=== PATIENT | male | born 1945 | race African-American/Black ===

== ENCOUNTER → 2016-07-30 | Outpatient (CLI) | payer MEDICARE, MEDICAID | END | disposition home or self-care (01) | LOC: RAD 10:28 | PROVIDERS: ATTEND Internal Medicine Nephrology | DX: R10.11 Right upper quadrant pain (principal); M47.897 Other spondylosis, lumbosacral region | CPT/HCPCS: 72110; 74010 ==

== ENCOUNTER → 2016-08-02 | Outpatient (CLI) | payer MEDICARE, MEDICAID | END | disposition home or self-care (01) | LOC: MRI 08:48 | PROVIDERS: ATTEND Internal Medicine Nephrology | DX: R10.11 Right upper quadrant pain (principal); N28.1 Cyst of kidney, acquired | CPT/HCPCS: 76700 ==

== ENCOUNTER 2018-04-14 13:54 | Inpatient (IN) | payer MEDICARE, MEDICAID ==
[~2018-04-14] VITALS: Ht 180.3 cm; Wt 80.3 kg
[2018-04-14] VITALS (21 sets, daily range): BP systolic 111–156; BP diastolic 61–82
[2018-04-14] MEDS ORDERED: LORAZEPAM 2MG/ML CPJ IM STA (13:57)
[2018-04-14] MEDS ORDERED: LORAZEPAM 2MG/ML CPJ ONE (14:06)
[2018-04-14] MEDS ORDERED: FURO-151 PO (14:11)
[2018-04-14] MEDS ORDERED: AMLO10TA80 PO (14:11)
[2018-04-14] MEDS ORDERED: SODIUM CHLORIDE 0.9% 1,000 ML IV ONE (14:19)
[2018-04-14] MEDS ORDERED: LEVETIRACETAM 1000MG/100ML 100 ML IV ONE (14:30)
[2018-04-14] MEDS ORDERED: LORAZEPAM 2MG/ML CPJ IV ONE (14:30)
[2018-04-14] MEDS ORDERED: PROPOFOL 10MG/ML 100ML 100 ML IV SCH (14:45)
[2018-04-14 15:22] LABS: HEMATOCRIT. 33.8 % (42.0-52.0); HEMOGLOBIN. 10.9 g/dL (14.0-18.0); MEAN CORPUSCULAR HEMOGLOBIN 30.3 pg (28.0-32.0); MEAN CORPUSCULAR VOLUME 93.5 fL (80.0-94.0); PLATELET 196 x1000/uL (130-400); RED BLOOD CELL COUNT 3.61 mill/uL (4.7-6.1); RED CELL DISTRIBUTION WIDTH 25.1 % (11.6-14.6)
[2018-04-14 15:24] LABS: CHLORIDE 98 mEq/L (98-107)
[2018-04-14 15:29] LABS: ETHANOL BLOOD < 10 mg/dL
[2018-04-14] MEDS ORDERED: ETOMIDATE 2MG/ML 10ML VIAL IV ONE (15:48)
[2018-04-14] MEDS ORDERED: SUCCINYLCHOLINE CHLORIDE 200MG/10ML IV ONE (15:48)
[2018-04-14 16:05] LABS: PLATELET ESTIMATE NORMAL
[2018-04-14 17:02] LABS: BG BASE EXCESS 2.6 mmol/L (-2.0-2.0); BG CARBOXYHEMOGLOBIN 0.5 % (0.5-1.5); BG DEOXYHEMOGLOBIN 0.3 % (0.0-5.0); BG FRACTION INSPIRED OXYGEN 100; BG HCO3 ACT 27.4 mmol/L (22.0-26.0); BG METHEMOGLOBIN 0.3 % (0.0-1.5); BG OXYGEN SATURATION 99.7 % (92.0-98.5); BG OXYHEMOGLOBIN 98.9 % (94.0-97.0); BG PH 7.422 (7.350-7.450); BG PO2 361.6 mmHg (75.0-100.0); BG SAMPLE SITE RIGHT RADIAL; BG TIDAL VOLUME(mL) 500 mL; BG TOTAL HEMOGLOBIN 10.5 g/dL (12.0-18.0); BG VENT MODE VENT - A/C; BG VENT RATE 12 set
[2018-04-14] MEDS ORDERED: IPRATROPIUM/ALBUTEROL 0.5-3(2.5)MG/3ML NEB HHN PRN (17:15)
[2018-04-14] MEDS ORDERED: CLONIDINE 0.1MG TABLET PO PRN (17:15)
[2018-04-14] MEDS ORDERED: CEFTRIAXONE 1 G PREMIX 50 ML IV SCH (17:45)
[2018-04-14] MEDS ORDERED: MORPHINE SULFATE 2 MG/ML CPJ (NOT FOR IM USE) IV PRN (17:45)
[2018-04-14] MEDS ORDERED: DOCUSATE SODIUM 100MG CAPSULE PO PRN (17:45)
[2018-04-14] MEDS ORDERED: HYDROCODONE/ACETAMINOPHEN 5/325MG TABLET PO PRN (17:45)
[2018-04-14] MEDS ORDERED: GUAIFENESIN 200MG/10ML SUGAR FREE UDC PO PRN (17:45)
[2018-04-14] MEDS ORDERED: IPRATROPIUM/ALBUTEROL 0.5-3(2.5)MG/3ML NEB INH PRN (17:45)
[2018-04-14] MEDS ORDERED: FENTANYL CITRATE/PF 50MCG/ML 2ML VIAL IV PRN (19:00)
[2018-04-14] MEDS ORDERED: DEXT 5%/0.45% NACL 1000ML 1,000 ML IV SCH (19:15)
[2018-04-14] MEDS: LABETALOL 5MG/ML SYR 20 MG/4 ML SYRINGE IV SCH (20:31)
[2018-04-14] MEDS: PROPOFOL 10MG/ML 100ML 100 ML IV PRN (20:31)
[2018-04-14] MEDS: IPRATROPIUM/ALBUTEROL 0.5-3(2.5)MG/3ML NEB HHN SCH (20:56)
[2018-04-14] MEDS ORDERED: CEFEPIME 1,000 MG in DEXTROSE 5% WATER 50 ML IV SCH (21:00)
[2018-04-14] MEDS: PHENYTOIN 100 MG/4 ML UDC NG SCH (21:31)
[2018-04-14] MEDS: METRONIDAZOLE 500 MG PREMIX 100 ML IV SCH (21:31)
[2018-04-14] MEDS: LEVETIRACETAM 500 MG in SODIUM CHLORIDE 0.9% 100 ML IV SCH (22:07)
[2018-04-15] VITALS (70 sets, daily range): BP systolic 82–149; BP diastolic 34–89
[2018-04-15] MEDS: PROPOFOL 10MG/ML 100ML 100 ML IV PRN ×5 (00:21→22:02)
[2018-04-15] MEDS: IPRATROPIUM/ALBUTEROL 0.5-3(2.5)MG/3ML NEB HHN SCH ×4 (01:46→20:25)
[2018-04-15] MEDS: LABETALOL 5MG/ML SYR 20 MG/4 ML SYRINGE IV SCH ×4 (01:51→20:05)
[2018-04-15] MEDS: PHENYTOIN 100 MG/4 ML UDC NG SCH ×3 (05:03→22:01)
[2018-04-15] MEDS: METRONIDAZOLE 500 MG PREMIX 100 ML IV SCH ×2 (05:03→20:05)
[2018-04-15 05:42] LABS: BASOPHILS % 0.6 % (0.0-2.0); HEMATOCRIT. 28.7 % (42.0-52.0); HEMOGLOBIN. 9.4 g/dL (14.0-18.0); MEAN CORPUSCULAR HEMOGLOBIN 30.9 pg (28.0-32.0); MEAN CORPUSCULAR VOLUME 94.4 fL (80.0-94.0); MEAN PLATELET VOLUME 8.5 fl (7.4-10.4); MONOCYTES % 11.3 % (2.0-8.0); NEUTROPHILS % 78.1 % (40.0-76.0); PLATELET 141 x1000/uL (130-400); RED BLOOD CELL COUNT 3.04 mill/uL (4.7-6.1); RED CELL DISTRIBUTION WIDTH 24.8 % (11.6-14.6)
[2018-04-15 08:19] LABS: BG BASE EXCESS -0.4 mmol/L (-2.0-2.0); BG CARBOXYHEMOGLOBIN 0.2 % (0.5-1.5); BG DEOXYHEMOGLOBIN 1.8 % (0.0-5.0); BG FRACTION INSPIRED OXYGEN 50; BG HCO3 ACT 24.6 mmol/L (22.0-26.0); BG METHEMOGLOBIN 0.3 % (0.0-1.5); BG OXYGEN SATURATION 98.2 % (92.0-98.5); BG OXYHEMOGLOBIN 97.7 % (94.0-97.0); BG PH 7.386 (7.350-7.450); BG PO2 134.2 mmHg (75.0-100.0); BG SAMPLE SITE RIGHT RADIAL; BG TIDAL VOLUME(mL) 500 mL; BG TOTAL HEMOGLOBIN 9.4 g/dL (12.0-18.0); BG VENT MODE VENT - A/C; BG VENT RATE 12 set
[2018-04-15] MEDS: LEVETIRACETAM 500 MG in SODIUM CHLORIDE 0.9% 100 ML IV SCH ×2 (08:29→22:01)
[2018-04-15] MEDS: PANTOPRAZOLE SODIUM 40 MG/VIAL IV SCH (08:31)
[2018-04-15 10:25] LABS: CHLORIDE 101 mEq/L (98-107)
[2018-04-15 10:34] LABS: HDL CHOLESTEROL 56 mg/dL (40-59); LDL CHOLESTEROL 78 mg/dL (5-100)
[2018-04-15] MEDS: BLOOD SUGAR DIAGNOSTIC STRIP TEST SCH ×3 (11:09→23:22)
[2018-04-15] MEDS: INSULIN LISPRO 100 UNITS/ML SUBCUT SCH ×2 (11:36→23:22)
[2018-04-15] MEDS: NOREPINEPHRINE 4 MG in DEXT 5% WATER 246 ML IV PRN (12:05)
[2018-04-15] MEDS ORDERED: LIDOCAINE HCL 1% 20ML VIAL (Pyxis) INJ ONE (14:13)
[2018-04-15] MEDS ORDERED: HEPARIN 100 UNITS/1 ML VIAL IVF PRN (15:15)
[2018-04-15] MEDS: CEFEPIME 1,000 MG in DEXTROSE 5% WATER 50 ML IV SCH (17:48)
[2018-04-16] VITALS (94 sets, daily range): BP systolic 102–179; BP diastolic 36–117
[2018-04-16] MEDS: LABETALOL 5MG/ML SYR 20 MG/4 ML SYRINGE IV SCH (02:00)
[2018-04-16] MEDS: PROPOFOL 10MG/ML 100ML 100 ML IV PRN ×5 (03:57→23:25)
[2018-04-16] MEDS: PHENYTOIN 100 MG/4 ML UDC NG SCH ×3 (05:27→21:07)
[2018-04-16] MEDS: BLOOD SUGAR DIAGNOSTIC STRIP TEST SCH ×4 (05:27→23:25)
[2018-04-16] MEDS: INSULIN LISPRO 100 UNITS/ML SUBCUT SCH ×4 (05:28→23:25)
[2018-04-16] MEDS: IPRATROPIUM/ALBUTEROL 0.5-3(2.5)MG/3ML NEB HHN SCH ×2 (07:42→13:26)
[2018-04-16] MEDS: LOSARTAN POTASSIUM 50 MG TABLET GT SCH ×2 (08:54→21:07)
[2018-04-16] MEDS: ACETAMINOPHEN 325MG TABLET PO PRN (08:54)
[2018-04-16] MEDS: PANTOPRAZOLE SODIUM 40 MG/VIAL IV SCH (08:55)
[2018-04-16] MEDS: METRONIDAZOLE 500 MG PREMIX 100 ML IV SCH ×2 (08:55→21:06)
[2018-04-16 11:06] LABS: BG BASE EXCESS 3.2 mmol/L (-2.0-2.0); BG CARBOXYHEMOGLOBIN 0.1 % (0.5-1.5); BG DEOXYHEMOGLOBIN 1.4 % (0.0-5.0); BG FRACTION INSPIRED OXYGEN 40; BG HCO3 ACT 27.7 mmol/L (22.0-26.0); BG METHEMOGLOBIN 0.5 % (0.0-1.5); BG OXYGEN SATURATION 98.6 % (92.0-98.5); BG PCO2 41.9 mmHg (35.0-45.0); BG PH 7.438 (7.350-7.450); BG PO2 143.8 mmHg (75.0-100.0); BG SAMPLE SITE RIGHT RADIAL; BG TIDAL VOLUME(mL) 500 mL; BG TOTAL HEMOGLOBIN 9.8 g/dL (12.0-18.0); BG VENT MODE VENT - A/C; BG VENT RATE 12 set
[2018-04-16] MEDS: LEVETIRACETAM 500 MG in SODIUM CHLORIDE 0.9% 100 ML IV SCH ×2 (11:51→22:08)
[2018-04-16] MEDS ORDERED: ACETYLCYSTEINE 100MG/ML 10% VIAL 4ML INH SCH (14:00)
[2018-04-16] MEDS ORDERED: DIPH1TAB24 MT (14:55)
[2018-04-16] MEDS ORDERED: METO-539 PO (14:55)
[2018-04-16] MEDS ORDERED: FURO40TA5 PO (14:55)
[2018-04-16] MEDS ORDERED: LORA1TAB PO (14:55)
[2018-04-16] MEDS ORDERED: AMLO5TAB88 MT (14:55)
[2018-04-16] MEDS ORDERED: OMEP10SU2 PO (14:55)
[2018-04-16] MEDS ORDERED: TRAM-529 PO (14:55)
[2018-04-16] MEDS ORDERED: PIOG30TA70 PO (14:55)
[2018-04-16] MEDS ORDERED: ESOM40CA53 PO (14:55)
[2018-04-16] MEDS ORDERED: CLON1PAT10 TD (14:55)
[2018-04-16] MEDS ORDERED: LEVE500T19 PO (14:55)
[2018-04-16] MEDS ORDERED: HYDROCODONE/APAP 7.5/325MG 1 TAB TABLET PO PRN (16:30)
[2018-04-16] MEDS: CEFEPIME 1,000 MG in DEXTROSE 5% WATER 50 ML IV SCH (17:27)
[2018-04-16] MEDS: MAGNESIUM/ALUMINUM HYDROXIDE/SIMETHICONE 30ML UDC PO PRN (21:07)
[2018-04-17] VITALS (96 sets, daily range): BP systolic 95–197; BP diastolic 42–111
[2018-04-17] MEDS: IPRATROPIUM/ALBUTEROL 0.5-3(2.5)MG/3ML NEB HHN SCH ×4 (00:58→20:03)
[2018-04-17] MEDS: PROPOFOL 10MG/ML 100ML 100 ML IV PRN ×5 (03:11→19:47)
[2018-04-17] MEDS: PHENYTOIN 100 MG/4 ML UDC NG SCH ×3 (05:53→21:12)
[2018-04-17] MEDS: BLOOD SUGAR DIAGNOSTIC STRIP TEST SCH ×3 (05:53→18:32)
[2018-04-17] MEDS: INSULIN LISPRO 100 UNITS/ML SUBCUT SCH ×2 (05:54→18:00)
[2018-04-17 07:25] LABS: HEMOGLOBIN. 9.3 g/dL (14.0-18.0); MEAN CORPUSCULAR HEMOGLOBIN 30.6 pg (28.0-32.0); MEAN CORPUSCULAR VOLUME 92.2 fL (80.0-94.0); MEAN PLATELET VOLUME 8.7 fl (7.4-10.4); PLATELET 136 x1000/uL (130-400); RED BLOOD CELL COUNT 3.04 mill/uL (4.7-6.1); RED CELL DISTRIBUTION WIDTH 23.4 % (11.6-14.6)
[2018-04-17] MEDS ORDERED: SODIUM CHLORIDE 0.9% 250 ML IV ONE (07:45)
[2018-04-17] MEDS: METRONIDAZOLE 500 MG PREMIX 100 ML IV SCH ×2 (08:06→20:37)
[2018-04-17] MEDS: ACETAMINOPHEN 325MG TABLET PO PRN ×2 (08:06→15:29)
[2018-04-17] MEDS: LOSARTAN POTASSIUM 50 MG TABLET GT SCH ×3 (08:07→20:43)
[2018-04-17 08:43] LABS: BG BASE EXCESS 0.7 mmol/L (-2.0-2.0); BG CARBOXYHEMOGLOBIN 0.3 % (0.5-1.5); BG DEOXYHEMOGLOBIN 1.7 % (0.0-5.0); BG FRACTION INSPIRED OXYGEN 40; BG HCO3 ACT 25.7 mmol/L (22.0-26.0); BG METHEMOGLOBIN 0.1 % (0.0-1.5); BG OXYGEN SATURATION 98.3 % (92.0-98.5); BG OXYHEMOGLOBIN 97.9 % (94.0-97.0); BG PCO2 43.1 mmHg (35.0-45.0); BG PH 7.394 (7.350-7.450); BG PO2 137.4 mmHg (75.0-100.0); BG SAMPLE SITE RIGHT RADIAL; BG TIDAL VOLUME(mL) 500 mL; BG TOTAL HEMOGLOBIN 9.6 g/dL (12.0-18.0); BG VENT MODE VENT - A/C; BG VENT RATE 12 set
[2018-04-17] MEDS: LEVETIRACETAM 500 MG in SODIUM CHLORIDE 0.9% 100 ML IV SCH ×2 (09:35→20:38)
[2018-04-17] MEDS: PANTOPRAZOLE SODIUM 40 MG/VIAL IV SCH (09:35)
[2018-04-17 10:00] LABS: ATYPICAL LYMPHOCYTES 1; PLATELET ESTIMATE NORMAL
[2018-04-17] MEDS: CEFEPIME 1,000 MG in DEXTROSE 5% WATER 50 ML IV SCH (17:37)
[2018-04-17] MEDS: BISACODYL 10MG SUPP PR PRN (20:38)
[2018-04-17] MEDS: MAGNESIUM/ALUMINUM HYDROXIDE/SIMETHICONE 30ML UDC PO PRN (20:38)
[2018-04-17] MEDS ORDERED: EPOETIN ALFA 10000UNITS/ML VIAL SUBCUT SCH (21:00)
[2018-04-17] MEDS ORDERED: EPOETIN ALFA 4000UNITS/ML VIAL SUBCUT SCH (21:00)
[2018-04-17] MEDS ORDERED: PARICALCITOL 5 MCG/ML 1ML IV SCH (21:00)
[2018-04-18] VITALS (92 sets, daily range): BP systolic 86–205; BP diastolic 35–191
[2018-04-18] MEDS: PROPOFOL 10MG/ML 100ML 100 ML IV PRN ×3 (01:12→09:58)
[2018-04-18] MEDS: IPRATROPIUM/ALBUTEROL 0.5-3(2.5)MG/3ML NEB HHN SCH ×4 (01:26→21:17)
[2018-04-18] MEDS: INSULIN LISPRO 100 UNITS/ML SUBCUT SCH ×4 (06:00→18:00)
[2018-04-18] MEDS: PHENYTOIN 100 MG/4 ML UDC NG SCH ×3 (06:08→22:36)
[2018-04-18] MEDS: BLOOD SUGAR DIAGNOSTIC STRIP TEST SCH ×4 (06:15→18:00)
[2018-04-18] MEDS: METRONIDAZOLE 500 MG PREMIX 100 ML IV SCH ×2 (09:56→20:59)
[2018-04-18] MEDS: LEVETIRACETAM 500 MG in SODIUM CHLORIDE 0.9% 100 ML IV SCH ×2 (09:56→20:58)
[2018-04-18] MEDS: LOSARTAN POTASSIUM 50 MG TABLET GT SCH ×2 (09:58→20:59)
[2018-04-18] MEDS: PANTOPRAZOLE SODIUM 40 MG/VIAL IV SCH (09:59)
[2018-04-18 12:30] LABS: BASOPHILS % 0.8 % (0.0-2.0); EOSINOPHILS % 2.4 % (0.0-5.0); HEMATOCRIT. 30.7 % (42.0-52.0); HEMOGLOBIN. 10.1 g/dL (14.0-18.0); LYMPHOCYTES % 10.3 % (20.0-50.0); MEAN CORPUSCULAR HEMOGLOBIN 30.4 pg (28.0-32.0); MEAN CORPUSCULAR VOLUME 92.3 fL (80.0-94.0); MEAN PLATELET VOLUME 8.4 fl (7.4-10.4); MONOCYTES % 12.8 % (2.0-8.0); NEUTROPHILS % 73.7 % (40.0-76.0); PLATELET 157 x1000/uL (130-400); RED BLOOD CELL COUNT 3.32 mill/uL (4.7-6.1); RED CELL DISTRIBUTION WIDTH 23.4 % (11.6-14.6)
[2018-04-18 12:35] LABS: PHOSPHORUS 6.8 mg/dL (2.5-4.9)
[2018-04-18] MEDS: MORPHINE SULFATE 4 MG/ML CPJ (NOT FOR IM USE) IV PRN ×2 (12:57→22:40)
[2018-04-18 13:08] LABS: PLATELET ESTIMATE NORMAL
[2018-04-18] MEDS: CINACALCET HCL 30MG TABLET PO SCH (16:18)
[2018-04-18 16:47] LABS: BG BASE EXCESS 2.7 mmol/L (-2.0-2.0); BG CARBOXYHEMOGLOBIN 0.6 % (0.5-1.5); BG CPAP (cmH2O) 0 cm(H2O); BG DEOXYHEMOGLOBIN 2.6 % (0.0-5.0); BG HCO3 ACT 27.3 mmol/L (22.0-26.0); BG METHEMOGLOBIN 0.4 % (0.0-1.5); BG OXYGEN SATURATION 97.4 % (92.0-98.5); BG OXYHEMOGLOBIN 96.4 % (94.0-97.0); BG PCO2 42.3 mmHg (35.0-45.0); BG PH 7.428 (7.350-7.450); BG PO2 98.7 mmHg (75.0-100.0); BG SAMPLE SITE RIGHT RADIAL; BG TOTAL HEMOGLOBIN 11.2 g/dL (12.0-18.0); BG VENT MODE VENT - CPAP
[2018-04-18] MEDS: CEFEPIME 1,000 MG in DEXTROSE 5% WATER 50 ML IV SCH (18:00)
[2018-04-18] MEDS: LORAZEPAM 2MG/ML CPJ IV PRN ×2 (18:01→22:39)
[2018-04-18 22:02] LABS: BG BASE EXCESS 2.1 mmol/L (-2.0-2.0); BG CARBOXYHEMOGLOBIN 0.7 % (0.5-1.5); BG DEOXYHEMOGLOBIN 19.2 % (0.0-5.0); BG FRACTION INSPIRED OXYGEN 40; BG HCO3 ACT 27.8 mmol/L (22.0-26.0); BG METHEMOGLOBIN 0.3 % (0.0-1.5); BG OXYGEN SATURATION 80.6 % (92.0-98.5); BG OXYHEMOGLOBIN 79.8 % (94.0-97.0); BG PCO2 47.7 mmHg (35.0-45.0); BG PH 7.383 (7.350-7.450); BG PO2 48.8 mmHg (75.0-100.0); BG SAMPLE SITE RIGHT RADIAL; BG TOTAL HEMOGLOBIN 12.7 g/dL (12.0-18.0); BG VENT MODE MASK - AEROSOL
[2018-04-19] VITALS (103 sets, daily range): BP systolic 90–186; BP diastolic 26–143
[2018-04-19] MEDS: IPRATROPIUM/ALBUTEROL 0.5-3(2.5)MG/3ML NEB HHN SCH ×4 (00:37→21:41)
[2018-04-19 00:49] LABS: BG BASE EXCESS 2.7 mmol/L (-2.0-2.0); BG CARBOXYHEMOGLOBIN 0.2 % (0.5-1.5); BG DEOXYHEMOGLOBIN 4.6 % (0.0-5.0); BG FRACTION INSPIRED OXYGEN 50; BG HCO3 ACT 28.3 mmol/L (22.0-26.0); BG METHEMOGLOBIN 0.5 % (0.0-1.5); BG OXYGEN SATURATION 95.4 % (92.0-98.5); BG OXYHEMOGLOBIN 94.7 % (94.0-97.0); BG PCO2 47.8 mmHg (35.0-45.0); BG PO2 84.6 mmHg (75.0-100.0); BG SAMPLE SITE RIGHT RADIAL; BG TOTAL HEMOGLOBIN 11.8 g/dL (12.0-18.0); BG VENT MODE MASK - AEROSOL
[2018-04-19] MEDS: ONDANSETRON HCL 4MG/2ML INJ IV PRN (02:00)
[2018-04-19] MEDS: INSULIN LISPRO 100 UNITS/ML SUBCUT SCH ×5 (06:00→23:56)
[2018-04-19] MEDS: BLOOD SUGAR DIAGNOSTIC STRIP TEST SCH ×5 (06:00→23:56)
[2018-04-19] MEDS: PHENYTOIN 100 MG/4 ML UDC NG SCH ×3 (07:56→22:28)
[2018-04-19] MEDS: METRONIDAZOLE 500 MG PREMIX 100 ML IV SCH ×2 (08:37→21:19)
[2018-04-19] MEDS: LOSARTAN POTASSIUM 50 MG TABLET GT SCH ×2 (08:37→21:19)
[2018-04-19] MEDS: LEVETIRACETAM 500 MG in SODIUM CHLORIDE 0.9% 100 ML IV SCH (08:37)
[2018-04-19 09:54] LABS: BG BASE EXCESS 0.3 mmol/L (-2.0-2.0); BG CARBOXYHEMOGLOBIN 1.1 % (0.5-1.5); BG DEOXYHEMOGLOBIN 3.1 % (0.0-5.0); BG FRACTION INSPIRED OXYGEN 50; BG HCO3 ACT 25.8 mmol/L (22.0-26.0); BG METHEMOGLOBIN 0.3 % (0.0-1.5); BG OXYGEN SATURATION 96.9 % (92.0-98.5); BG OXYHEMOGLOBIN 95.5 % (94.0-97.0); BG PCO2 45.5 mmHg (35.0-45.0); BG PH 7.372 (7.350-7.450); BG PO2 93.6 mmHg (75.0-100.0); BG SAMPLE SITE RIGHT RADIAL; BG TOTAL HEMOGLOBIN 11.5 g/dL (12.0-18.0); BG VENT MODE MASK - AEROSOL
[2018-04-19] MEDS: LORAZEPAM 2MG/ML CPJ IV PRN (10:13)
[2018-04-19] MEDS: PANTOPRAZOLE SODIUM 40 MG/VIAL IV SCH (10:13)
[2018-04-19] MEDS: ENOXAPARIN 30MG/0.3ML SYR SUBCUT SCH (13:46)
[2018-04-19] MEDS: METOCLOPRAMIDE HCL 10MG/2ML VIAL IV SCH ×2 (13:47→21:19)
[2018-04-19] MEDS: HYDRALAZINE 20MG/ML VIAL IV PRN (13:47)
[2018-04-19] MEDS: CINACALCET HCL 30MG TABLET PO SCH (17:00)
[2018-04-19] MEDS: CEFEPIME 1,000 MG in DEXTROSE 5% WATER 50 ML IV SCH (17:58)
[2018-04-19] MEDS ORDERED: EPOETIN ALFA 10000UNITS/ML VIAL SUBCUT SCH (21:00)
[2018-04-19] MEDS: PARICALCITOL 2 MCG/ML VIAL IV SCH (21:19)
[2018-04-19] MEDS: LEVETIRACETAM 500MG/5ML CUP PO SCH (21:19)
[2018-04-20] VITALS (60 sets, daily range): BP systolic 118–188; BP diastolic 54–138
[2018-04-20] MEDS: IPRATROPIUM/ALBUTEROL 0.5-3(2.5)MG/3ML NEB HHN SCH ×4 (02:32→20:19)
[2018-04-20] MEDS: BLOOD SUGAR DIAGNOSTIC STRIP TEST SCH ×4 (06:00→23:24)
[2018-04-20] MEDS: INSULIN LISPRO 100 UNITS/ML SUBCUT SCH ×4 (06:00→23:24)
[2018-04-20] MEDS: PHENYTOIN 100 MG/4 ML UDC NG SCH ×3 (06:00→21:12)
[2018-04-20] MEDS: METOCLOPRAMIDE HCL 10MG/2ML VIAL IV SCH ×3 (07:16→21:13)
[2018-04-20] MEDS: HYDRALAZINE 20MG/ML VIAL IV PRN ×2 (07:53→23:23)
[2018-04-20 08:34] LABS: BG BASE EXCESS 2.9 mmol/L (-2.0-2.0); BG DEOXYHEMOGLOBIN 4.2 % (0.0-5.0); BG FRACTION INSPIRED OXYGEN 21; BG HCO3 ACT 26.4 mmol/L (22.0-26.0); BG METHEMOGLOBIN 0.4 % (0.0-1.5); BG OXYGEN SATURATION 95.7 % (92.0-98.5); BG OXYHEMOGLOBIN 94.4 % (94.0-97.0); BG PCO2 36.5 mmHg (35.0-45.0); BG PH 7.477 (7.350-7.450); BG SAMPLE SITE RIGHT BRACHIAL; BG TOTAL HEMOGLOBIN 12.2 g/dL (12.0-18.0); BG VENT MODE ROOM AIR
[2018-04-20] MEDS: PANTOPRAZOLE SODIUM 40 MG/VIAL IV SCH (08:35)
[2018-04-20] MEDS: LEVETIRACETAM 500MG/5ML CUP PO SCH (09:58)
[2018-04-20] MEDS: DOCUSATE SODIUM SUGAR FREE 100MG/10ML UDC NG PRN (09:58)
[2018-04-20] MEDS: METRONIDAZOLE 500 MG PREMIX 100 ML IV SCH ×2 (09:59→21:27)
[2018-04-20] MEDS: ONDANSETRON HCL 4MG/2ML INJ IV PRN (09:59)
[2018-04-20] MEDS: LOSARTAN POTASSIUM 50 MG TABLET GT SCH ×2 (09:59→21:13)
[2018-04-20] MEDS: AMLODIPINE 5MG TABLET PO SCH ×2 (10:00→21:13)
[2018-04-20] MEDS: ENOXAPARIN 30MG/0.3ML SYR SUBCUT SCH (10:00)
[2018-04-20] MEDS: MORPHINE SULFATE 4 MG/ML CPJ (NOT FOR IM USE) IV PRN ×2 (10:08→16:25)
[2018-04-20] MEDS: CLONIDINE 0.1MG TABLET PO PRN (15:21)
[2018-04-20] MEDS: BISACODYL 10MG SUPP PR PRN (15:21)
[2018-04-20] MEDS: ACETAMINOPHEN 325MG TABLET PO PRN (16:24)
[2018-04-20] MEDS: CINACALCET HCL 30MG TABLET PO SCH (17:00)
[2018-04-20] MEDS: LORAZEPAM 2MG/ML CPJ IV PRN (17:16)
[2018-04-20] MEDS: CEFEPIME 1,000 MG in DEXTROSE 5% WATER 50 ML IV SCH (18:11)
[2018-04-20] MEDS: DIPHENHYDRAMINE 50MG/ML VIAL IV PRN (21:13)
[2018-04-20] MEDS: LEVETIRACETAM 500 MG in SODIUM CHLORIDE 0.9% 100 ML IV SCH (22:23)
[2018-04-21] VITALS (90 sets, daily range): BP systolic 68–194; BP diastolic 26–91
[2018-04-21] MEDS: LORAZEPAM 2MG/ML CPJ IV PRN (01:06)
[2018-04-21] MEDS: IPRATROPIUM/ALBUTEROL 0.5-3(2.5)MG/3ML NEB HHN SCH ×4 (02:11→20:23)
[2018-04-21] MEDS: METOCLOPRAMIDE HCL 10MG/2ML VIAL IV SCH ×3 (05:53→21:22)
[2018-04-21] MEDS: PHENYTOIN 100 MG/4 ML UDC NG SCH ×3 (05:53→21:22)
[2018-04-21] MEDS: BLOOD SUGAR DIAGNOSTIC STRIP TEST SCH ×4 (05:53→23:23)
[2018-04-21] MEDS: INSULIN LISPRO 100 UNITS/ML SUBCUT SCH ×4 (05:53→23:23)
[2018-04-21 06:10] LABS: HEMATOCRIT. 31.8 % (42.0-52.0); HEMOGLOBIN. 10.4 g/dL (14.0-18.0); MEAN CORPUSCULAR HEMOGLOBIN 30.5 pg (28.0-32.0); MEAN CORPUSCULAR VOLUME 93.1 fL (80.0-94.0); MEAN PLATELET VOLUME 8.5 fl (7.4-10.4); PLATELET 263 x1000/uL (130-400); RED BLOOD CELL COUNT 3.42 mill/uL (4.7-6.1); RED CELL DISTRIBUTION WIDTH 22.4 % (11.6-14.6)
[2018-04-21 07:59] LABS: PLATELET ESTIMATE NORMAL
[2018-04-21] MEDS: PANTOPRAZOLE SODIUM 40 MG/VIAL IV SCH (07:59)
[2018-04-21] MEDS: METRONIDAZOLE 500 MG PREMIX 100 ML IV SCH ×2 (08:00→20:54)
[2018-04-21] MEDS: LOSARTAN POTASSIUM 50 MG TABLET GT SCH ×2 (09:00→20:54)
[2018-04-21] MEDS: AMLODIPINE 5MG TABLET PO SCH ×2 (09:00→20:54)
[2018-04-21] MEDS: ENOXAPARIN 30MG/0.3ML SYR SUBCUT SCH (09:00)
[2018-04-21] MEDS: DIPHENHYDRAMINE 50MG/ML VIAL IV PRN (10:14)
[2018-04-21] MEDS ORDERED: FLUMAZENIL 0.1 MG/ML 5ML VIAL IV NR (11:00)
[2018-04-21] MEDS: SUCRALFATE 1 G/10 ML UDC PO SCH ×3 (12:48→23:09)
[2018-04-21] MEDS: PROPOFOL 10MG/ML 100ML 100 ML IV PRN ×2 (12:51→17:24)
[2018-04-21] MEDS: DEXT 5%/0.9% NACL 1,000 ML IV SCH (12:53)
[2018-04-21] MEDS: NOREPINEPHRINE 4 MG in DEXT 5% WATER 246 ML IV PRN (13:46)
[2018-04-21] MEDS ORDERED: SODIUM CHLORIDE 0.9% 10ML VIAL ONE (15:56)
[2018-04-21] MEDS ORDERED: ETOMIDATE 2MG/ML 10ML VIAL IV ONE (15:56)
[2018-04-21] MEDS ORDERED: VECURONIUM BROMIDE 10 MG/VIAL IV ONE (15:56)
[2018-04-21 16:58] LABS: HEMATOCRIT 32.7 % (42.0-52.0); HEMOGLOBIN 10.6 g/dL (14.0-18.0)
[2018-04-21] MEDS: CINACALCET HCL 30MG TABLET PO SCH (17:00)
[2018-04-21] MEDS: LEVETIRACETAM 500 MG in SODIUM CHLORIDE 0.9% 100 ML IV SCH ×2 (17:08→22:24)
[2018-04-21 17:26] LABS: FOLIC ACID (FOLATE) SERUM 7.8 ng/mL (>5.38)
[2018-04-21 17:37] LABS: BG BASE EXCESS 2.3 mmol/L (-2.0-2.0); BG CARBOXYHEMOGLOBIN 0.3 % (0.5-1.5); BG FRACTION INSPIRED OXYGEN 80; BG HCO3 ACT 25.4 mmol/L (22.0-26.0); BG METHEMOGLOBIN 0.5 % (0.0-1.5); BG OXYHEMOGLOBIN 98.2 % (94.0-97.0); BG PCO2 33.7 mmHg (35.0-45.0); BG PH 7.495 (7.350-7.450); BG PO2 158.6 mmHg (75.0-100.0); BG SAMPLE SITE RIGHT RADIAL; BG TIDAL VOLUME(mL) 500 mL; BG TOTAL HEMOGLOBIN 9.9 g/dL (12.0-18.0); BG VENT MODE VENT - A/C; BG VENT RATE 14 set
[2018-04-21 17:39] LABS: TOTAL IRON BINDING CAPACITY 120 ug/dL (250-450)
[2018-04-21] MEDS: DEXTROSE 50% WATER 50ML SYRINGE IV PRN ×2 (18:06→23:25)
[2018-04-21] MEDS: CEFEPIME 1,000 MG in DEXTROSE 5% WATER 50 ML IV SCH (18:34)
[2018-04-21 23:13] LABS: HEMATOCRIT 28.2 % (42.0-52.0); HEMOGLOBIN 9.4 g/dL (14.0-18.0)
[2018-04-22] VITALS (84 sets, daily range): BP systolic 93–174; BP diastolic 43–87
[2018-04-22] MEDS: PROPOFOL 10MG/ML 100ML 100 ML IV PRN ×2 (00:29→05:14)
[2018-04-22] MEDS: IPRATROPIUM/ALBUTEROL 0.5-3(2.5)MG/3ML NEB HHN SCH ×3 (02:08→20:39)
[2018-04-22] MEDS: SUCRALFATE 1 G/10 ML UDC PO SCH ×3 (05:14→17:41)
[2018-04-22] MEDS: METOCLOPRAMIDE HCL 10MG/2ML VIAL IV SCH ×3 (05:14→21:36)
[2018-04-22] MEDS: PHENYTOIN 100 MG/4 ML UDC NG SCH ×3 (05:14→21:36)
[2018-04-22 05:35] LABS: EOSINOPHILS % 3.6 % (0.0-5.0); HEMATOCRIT. 30.1 % (42.0-52.0); HEMOGLOBIN. 9.7 g/dL (14.0-18.0); LYMPHOCYTES % 9.6 % (20.0-50.0); MEAN CORPUSCULAR HEMOGLOBIN 30.1 pg (28.0-32.0); MEAN CORPUSCULAR VOLUME 92.8 fL (80.0-94.0); MEAN PLATELET VOLUME 8.2 fl (7.4-10.4); MONOCYTES % 14.5 % (2.0-8.0); NEUTROPHILS % 71.3 % (40.0-76.0); PLATELET 266 x1000/uL (130-400); RED BLOOD CELL COUNT 3.24 mill/uL (4.7-6.1)
[2018-04-22 05:54] LABS: PHOSPHORUS 3.9 mg/dL (2.5-4.9)
[2018-04-22] MEDS: INSULIN LISPRO 100 UNITS/ML SUBCUT SCH ×3 (06:00→18:00)
[2018-04-22] MEDS: BLOOD SUGAR DIAGNOSTIC STRIP TEST SCH ×3 (06:14→18:37)
[2018-04-22 07:27] LABS: BG BASE EXCESS 4.5 mmol/L (-2.0-2.0); BG CARBOXYHEMOGLOBIN 0.3 % (0.5-1.5); BG DEOXYHEMOGLOBIN 0.6 % (0.0-5.0); BG HCO3 ACT 28.1 mmol/L (22.0-26.0); BG METHEMOGLOBIN 0.3 % (0.0-1.5); BG OXYGEN SATURATION 99.4 % (92.0-98.5); BG OXYHEMOGLOBIN 98.8 % (94.0-97.0); BG PCO2 37.5 mmHg (35.0-45.0); BG PH 7.492 (7.350-7.450); BG PO2 207.2 mmHg (75.0-100.0); BG SAMPLE SITE RIGHT RADIAL; BG TIDAL VOLUME(mL) 500 mL; BG TOTAL HEMOGLOBIN 9.1 g/dL (12.0-18.0); BG VENT MODE VENT - A/C; BG VENT RATE 14 set
[2018-04-22] MEDS: PANTOPRAZOLE SODIUM 40 MG/VIAL IV SCH ×2 (09:17→17:29)
[2018-04-22] MEDS: LOSARTAN POTASSIUM 50 MG TABLET GT SCH ×2 (09:18→20:30)
[2018-04-22] MEDS: AMLODIPINE 5MG TABLET PO SCH ×2 (09:18→20:30)
[2018-04-22] MEDS: DEXT 5%/0.9% NACL 1,000 ML IV SCH (10:12)
[2018-04-22] MEDS: LEVETIRACETAM 500 MG in SODIUM CHLORIDE 0.9% 100 ML IV SCH ×2 (10:12→21:36)
[2018-04-22] MEDS: METRONIDAZOLE 500 MG PREMIX 100 ML IV SCH ×2 (11:03→20:28)
[2018-04-22] MEDS: FENTANYL CITRATE/PF 500 MCG in SODIUM CHLORIDE 0.9% 40 ML IV PRN ×2 (11:58→20:29)
[2018-04-22] MEDS: BISACODYL 10MG SUPP PR PRN (12:00)
[2018-04-22] MEDS ORDERED: DEXTROSE 50% WATER 50ML SYRINGE IV PRN (16:15)
[2018-04-22] MEDS: CINACALCET HCL 30MG TABLET PO SCH (17:29)
[2018-04-22] MEDS: CEFEPIME 1,000 MG in DEXTROSE 5% WATER 50 ML IV SCH (17:29)
[2018-04-22] MEDS: MORPHINE SULFATE 4 MG/ML CPJ (NOT FOR IM USE) IV PRN (17:51)
[2018-04-22] MEDS: HYDRALAZINE 20MG/ML VIAL IV PRN (19:24)
[2018-04-22 19:43] LABS: HEMOGLOBIN 10.2 g/dL (14.0-18.0)
[2018-04-22 20:27] LABS: INR 1.1; PARTIAL THROMBOPLASTIN TIME 33.1 sec (23.4-31.0)
[2018-04-22] MEDS: PARICALCITOL 2 MCG/ML VIAL IV SCH (20:29)
[2018-04-22] MEDS: DIPHENHYDRAMINE 50MG/ML VIAL IV PRN (20:57)
[2018-04-23] VITALS (96 sets, daily range): BP systolic 92–195; BP diastolic 41–162
[2018-04-23] MEDS: BLOOD SUGAR DIAGNOSTIC STRIP TEST SCH ×5 (00:13→23:59)
[2018-04-23] MEDS: DEXTROSE 50% WATER 50ML SYRINGE IV PRN (00:23)
[2018-04-23 01:15] LABS: HEMOGLOBIN 9.2 g/dL (14.0-18.0)
[2018-04-23] MEDS: IPRATROPIUM/ALBUTEROL 0.5-3(2.5)MG/3ML NEB HHN SCH ×4 (01:39→20:27)
[2018-04-23] MEDS: SUCRALFATE 1 G/10 ML UDC PO SCH ×4 (05:47→18:40)
[2018-04-23] MEDS: PHENYTOIN 100 MG/4 ML UDC NG SCH ×3 (05:47→22:03)
[2018-04-23] MEDS: INSULIN LISPRO 100 UNITS/ML SUBCUT SCH ×5 (05:49→23:59)
[2018-04-23] MEDS: METOCLOPRAMIDE HCL 10MG/2ML VIAL IV SCH ×3 (05:51→22:03)
[2018-04-23] MEDS: FENTANYL CITRATE/PF 500 MCG in SODIUM CHLORIDE 0.9% 40 ML IV PRN ×3 (05:55→21:57)
[2018-04-23 06:39] LABS: HEMATOCRIT. 28.9 % (42.0-52.0); HEMOGLOBIN. 9.3 g/dL (14.0-18.0); MEAN CORPUSCULAR HEMOGLOBIN 30.2 pg (28.0-32.0); MEAN CORPUSCULAR VOLUME 93.7 fL (80.0-94.0); PLATELET 277 x1000/uL (130-400); RED BLOOD CELL COUNT 3.09 mill/uL (4.7-6.1); RED CELL DISTRIBUTION WIDTH 21.6 % (11.6-14.6)
[2018-04-23 07:13] LABS: PHOSPHORUS 4.4 mg/dL (2.5-4.9)
[2018-04-23 07:21] LABS: PLATELET ESTIMATE NORMAL
[2018-04-23] MEDS: AMLODIPINE 5MG TABLET PO SCH ×2 (09:00→20:44)
[2018-04-23] MEDS: LOSARTAN POTASSIUM 50 MG TABLET GT SCH ×2 (09:00→20:44)
[2018-04-23] MEDS: PANTOPRAZOLE SODIUM 40 MG/VIAL IV SCH ×2 (09:07→17:55)
[2018-04-23] MEDS: METRONIDAZOLE 500 MG PREMIX 100 ML IV SCH ×2 (09:08→20:43)
[2018-04-23] MEDS: LEVETIRACETAM 500 MG in SODIUM CHLORIDE 0.9% 100 ML IV SCH ×2 (10:54→22:03)
[2018-04-23] MEDS: MORPHINE SULFATE 4 MG/ML CPJ (NOT FOR IM USE) IV PRN (10:59)
[2018-04-23] MEDS: DEXT 5%/0.9% NACL 1,000 ML IV SCH (12:31)
[2018-04-23] MEDS: HYDRALAZINE 20MG/ML VIAL IV PRN (12:31)
[2018-04-23] MEDS: DIPHENHYDRAMINE 50MG/ML VIAL IV PRN (14:12)
[2018-04-23 17:26] LABS: HEMOGLOBIN 10.6 g/dL (14.0-18.0)
[2018-04-23] MEDS: CINACALCET HCL 30MG TABLET PO SCH (17:55)
[2018-04-23] MEDS: CEFEPIME 1,000 MG in DEXTROSE 5% WATER 50 ML IV SCH (18:40)
[2018-04-23] MEDS: ACETAMINOPHEN 325MG TABLET PO PRN (19:33)
[2018-04-23] MEDS ORDERED: PARICALCITOL 2 MCG/ML VIAL IV SCH (21:00)
[2018-04-23] MEDS ORDERED: TOTAL PARENTERAL NUTRITION 1,300 ML IV SCH (21:00)
[2018-04-23] MEDS ORDERED: EPOETIN ALFA 10000UNITS/ML VIAL SUBCUT SCH (21:00)
[2018-04-24] VITALS (76 sets, daily range): BP systolic 120–187; BP diastolic 51–111
[2018-04-24] MEDS: MORPHINE SULFATE 4 MG/ML CPJ (NOT FOR IM USE) IV PRN ×2 (00:21→04:17)
[2018-04-24] MEDS: DIPHENHYDRAMINE 50MG/ML VIAL IV PRN (01:16)
[2018-04-24] MEDS: HYDRALAZINE 20MG/ML VIAL IV PRN ×2 (01:57→08:49)
[2018-04-24] MEDS: IPRATROPIUM/ALBUTEROL 0.5-3(2.5)MG/3ML NEB HHN SCH ×4 (02:25→22:09)
[2018-04-24] MEDS: FENTANYL CITRATE/PF 500 MCG in SODIUM CHLORIDE 0.9% 40 ML IV PRN ×2 (02:52→08:49)
[2018-04-24 05:48] LABS: CHLORIDE 98 mEq/L (98-107); HEMATOCRIT. 31.9 % (42.0-52.0); HEMOGLOBIN. 10.3 g/dL (14.0-18.0); MEAN CORPUSCULAR HEMOGLOBIN 30.1 pg (28.0-32.0); MEAN CORPUSCULAR VOLUME 93.3 fL (80.0-94.0); MEAN PLATELET VOLUME 8.1 fl (7.4-10.4); PLATELET 340 x1000/uL (130-400); RED BLOOD CELL COUNT 3.42 mill/uL (4.7-6.1); RED CELL DISTRIBUTION WIDTH 21.6 % (11.6-14.6)
[2018-04-24] MEDS: PHENYTOIN 100 MG/4 ML UDC NG SCH ×3 (06:00→21:47)
[2018-04-24] MEDS: SUCRALFATE 1 G/10 ML UDC PO SCH ×5 (06:00→23:34)
[2018-04-24] MEDS: INSULIN LISPRO 100 UNITS/ML SUBCUT SCH ×4 (06:00→23:33)
[2018-04-24] MEDS: BLOOD SUGAR DIAGNOSTIC STRIP TEST SCH ×4 (06:28→23:34)
[2018-04-24] MEDS: METOCLOPRAMIDE HCL 10MG/2ML VIAL IV SCH ×3 (06:29→21:47)
[2018-04-24 07:45] LABS: PLATELET ESTIMATE NORMAL
[2018-04-24 08:28] LABS: BG BASE EXCESS 1.1 mmol/L (-2.0-2.0); BG CARBOXYHEMOGLOBIN 0.3 % (0.5-1.5); BG DEOXYHEMOGLOBIN 0.8 % (0.0-5.0); BG FRACTION INSPIRED OXYGEN 50; BG METHEMOGLOBIN 0.1 % (0.0-1.5); BG OXYGEN SATURATION 99.2 % (92.0-98.5); BG OXYHEMOGLOBIN 98.8 % (94.0-97.0); BG PCO2 42.7 mmHg (35.0-45.0); BG PH 7.403 (7.350-7.450); BG PO2 178.9 mmHg (75.0-100.0); BG PRESSURE SUPPORT 12; BG SAMPLE SITE RIGHT RADIAL; BG TIDAL VOLUME(mL) 500 mL; BG TOTAL HEMOGLOBIN 11.1 g/dL (12.0-18.0); BG VENT MODE VENT - SIMV; BG VENT RATE 10 set
[2018-04-24] MEDS ORDERED: LORAZEPAM 2MG/ML CPJ IV PRN (08:45)
[2018-04-24] MEDS: PANTOPRAZOLE SODIUM 40 MG/VIAL IV SCH ×2 (08:46→16:08)
[2018-04-24] MEDS: LOSARTAN POTASSIUM 50 MG TABLET GT SCH ×2 (09:00→20:18)
[2018-04-24] MEDS: AMLODIPINE 5MG TABLET PO SCH ×2 (09:00→20:18)
[2018-04-24] MEDS: METRONIDAZOLE 500 MG PREMIX 100 ML IV SCH ×2 (10:00→20:17)
[2018-04-24] MEDS: LEVETIRACETAM 500 MG in SODIUM CHLORIDE 0.9% 100 ML IV SCH ×2 (10:37→21:46)
[2018-04-24] MEDS ORDERED: LORAZEPAM 2MG/ML CPJ IV NR (10:45)
[2018-04-24] MEDS ORDERED: ENALAPRIL 2.5MG/2ML VIAL 2ML IV PRN (13:00)
[2018-04-24] MEDS ORDERED: ENALAPRIL 2.5MG/2ML VIAL 2ML IV SCH (13:00)
[2018-04-24] MEDS ORDERED: ENALAPRIL 1.25MG/ML VIAL 1ML IV SCH (13:08)
[2018-04-24] MEDS ORDERED: KCL 20MEQ/100ML PREMIX 100 ML IV SCH (14:00)
[2018-04-24] MEDS ORDERED: MIDAZOLAM HCL 5 MG/5 ML VIAL ONE (14:57)
[2018-04-24] MEDS ORDERED: FENTANYL CITRATE/PF 50MCG/ML 2ML VIAL ONE (14:57)
[2018-04-24] MEDS: CINACALCET HCL 30MG TABLET PO SCH (16:09)
[2018-04-24 16:51] LABS: BG BASE EXCESS 1.2 mmol/L (-2.0-2.0); BG CARBOXYHEMOGLOBIN 0.4 % (0.5-1.5); BG DEOXYHEMOGLOBIN 1.3 % (0.0-5.0); BG FRACTION INSPIRED OXYGEN 50; BG HCO3 ACT 25.8 mmol/L (22.0-26.0); BG METHEMOGLOBIN 0.4 % (0.0-1.5); BG OXYGEN SATURATION 98.7 % (92.0-98.5); BG OXYHEMOGLOBIN 97.9 % (94.0-97.0); BG PCO2 40.9 mmHg (35.0-45.0); BG PH 7.418 (7.350-7.450); BG PO2 135.5 mmHg (75.0-100.0); BG PRESSURE SUPPORT 8; BG SAMPLE SITE RIGHT RADIAL; BG TOTAL HEMOGLOBIN 11.8 g/dL (12.0-18.0); BG VENT MODE VENT - CPAP
[2018-04-24] MEDS: CEFEPIME 1,000 MG in DEXTROSE 5% WATER 50 ML IV SCH (18:36)
[2018-04-24] MEDS: QUETIAPINE FUMARATE 25MG TABLET PO SCH (20:18)
[2018-04-24] MEDS ORDERED: TOTAL PARENTERAL NUTRITION 1,300 ML IV SCH (21:00)
[2018-04-24] MEDS: LORAZEPAM 2MG/ML CPJ IV PRN (22:55)
[2018-04-25] VITALS (63 sets, daily range): BP systolic 109–180; BP diastolic 49–137
[2018-04-25] MEDS: IPRATROPIUM/ALBUTEROL 0.5-3(2.5)MG/3ML NEB HHN SCH ×4 (01:56→21:15)
[2018-04-25] MEDS: LORAZEPAM 2MG/ML CPJ IV PRN (03:07)
[2018-04-25] MEDS: DIPHENHYDRAMINE 50MG/ML VIAL IV PRN (03:15)
[2018-04-25 04:56] LABS: HEMATOCRIT. 30.7 % (42.0-52.0); MEAN CORPUSCULAR HEMOGLOBIN 30.5 pg (28.0-32.0); MEAN CORPUSCULAR VOLUME 94.1 fL (80.0-94.0); MEAN PLATELET VOLUME 7.7 fl (7.4-10.4); PLATELET 321 x1000/uL (130-400); RED BLOOD CELL COUNT 3.26 mill/uL (4.7-6.1); RED CELL DISTRIBUTION WIDTH 20.6 % (11.6-14.6)
[2018-04-25] MEDS: METOCLOPRAMIDE HCL 10MG/2ML VIAL IV SCH ×3 (05:20→22:53)
[2018-04-25] MEDS: SUCRALFATE 1 G/10 ML UDC PO SCH ×4 (05:33→23:50)
[2018-04-25] MEDS: BLOOD SUGAR DIAGNOSTIC STRIP TEST SCH ×4 (05:37→23:50)
[2018-04-25] MEDS: INSULIN LISPRO 100 UNITS/ML SUBCUT SCH ×3 (05:37→17:53)
[2018-04-25] MEDS: PHENYTOIN 100 MG/4 ML UDC NG SCH ×2 (05:37→14:00)
[2018-04-25 06:46] LABS: PLATELET ESTIMATE NORMAL
[2018-04-25] MEDS: QUETIAPINE FUMARATE 25MG TABLET PO SCH ×2 (09:00→20:22)
[2018-04-25] MEDS: LOSARTAN POTASSIUM 50 MG TABLET GT SCH ×2 (09:00→20:22)
[2018-04-25] MEDS: AMLODIPINE 5MG TABLET PO SCH ×2 (09:00→20:22)
[2018-04-25] MEDS: METRONIDAZOLE 500 MG PREMIX 100 ML IV SCH ×2 (10:53→21:36)
[2018-04-25] MEDS: PANTOPRAZOLE SODIUM 40 MG/VIAL IV SCH ×2 (11:07→18:04)
[2018-04-25] MEDS ORDERED: LIDOCAINE HCL 2% JELLY 5ML MM NR (11:15)
[2018-04-25] MEDS: MORPHINE SULFATE 4 MG/ML CPJ (NOT FOR IM USE) IV PRN (11:24)
[2018-04-25] MEDS: LEVETIRACETAM 500 MG in SODIUM CHLORIDE 0.9% 100 ML IV SCH ×2 (11:30→22:54)
[2018-04-25] MEDS ORDERED: SIMETHICONE 40 MG/0.6 ML 30ML ONE (12:48)
[2018-04-25] MEDS ORDERED: SODIUM CHLORIDE 0.9% 10ML VIAL ONE (14:06)
[2018-04-25] MEDS ORDERED: FENTANYL CITRATE/PF 50MCG/ML 2ML VIAL ONE (14:20)
[2018-04-25] MEDS ORDERED: MIDAZOLAM HCL 5 MG/5 ML VIAL ONE (14:20)
[2018-04-25] MEDS ORDERED: MIDAZOLAM HCL 2 MG/2 ML VIAL IV PRN (14:45)
[2018-04-25] MEDS: BISACODYL 10MG SUPP PR PRN (15:54)
[2018-04-25] MEDS ORDERED: LORAZEPAM 2MG/ML CPJ IV PRN (16:45)
[2018-04-25] MEDS: CINACALCET HCL 30MG TABLET PO SCH (17:00)
[2018-04-25] MEDS: NA PHOS,M-B/NA PHOS,DI-BA ENEMA 118ML PR PRN (18:00)
[2018-04-25] MEDS: ENALAPRIL 1.25MG/ML VIAL 1ML IV PRN (18:04)
[2018-04-25] MEDS: CEFEPIME 1,000 MG in DEXTROSE 5% WATER 50 ML IV SCH (18:10)
[2018-04-25] MEDS ORDERED: NON FORMULARY PATIENT HOME MED XX SCH (20:45)
[2018-04-25] MEDS ORDERED: TOTAL PARENTERAL NUTRITION 1,300 ML IV SCH ×2 (21:00)
[2018-04-25] MEDS ORDERED: EPOETIN ALFA 4000UNITS/ML VIAL SUBCUT SCH (21:00)
[2018-04-25] MEDS: HYDRALAZINE 20MG/ML VIAL IV PRN (23:06)
[2018-04-25] MEDS: FOSPHENYTOIN SODIUM IJ SCH (23:23)
[2018-04-26] VITALS (67 sets, daily range): BP systolic 102–191; BP diastolic 46–100
[2018-04-26] MEDS: INSULIN LISPRO 100 UNITS/ML SUBCUT SCH ×4 (00:02→18:00)
[2018-04-26] MEDS: IPRATROPIUM/ALBUTEROL 0.5-3(2.5)MG/3ML NEB HHN SCH ×4 (01:29→20:44)
[2018-04-26] MEDS: ENALAPRIL 1.25MG/ML VIAL 1ML IV PRN (02:01)
[2018-04-26] MEDS ORDERED: MORPHINE SULFATE 10 MG/ML CPJ IV PRN (02:30)
[2018-04-26] MEDS: SUCRALFATE 1 G/10 ML UDC PO SCH ×3 (06:45→17:50)
[2018-04-26] MEDS: BLOOD SUGAR DIAGNOSTIC STRIP TEST SCH ×3 (06:45→18:18)
[2018-04-26] MEDS: FOSPHENYTOIN SODIUM IJ SCH ×3 (06:45→22:29)
[2018-04-26] MEDS: METOCLOPRAMIDE HCL 10MG/2ML VIAL IV SCH ×3 (06:45→21:11)
[2018-04-26] MEDS: METRONIDAZOLE 500 MG PREMIX 100 ML IV SCH ×2 (09:02→22:28)
[2018-04-26] MEDS: PANTOPRAZOLE SODIUM 40 MG/VIAL IV SCH ×2 (09:02→17:50)
[2018-04-26] MEDS: LOSARTAN POTASSIUM 50 MG TABLET GT SCH ×2 (09:02→21:12)
[2018-04-26] MEDS: QUETIAPINE FUMARATE 25MG TABLET PO SCH ×2 (09:03→21:12)
[2018-04-26] MEDS: MAGNESIUM/ALUMINUM HYDROXIDE/SIMETHICONE 30ML UDC PO PRN (09:03)
[2018-04-26] MEDS: AMLODIPINE 5MG TABLET PO SCH ×2 (09:03→21:12)
[2018-04-26] MEDS ORDERED: TOTAL PARENTERAL NUTRITION 1,300 ML IV SCH (10:00)
[2018-04-26] MEDS ORDERED: SORBITOL 70% SOLN 30ML PO NR (10:30)
[2018-04-26] MEDS: LEVETIRACETAM 500 MG in SODIUM CHLORIDE 0.9% 100 ML IV SCH ×2 (11:30→21:12)
[2018-04-26] MEDS: ACETAMINOPHEN 325MG TABLET PO PRN (12:55)
[2018-04-26] MEDS: CINACALCET HCL 30MG TABLET PO SCH (17:00)
[2018-04-26] MEDS ORDERED: MINERAL OIL ENEMA 133ML PR NR (17:30)
[2018-04-26] MEDS: CEFEPIME 1,000 MG in DEXTROSE 5% WATER 50 ML IV SCH (17:52)
[2018-04-26] MEDS ORDERED: SORBITOL 70% SOLN 30ML NG NR ×2 (18:30→21:30)
[2018-04-26] MEDS: TOTAL PARENTERAL NUTRITION 1,300 ML IV SCH (21:14)
[2018-04-27] VITALS (19 sets, daily range): BP systolic 93–200; BP diastolic 47–88
[2018-04-27] MEDS: IPRATROPIUM/ALBUTEROL 0.5-3(2.5)MG/3ML NEB HHN SCH ×4 (00:53→21:18)
[2018-04-27] MEDS: SUCRALFATE 1 G/10 ML UDC PO SCH ×5 (01:13→23:15)
[2018-04-27] MEDS: CLONIDINE 0.1MG TABLET PO PRN (03:12)
[2018-04-27] MEDS: METOCLOPRAMIDE HCL 10MG/2ML VIAL IV SCH ×4 (05:29→23:15)
[2018-04-27] MEDS: FOSPHENYTOIN SODIUM IJ SCH ×3 (05:29→21:10)
[2018-04-27 05:45] LABS: MEAN CORPUSCULAR HEMOGLOBIN 30.1 pg (28.0-32.0); MEAN CORPUSCULAR VOLUME 93.5 fL (80.0-94.0); MEAN PLATELET VOLUME 7.9 fl (7.4-10.4); PLATELET 354 x1000/uL (130-400); RED BLOOD CELL COUNT 3.31 mill/uL (4.7-6.1); RED CELL DISTRIBUTION WIDTH 20.8 % (11.6-14.6)
[2018-04-27] MEDS: INSULIN LISPRO 100 UNITS/ML SUBCUT SCH ×5 (06:00→23:28)
[2018-04-27] MEDS: BLOOD SUGAR DIAGNOSTIC STRIP TEST SCH ×5 (06:00→23:15)
[2018-04-27] MEDS ORDERED: POTASSIUM CHLORIDE 20MEQ TABLET SR PO NR ×4 (07:38→14:00)
[2018-04-27] MEDS: AMLODIPINE 5MG TABLET PO SCH ×2 (08:20→21:24)
[2018-04-27] MEDS: QUETIAPINE FUMARATE 25MG TABLET PO SCH ×2 (08:21→21:23)
[2018-04-27] MEDS: LOSARTAN POTASSIUM 50 MG TABLET GT SCH ×2 (08:21→21:24)
[2018-04-27] MEDS: PANTOPRAZOLE SODIUM 40 MG/VIAL IV SCH ×2 (08:21→17:38)
[2018-04-27] MEDS: METRONIDAZOLE 500 MG PREMIX 100 ML IV SCH ×2 (08:22→20:50)
[2018-04-27 09:30] LABS: PLATELET ESTIMATE NORMAL
[2018-04-27] MEDS: LEVETIRACETAM 500 MG in SODIUM CHLORIDE 0.9% 100 ML IV SCH ×2 (10:40→21:23)
[2018-04-27] MEDS ORDERED: MORPHINE SULFATE 4 MG/ML CPJ (NOT FOR IM USE) IV PRN (10:41)
[2018-04-27] MEDS ORDERED: SIMETHICONE 80MG TABLET CHEW PO PRN (11:15)
[2018-04-27] MEDS ORDERED: LACTULOSE 300 ML in WATER FOR IRRIGATION,STERILE 700 ML IR NR (14:00)
[2018-04-27] MEDS: CINACALCET HCL 30MG TABLET PO SCH (17:00)
[2018-04-27] MEDS: CEFEPIME 1,000 MG in DEXTROSE 5% WATER 50 ML IV SCH (17:39)
[2018-04-27] MEDS: HYDRALAZINE 20MG/ML VIAL IV PRN (20:50)
[2018-04-27] MEDS: TOTAL PARENTERAL NUTRITION 1,300 ML IV SCH (21:00)
[2018-04-27] MEDS ORDERED: TOTAL PARENTERAL NUTRITION 1,300 ML IV SCH (21:00)
[2018-04-27] MEDS: DIPHENHYDRAMINE 50MG/ML VIAL IV PRN (23:15)
[2018-04-28] VITALS (11 sets, daily range): BP systolic 117–152; BP diastolic 44–75
[2018-04-28] MEDS: IPRATROPIUM/ALBUTEROL 0.5-3(2.5)MG/3ML NEB HHN SCH ×4 (00:47→21:52)
[2018-04-28] MEDS: FOSPHENYTOIN SODIUM IJ SCH ×3 (05:06→21:17)
[2018-04-28] MEDS: SUCRALFATE 1 G/10 ML UDC PO SCH ×3 (05:07→17:58)
[2018-04-28] MEDS: BLOOD SUGAR DIAGNOSTIC STRIP TEST SCH ×3 (05:07→17:59)
[2018-04-28] MEDS: METOCLOPRAMIDE HCL 10MG/2ML VIAL IV SCH (05:07)
[2018-04-28] MEDS: INSULIN LISPRO 100 UNITS/ML SUBCUT SCH ×3 (06:00→18:00)
[2018-04-28 06:34] LABS: HEMOGLOBIN. 9.3 g/dL (14.0-18.0); MEAN CORPUSCULAR HEMOGLOBIN 30.5 pg (28.0-32.0); MEAN CORPUSCULAR VOLUME 94.5 fL (80.0-94.0); MEAN PLATELET VOLUME 7.8 fl (7.4-10.4); PLATELET 335 x1000/uL (130-400); RED BLOOD CELL COUNT 3.07 mill/uL (4.7-6.1); RED CELL DISTRIBUTION WIDTH 20.8 % (11.6-14.6)
[2018-04-28] MEDS: LOSARTAN POTASSIUM 50 MG TABLET GT SCH ×2 (08:03→21:16)
[2018-04-28] MEDS: AMLODIPINE 5MG TABLET PO SCH ×2 (08:03→21:16)
[2018-04-28] MEDS: PANTOPRAZOLE SODIUM 40 MG/VIAL IV SCH ×2 (09:00→17:58)
[2018-04-28 10:05] LABS: PLATELET ESTIMATE NORMAL
[2018-04-28] MEDS: LEVETIRACETAM 500 MG in SODIUM CHLORIDE 0.9% 100 ML IV SCH ×2 (12:03→21:58)
[2018-04-28] MEDS: QUETIAPINE FUMARATE 25MG TABLET PO SCH ×2 (12:03→21:15)
[2018-04-28 12:28] LABS: PHOSPHORUS 2.8 mg/dL (2.5-4.9)
[2018-04-28] MEDS: METRONIDAZOLE 500 MG PREMIX 100 ML IV SCH ×2 (13:03→21:19)
[2018-04-28 13:31] LABS: BG BASE EXCESS -0.8 mmol/L (-2.0-2.0); BG CARBOXYHEMOGLOBIN 0.3 % (0.5-1.5); BG DEOXYHEMOGLOBIN 5.6 % (0.0-5.0); BG FRACTION INSPIRED OXYGEN 28; BG HCO3 ACT 24.7 mmol/L (22.0-26.0); BG OXYGEN SATURATION 94.4 % (92.0-98.5); BG OXYHEMOGLOBIN 94.1 % (94.0-97.0); BG PCO2 44.5 mmHg (35.0-45.0); BG PH 7.362 (7.350-7.450); BG PO2 77.1 mmHg (75.0-100.0); BG SAMPLE SITE RIGHT RADIAL; BG TOTAL HEMOGLOBIN 10.6 g/dL (12.0-18.0); BG VENT MODE NASAL CANNULA
[2018-04-28] MEDS: CEFEPIME 1,000 MG in DEXTROSE 5% WATER 50 ML IV SCH (17:58)
[2018-04-28] MEDS: CINACALCET HCL 30MG TABLET PO SCH (17:58)
[2018-04-28] MEDS: CALCITONIN,SALMON, 3.7 ML NASAL SPRAY ONENSTRL SCH (17:59)
[2018-04-28] MEDS ORDERED: TOTAL PARENTERAL NUTRITION 1,300 ML IV SCH (21:00)
[2018-04-28] MEDS ORDERED: EPOETIN ALFA 4000UNITS/ML VIAL SUBCUT SCH (21:00)
[2018-04-28] MEDS: ACETAMINOPHEN 325MG TABLET PO PRN (21:16)
[2018-04-29] VITALS (13 sets, daily range): BP systolic 115–163; BP diastolic 53–77
[2018-04-29] MEDS: BLOOD SUGAR DIAGNOSTIC STRIP TEST SCH ×4 (00:23→18:19)
[2018-04-29] MEDS: SUCRALFATE 1 G/10 ML UDC PO SCH ×4 (00:25→18:19)
[2018-04-29] MEDS: IPRATROPIUM/ALBUTEROL 0.5-3(2.5)MG/3ML NEB HHN SCH ×4 (02:27→20:06)
[2018-04-29] MEDS: INSULIN LISPRO 100 UNITS/ML SUBCUT SCH ×4 (06:00→18:47)
[2018-04-29] MEDS: FOSPHENYTOIN SODIUM IJ SCH ×3 (07:01→22:40)
[2018-04-29] MEDS: LEVETIRACETAM 500 MG in SODIUM CHLORIDE 0.9% 100 ML IV SCH ×2 (09:30→21:29)
[2018-04-29] MEDS: METRONIDAZOLE 500 MG PREMIX 100 ML IV SCH ×2 (09:30→21:29)
[2018-04-29] MEDS: QUETIAPINE FUMARATE 25MG TABLET PO SCH ×2 (09:32→21:29)
[2018-04-29] MEDS: AMLODIPINE 5MG TABLET PO SCH ×2 (09:32→21:29)
[2018-04-29] MEDS: LOSARTAN POTASSIUM 50 MG TABLET GT SCH ×2 (09:33→21:28)
[2018-04-29] MEDS: DOCUSATE SODIUM SUGAR FREE 100MG/10ML UDC NG PRN (09:33)
[2018-04-29] MEDS: PANTOPRAZOLE SODIUM 40 MG/VIAL IV SCH ×2 (09:33→18:18)
[2018-04-29] MEDS: CALCITONIN,SALMON, 3.7 ML NASAL SPRAY ONENSTRL SCH (11:58)
[2018-04-29] MEDS: ACETAMINOPHEN 325MG TABLET PO PRN (11:58)
[2018-04-29 13:52] LABS: BG BASE EXCESS -3.9 mmol/L (-2.0-2.0); BG CARBOXYHEMOGLOBIN 0.3 % (0.5-1.5); BG DEOXYHEMOGLOBIN 5.3 % (0.0-5.0); BG FRACTION INSPIRED OXYGEN 21; BG HCO3 ACT 20.7 mmol/L (22.0-26.0); BG METHEMOGLOBIN 0.2 % (0.0-1.5); BG OXYGEN SATURATION 94.7 % (92.0-98.5); BG OXYHEMOGLOBIN 94.2 % (94.0-97.0); BG PCO2 36.1 mmHg (35.0-45.0); BG PH 7.377 (7.350-7.450); BG PO2 79.3 mmHg (75.0-100.0); BG SAMPLE SITE RIGHT BRACHIAL; BG TOTAL HEMOGLOBIN 10.3 g/dL (12.0-18.0); BG VENT MODE ROOM AIR
[2018-04-29 15:30] LABS: BASOPHILS % 1.8 % (0.0-2.0); EOSINOPHILS % 4.6 % (0.0-5.0); HEMATOCRIT. 30.5 % (42.0-52.0); HEMOGLOBIN. 9.8 g/dL (14.0-18.0); LYMPHOCYTES % 7.2 % (20.0-50.0); MEAN CORPUSCULAR HEMOGLOBIN 30.8 pg (28.0-32.0); MEAN PLATELET VOLUME 7.8 fl (7.4-10.4); MONOCYTES % 14.9 % (2.0-8.0); NEUTROPHILS % 71.5 % (40.0-76.0); PLATELET 340 x1000/uL (130-400); RED BLOOD CELL COUNT 3.18 mill/uL (4.7-6.1); RED CELL DISTRIBUTION WIDTH 21.1 % (11.6-14.6)
[2018-04-29] MEDS: CEFEPIME 1,000 MG in DEXTROSE 5% WATER 50 ML IV SCH (18:18)
[2018-04-29] MEDS: CINACALCET HCL 30MG TABLET PO SCH (18:18)
[2018-04-29] MEDS ORDERED: TOTAL PARENTERAL NUTRITION 1,300 ML IV SCH (21:00)
[2018-04-30] VITALS (12 sets, daily range): BP systolic 123–171; BP diastolic 56–87
[2018-04-30] MEDS: SUCRALFATE 1 G/10 ML UDC PO SCH ×5 (00:12→23:56)
[2018-04-30] MEDS: BLOOD SUGAR DIAGNOSTIC STRIP TEST SCH ×5 (00:17→20:48)
[2018-04-30] MEDS: INSULIN LISPRO 100 UNITS/ML SUBCUT SCH ×5 (00:22→20:48)
[2018-04-30] MEDS: IPRATROPIUM/ALBUTEROL 0.5-3(2.5)MG/3ML NEB HHN SCH ×4 (02:03→20:27)
[2018-04-30] MEDS: ACETAMINOPHEN 325MG TABLET PO PRN (04:21)
[2018-04-30] MEDS: ONDANSETRON HCL 4MG/2ML INJ IV PRN (04:21)
[2018-04-30] MEDS: FOSPHENYTOIN SODIUM IJ SCH ×3 (05:17→21:55)
[2018-04-30 07:14] LABS: BASOPHILS % 1.4 % (0.0-2.0); EOSINOPHILS % 3.7 % (0.0-5.0); HEMATOCRIT. 29.7 % (42.0-52.0); HEMOGLOBIN. 9.7 g/dL (14.0-18.0); LYMPHOCYTES % 9.3 % (20.0-50.0); MEAN CORPUSCULAR HEMOGLOBIN 30.8 pg (28.0-32.0); MEAN CORPUSCULAR VOLUME 94.7 fL (80.0-94.0); MONOCYTES % 14.3 % (2.0-8.0); NEUTROPHILS % 71.3 % (40.0-76.0); PLATELET 358 x1000/uL (130-400); RED BLOOD CELL COUNT 3.13 mill/uL (4.7-6.1)
[2018-04-30] MEDS: SEVELAMER CARBONATE 800 MG TABLET PO SCH ×3 (08:30→17:13)
[2018-04-30 08:48] LABS: CHLORIDE 103 mEq/L (98-107)
[2018-04-30] MEDS: LEVOTHYROXINE SODIUM 50MCG TABLET PO SCH (09:00)
[2018-04-30] MEDS: QUETIAPINE FUMARATE 25MG TABLET PO SCH ×2 (09:00→20:47)
[2018-04-30] MEDS: AMLODIPINE 5MG TABLET PO SCH ×2 (09:00→20:47)
[2018-04-30] MEDS: LOSARTAN POTASSIUM 50 MG TABLET GT SCH ×2 (09:00→20:47)
[2018-04-30] MEDS: PANTOPRAZOLE SODIUM 40 MG/VIAL IV SCH ×2 (09:03→17:12)
[2018-04-30] MEDS: CALCITONIN,SALMON, 3.7 ML NASAL SPRAY ONENSTRL SCH (09:04)
[2018-04-30] MEDS: LEVETIRACETAM 500 MG in SODIUM CHLORIDE 0.9% 100 ML IV SCH ×2 (10:06→20:58)
[2018-04-30] MEDS ORDERED: HEPARIN SODIUM 1,000 UNIT/1ML VIAL IV SCH (12:30)
[2018-04-30] MEDS: LACTULOSE 20G/30ML UDC PO SCH (13:45)
[2018-04-30] MEDS: CINACALCET HCL 30MG TABLET PO SCH (17:13)
[2018-04-30] MEDS ORDERED: LACTULOSE 300 ML in WATER FOR IRRIGATION,STERILE 700 ML IR SCH (18:00)
[2018-04-30] MEDS ORDERED: DEXTROSE 50% WATER 50ML SYRINGE IV PRN (19:30)
[2018-04-30] MEDS: EPOETIN ALFA 10000UNITS/ML VIAL SUBCUT SCH (20:59)
[2018-04-30] MEDS ORDERED: EPOETIN ALFA 10000UNITS/ML VIAL SUBCUT SCH (21:00)
[2018-04-30] MEDS ORDERED: LACTULOSE 300 ML in WATER FOR IRRIGATION,STERILE 700 ML PR SCH (22:00)
[2018-05-01] VITALS (15 sets, daily range): BP systolic 110–170; BP diastolic 55–74
[2018-05-01] MEDS: IPRATROPIUM/ALBUTEROL 0.5-3(2.5)MG/3ML NEB HHN SCH ×3 (01:33→11:00)
[2018-05-01] MEDS: SUCRALFATE 1 G/10 ML UDC PO SCH ×3 (06:31→17:56)
[2018-05-01] MEDS: FOSPHENYTOIN SODIUM IJ SCH ×3 (06:31→21:21)
[2018-05-01] MEDS: BLOOD SUGAR DIAGNOSTIC STRIP TEST SCH ×4 (08:00→21:00)
[2018-05-01] MEDS: INSULIN LISPRO 100 UNITS/ML SUBCUT SCH ×4 (08:00→21:00)
[2018-05-01] MEDS: LEVETIRACETAM 500 MG in SODIUM CHLORIDE 0.9% 100 ML IV SCH ×2 (09:36→21:12)
[2018-05-01] MEDS: LACTULOSE 20G/30ML UDC PO SCH (09:37)
[2018-05-01] MEDS: PANTOPRAZOLE SODIUM 40 MG/VIAL IV SCH ×2 (09:37→17:56)
[2018-05-01] MEDS: QUETIAPINE FUMARATE 25MG TABLET PO SCH ×2 (09:37→21:13)
[2018-05-01] MEDS: AMLODIPINE 5MG TABLET PO SCH ×2 (09:38→21:13)
[2018-05-01] MEDS: SEVELAMER CARBONATE 800 MG TABLET PO SCH (09:39)
[2018-05-01] MEDS: LOSARTAN POTASSIUM 50 MG TABLET GT SCH ×2 (09:39→21:31)
[2018-05-01] MEDS: LEVOTHYROXINE SODIUM 50MCG TABLET PO SCH (09:40)
[2018-05-01] MEDS: CALCITONIN,SALMON, 3.7 ML NASAL SPRAY ONENSTRL SCH (09:40)
[2018-05-01 11:41] LABS: PHOSPHORUS 1.3 mg/dL (2.5-4.9)
[2018-05-01] MEDS: POTASSIUM-SODIUM PHOSPHATE POWDER PACKET PO SCH ×2 (12:59→17:56)
[2018-05-01] MEDS: CINACALCET HCL 30MG TABLET PO SCH (17:56)
[2018-05-01] MEDS: TEMAZEPAM 15MG CAPSULE PO PRN (21:31)
[2018-05-01] MEDS: DOCUSATE SODIUM SUGAR FREE 100MG/10ML UDC NG PRN (21:34)
[2018-05-02] VITALS (12 sets, daily range): BP systolic 107–175; BP diastolic 51–80
[2018-05-02] MEDS: SUCRALFATE 1 G/10 ML UDC PO SCH ×4 (00:10→17:26)
[2018-05-02] MEDS: IPRATROPIUM/ALBUTEROL 0.5-3(2.5)MG/3ML NEB HHN SCH ×3 (01:33→20:48)
[2018-05-02] MEDS: FOSPHENYTOIN SODIUM IJ SCH ×3 (06:16→21:39)
[2018-05-02] MEDS: BLOOD SUGAR DIAGNOSTIC STRIP TEST SCH ×4 (07:33→21:39)
[2018-05-02] MEDS: INSULIN LISPRO 100 UNITS/ML SUBCUT SCH ×4 (08:00→21:00)
[2018-05-02] MEDS: LEVOTHYROXINE SODIUM 50MCG TABLET PO SCH (08:03)
[2018-05-02] MEDS: LOSARTAN POTASSIUM 50 MG TABLET GT SCH ×2 (08:18→21:38)
[2018-05-02] MEDS: AMLODIPINE 5MG TABLET PO SCH ×2 (08:18→21:38)
[2018-05-02] MEDS: POTASSIUM-SODIUM PHOSPHATE POWDER PACKET PO SCH ×2 (09:00→17:26)
[2018-05-02] MEDS: LACTULOSE 20G/30ML UDC PO SCH (14:05)
[2018-05-02] MEDS: QUETIAPINE FUMARATE 25MG TABLET PO SCH ×2 (14:05→21:38)
[2018-05-02] MEDS: LEVETIRACETAM 500 MG in SODIUM CHLORIDE 0.9% 100 ML IV SCH ×2 (14:05→21:37)
[2018-05-02] MEDS: PANTOPRAZOLE SODIUM 40 MG/VIAL IV SCH ×2 (14:05→17:26)
[2018-05-02] MEDS: CINACALCET HCL 30MG TABLET PO SCH (17:26)
[2018-05-02] MEDS: NA PHOS,M-B/NA PHOS,DI-BA ENEMA 118ML PR PRN (17:26)
[2018-05-02] MEDS: EPOETIN ALFA 10000UNITS/ML VIAL SUBCUT SCH (21:39)
[2018-05-02] MEDS: DOCUSATE SODIUM SUGAR FREE 100MG/10ML UDC NG PRN (21:54)
[2018-05-02] MEDS: TEMAZEPAM 15MG CAPSULE PO PRN (22:38)
[2018-05-03] VITALS (13 sets, daily range): BP systolic 108–164; BP diastolic 56–96
[2018-05-03] MEDS ORDERED: MORPHINE SULFATE 10 MG/ML CPJ IV PRN (00:45)
[2018-05-03] MEDS: ACETAMINOPHEN 325MG TABLET PO PRN (00:50)
[2018-05-03] MEDS: SUCRALFATE 1 G/10 ML UDC PO SCH ×4 (00:51→19:28)
[2018-05-03] MEDS: IPRATROPIUM/ALBUTEROL 0.5-3(2.5)MG/3ML NEB HHN SCH ×3 (01:01→20:22)
[2018-05-03] MEDS: FOSPHENYTOIN SODIUM IJ SCH ×2 (06:25→14:30)
[2018-05-03] MEDS: BLOOD SUGAR DIAGNOSTIC STRIP TEST SCH ×4 (07:30→21:15)
[2018-05-03] MEDS: INSULIN LISPRO 100 UNITS/ML SUBCUT SCH ×4 (08:00→21:00)
[2018-05-03] MEDS: LEVOTHYROXINE SODIUM 50MCG TABLET PO SCH (09:53)
[2018-05-03] MEDS: LEVETIRACETAM 500 MG in SODIUM CHLORIDE 0.9% 100 ML IV SCH ×2 (09:53→20:47)
[2018-05-03] MEDS: LOSARTAN POTASSIUM 50 MG TABLET GT SCH ×2 (09:53→20:14)
[2018-05-03] MEDS: PANTOPRAZOLE SODIUM 40 MG/VIAL IV SCH ×2 (09:54→17:30)
[2018-05-03] MEDS: LACTULOSE 20G/30ML UDC PO SCH (09:54)
[2018-05-03] MEDS: POTASSIUM-SODIUM PHOSPHATE POWDER PACKET PO SCH ×2 (09:54→17:30)
[2018-05-03] MEDS: AMLODIPINE 5MG TABLET PO SCH ×2 (09:55→20:15)
[2018-05-03] MEDS: QUETIAPINE FUMARATE 25MG TABLET PO SCH ×2 (09:55→20:14)
[2018-05-03] MEDS: NA PHOS,M-B/NA PHOS,DI-BA ENEMA 118ML PR PRN (14:31)
[2018-05-03] MEDS: CINACALCET HCL 30MG TABLET PO SCH (17:30)
[2018-05-03] MEDS: TEMAZEPAM 15MG CAPSULE PO PRN (20:14)
[2018-05-07] MEDS ORDERED: LEVOTHYROXINE SODIUM 75MCG TABLET PO SCH (07:30)
== END 2018-05-03 22:18 | DRG 870 ==
LOC: ER 13:54 → MICUNO 16:44 → ENRESERV 17:01 → MICUNO 19:20 → 5EST 04-27 07:00
PROVIDERS: ADMIT Internal Medicine Nephrology; ATTEND Internal Medicine
PROC: 5A1955Z Respiratory Ventilation, Greater than 96 Consecutive Hours (ICD-10-PCS; principal; 2018-04-14)
PROC: 0BH17EZ Insertion of Endotracheal Airway into Trachea, Via Natural or Artificial Opening (ICD-10-PCS; 2018-04-14)
PROC: 4A00X4Z Measurement of Central Nervous Electrical Activity, External Approach (ICD-10-PCS; 2018-04-15)
PROC: 06H033Z Insertion of Infusion Device into Inferior Vena Cava, Percutaneous Approach (ICD-10-PCS; 2018-04-15)
PROC: B549ZZA Ultrasonography of Inferior Vena Cava, Guidance (ICD-10-PCS; 2018-04-15)
PROC: 0BH17EZ Insertion of Endotracheal Airway into Trachea, Via Natural or Artificial Opening (ICD-10-PCS; 2018-04-21)
PROC: 5A1945Z Respiratory Ventilation, 24-96 Consecutive Hours (ICD-10-PCS; 2018-04-21)
PROC: 5A1D70Z Performance of Urinary Filtration, Intermittent, Less than 6 Hours Per Day (ICD-10-PCS; 2018-04-21)
PROC: 0DB68ZX Excision of Stomach, Via Natural or Artificial Opening Endoscopic, Diagnostic (ICD-10-PCS; 2018-04-25)
PROC: 5A09357 Assistance with Respiratory Ventilation, Less than 24 Consecutive Hours, Continuous Positive Airway Pressure (ICD-10-PCS; 2018-04-27)
PROC: 5A09357 Assistance with Respiratory Ventilation, Less than 24 Consecutive Hours, Continuous Positive Airway Pressure (ICD-10-PCS; 2018-04-30)
DX: A41.9 Sepsis, unspecified organism (principal); J96.00 Acute respiratory failure, unspecified whether with hypoxia or hypercapnia; J69.0 Pneumonitis due to inhalation of food and vomit; N18.6 End stage renal disease; K29.61 Other gastritis with bleeding; I63.81 Other cerebral infarction due to occlusion or stenosis of small artery; I13.2 Hypertensive heart and chronic kidney disease with heart failure and with stage 5 chronic kidney disease, or end stage renal disease; E72.20 Disorder of urea cycle metabolism, unspecified; E87.2 Acidosis; G40.411 Other generalized epilepsy and epileptic syndromes, intractable, with status epilepticus; I82.C11 Acute embolism and thrombosis of right internal jugular vein; J98.11 Atelectasis; K56.609 Unspecified intestinal obstruction, unspecified as to partial versus complete obstruction; K56.7 Ileus, unspecified; N25.81 Secondary hyperparathyroidism of renal origin; E46 Unspecified protein-calorie malnutrition; E11.22 Type 2 diabetes mellitus with diabetic chronic kidney disease; D63.1 Anemia in chronic kidney disease; D32.9 Benign neoplasm of meninges, unspecified; E11.51 Type 2 diabetes mellitus with diabetic peripheral angiopathy without gangrene; E78.1 Pure hyperglyceridemia; E83.39 Other disorders of phosphorus metabolism; E83.52 Hypercalcemia; E87.5 Hyperkalemia; I25.10 Atherosclerotic heart disease of native coronary artery without angina pectoris; I50.9 Heart failure, unspecified; J32.0 Chronic maxillary sinusitis; D47.3 Essential (hemorrhagic) thrombocythemia; K27.9 Peptic ulcer, site unspecified, unspecified as acute or chronic, without hemorrhage or perforation; G47.30 Sleep apnea, unspecified; K44.9 Diaphragmatic hernia without obstruction or gangrene; K57.30 Diverticulosis of large intestine without perforation or abscess without bleeding; Z86.011 Personal history of benign neoplasm of the brain; Z99.2 Dependence on renal dialysis; Z78.1 Physical restraint status; Z86.73 Personal history of transient ischemic attack (TIA), and cerebral infarction without residual deficits; Z88.0 Allergy status to penicillin; Z79.899 Other long term (current) drug therapy
CPT/HCPCS: 31500; 36415; 36569; 36600; 70551; 71045; 74018; 74176; 76700; 76937; 77075; 80048; 80061; 80185; 82040; 82140; 82310; 82375; 82607; 82728; 82746; 82805; 82962; 83540; 83550; 83605; 83735; 83970; 84100; 84134; 84145; 84439; 84443; 84478; 84484; 85014; 85018; 87070; 88305; 88312; 88313; 92610; 93005; 93306; 93970; 93971; 94003; 94640; 94660; 96365; 96375; 97112; 97162; 97164; 97166; 97530; 97535; 99291; A4216; A6261; C1725; C1769; C9113; G0482; J0330; J0360; J0692; J0885; J1200; J1642; J1644; J1650; J1815; J1953; J2060; J2250; J2270; J2405; J2501; J2704; J2765; J3010; J3480; J3490; J7030; J7040; J7042; J7050; J7060; J7608; J7620; Q2009

== ENCOUNTER 2018-05-03 21:40 | Inpatient (IN) | payer MEDICARE, MEDICAID ==
[~2018-05-03] VITALS: Ht 162.6 cm; Wt 78.0 kg
[~2018-05-03 21:40] MED LIST: AMLO10TA80 PO; AMLO5TAB88 MT; CLON1PAT10 TD; DIPH1TAB24 MT; ESOM40CA53 PO; FURO-151 PO; FURO40TA5 PO; LEVE500T19 PO; LORA1TAB PO; METO-539 PO; OMEP10SU2 PO; PIOG30TA70 PO; TRAM-529 PO
[2018-05-03 21:45] VITALS: BP 178/77
[2018-05-03] MEDS ORDERED: DIPHENHYDRAMINE 50MG CAPSULE PO PRN (23:15)
[2018-05-03] MEDS ORDERED: CLONIDINE 0.1MG TABLET PO PRN (23:15)
[2018-05-03] MEDS ORDERED: SIMETHICONE 80MG TABLET CHEW PO PRN (23:15)
[2018-05-03] MEDS ORDERED: IPRATROPIUM/ALBUTEROL 0.5-3(2.5)MG/3ML NEB HHN PRN (23:15)
[2018-05-03] MEDS ORDERED: BISACODYL 10MG SUPP PR PRN (23:15)
[2018-05-03] MEDS ORDERED: MAGNESIUM/ALUMINUM HYDROXIDE/SIMETHICONE 30ML UDC PO PRN (23:15)
[2018-05-03] MEDS ORDERED: DOCUSATE SODIUM SUGAR FREE 100MG/10ML UDC PO PRN (23:15)
[2018-05-03] MEDS ORDERED: ONDANSETRON HCL 4MG/2ML INJ IV PRN (23:15)
[2018-05-03] MEDS ORDERED: DEXTROSE 50% WATER 50ML SYRINGE IV PRN (23:15)
[2018-05-03] MEDS ORDERED: GUAIFENESIN 200MG/10ML SUGAR FREE UDC PO PRN (23:15)
[2018-05-03] MEDS ORDERED: NA PHOS,M-B/NA PHOS,DI-BA ENEMA 118ML PR PRN (23:15)
[2018-05-03 23:45] VITALS: BP 156/74
[2018-05-04] MEDS: SUCRALFATE 1 G/10 ML UDC PO SCH ×5 (00:11→23:57)
[2018-05-04] MEDS: PHENYTOIN 100 MG/4 ML UDC PO SCH ×4 (00:11→21:21)
[2018-05-04] MEDS: TEMAZEPAM 15MG CAPSULE PO PRN ×2 (01:18→21:21)
[2018-05-04] MEDS: IPRATROPIUM/ALBUTEROL 0.5-3(2.5)MG/3ML NEB HHN SCH ×4 (02:31→20:48)
[2018-05-04] MEDS: BLOOD SUGAR DIAGNOSTIC STRIP TEST SCH ×4 (06:27→21:22)
[2018-05-04] MEDS: LEVOTHYROXINE SODIUM 50MCG TABLET PO SCH (06:27)
[2018-05-04] MEDS: INSULIN LISPRO 100 UNITS/ML SUBCUT SCH ×4 (06:27→21:00)
[2018-05-04 08:00] VITALS: BP 172/75
[2018-05-04] MEDS: SEVELAMER CARBONATE 800 MG TABLET PO SCH ×3 (10:38→17:15)
[2018-05-04] MEDS: LACTULOSE 20G/30ML UDC PO SCH (10:38)
[2018-05-04] MEDS: POTASSIUM-SODIUM PHOSPHATE POWDER PACKET PO SCH ×2 (10:38→17:14)
[2018-05-04] MEDS: LEVETIRACETAM 500MG TABLET PO SCH ×2 (10:38→21:21)
[2018-05-04] MEDS: LOSARTAN POTASSIUM 50 MG TABLET PO SCH ×2 (10:39→21:21)
[2018-05-04] MEDS: PANTOPRAZOLE 40MG DR TABLET PO SCH ×2 (10:39→17:15)
[2018-05-04] MEDS: AMLODIPINE 5MG TABLET PO SCH ×2 (10:39→21:21)
[2018-05-04] MEDS: QUETIAPINE FUMARATE 25MG TABLET PO SCH ×2 (10:39→21:21)
[2018-05-04] MEDS: ENOXAPARIN 30MG/0.3ML SYR SUBCUT SCH (10:40)
[2018-05-04] MEDS: CINACALCET HCL 30MG TABLET PO SCH (17:16)
[2018-05-04 19:30] LABS: BASOPHILS % 1.2 % (0.0-2.0); EOSINOPHILS % 1.5 % (0.0-5.0); HEMATOCRIT. 32.3 % (42.0-52.0); HEMOGLOBIN. 10.6 g/dL (14.0-18.0); LYMPHOCYTES % 7.3 % (20.0-50.0); MEAN CORPUSCULAR HEMOGLOBIN 31.5 pg (28.0-32.0); MEAN CORPUSCULAR VOLUME 96.1 fL (80.0-94.0); MEAN PLATELET VOLUME 7.8 fl (7.4-10.4); MONOCYTES % 10.5 % (2.0-8.0); NEUTROPHILS % 79.5 % (40.0-76.0); PLATELET 352 x1000/uL (130-400); RED BLOOD CELL COUNT 3.36 mill/uL (4.7-6.1); RED CELL DISTRIBUTION WIDTH 20.4 % (11.6-14.6)
[2018-05-04 20:00] VITALS: BP 154/53
[2018-05-05] MEDS: IPRATROPIUM/ALBUTEROL 0.5-3(2.5)MG/3ML NEB HHN SCH ×4 (01:52→21:18)
[2018-05-05] MEDS: SUCRALFATE 1 G/10 ML UDC PO SCH ×4 (06:01→23:08)
[2018-05-05] MEDS: PHENYTOIN 100 MG/4 ML UDC PO SCH ×3 (06:01→21:30)
[2018-05-05] MEDS: LEVOTHYROXINE SODIUM 50MCG TABLET PO SCH (06:02)
[2018-05-05] MEDS: BLOOD SUGAR DIAGNOSTIC STRIP TEST SCH ×4 (06:10→21:10)
[2018-05-05 07:06] LABS: BASOPHILS % 1.3 % (0.0-2.0); EOSINOPHILS % 3.2 % (0.0-5.0); HEMATOCRIT. 31.8 % (42.0-52.0); HEMOGLOBIN. 10.3 g/dL (14.0-18.0); LYMPHOCYTES % 10.1 % (20.0-50.0); MEAN CORPUSCULAR VOLUME 96.1 fL (80.0-94.0); MEAN PLATELET VOLUME 8.2 fl (7.4-10.4); MONOCYTES % 10.4 % (2.0-8.0); PLATELET 352 x1000/uL (130-400); RED BLOOD CELL COUNT 3.31 mill/uL (4.7-6.1); RED CELL DISTRIBUTION WIDTH 20.7 % (11.6-14.6)
[2018-05-05 08:00] VITALS: BP 155/70
[2018-05-05] MEDS: PANTOPRAZOLE 40MG DR TABLET PO SCH ×2 (08:36→18:00)
[2018-05-05] MEDS: POTASSIUM-SODIUM PHOSPHATE POWDER PACKET PO SCH ×2 (08:36→17:53)
[2018-05-05] MEDS: ENOXAPARIN 30MG/0.3ML SYR SUBCUT SCH (08:36)
[2018-05-05] MEDS: LACTULOSE 20G/30ML UDC PO SCH (08:36)
[2018-05-05] MEDS: SEVELAMER CARBONATE 800 MG TABLET PO SCH ×3 (08:36→17:53)
[2018-05-05] MEDS: AMLODIPINE 10MG TABLET PO SCH (08:37)
[2018-05-05] MEDS: LEVETIRACETAM 500MG TABLET PO SCH ×2 (08:37→20:12)
[2018-05-05] MEDS: QUETIAPINE FUMARATE 25MG TABLET PO SCH ×2 (08:37→20:12)
[2018-05-05] MEDS: LOSARTAN POTASSIUM 50 MG TABLET PO SCH ×2 (08:37→20:12)
[2018-05-05] MEDS: HYDRALAZINE HCL 50MG TABLET PO SCH ×4 (08:38→20:12)
[2018-05-05] MEDS: CINACALCET HCL 30MG TABLET PO SCH (17:53)
[2018-05-05 20:00] VITALS: BP 172/66
[2018-05-05] MEDS ORDERED: EPOETIN ALFA 10000UNITS/ML VIAL SUBCUT SCH (21:00)
[2018-05-05] MEDS: INSULIN LISPRO 100 UNITS/ML SUBCUT SCH (21:00)
[2018-05-05] MEDS ORDERED: EPOETIN ALFA 4000UNITS/ML VIAL SUBCUT SCH (21:00)
[2018-05-05] MEDS: TEMAZEPAM 15MG CAPSULE PO PRN (21:30)
[2018-05-05 22:05] VITALS: BP 145/68
[2018-05-06] MEDS: IPRATROPIUM/ALBUTEROL 0.5-3(2.5)MG/3ML NEB HHN SCH
[2018-05-06] MEDS: BLOOD SUGAR DIAGNOSTIC STRIP TEST SCH ×4 (06:40→21:32)
[2018-05-06] MEDS: SUCRALFATE 1 G/10 ML UDC PO SCH ×3 (06:41→17:01)
[2018-05-06] MEDS: INSULIN LISPRO 100 UNITS/ML SUBCUT SCH ×4 (06:41→21:00)
[2018-05-06] MEDS: LEVOTHYROXINE SODIUM 50MCG TABLET PO SCH (06:41)
[2018-05-06] MEDS: PHENYTOIN 100 MG/4 ML UDC PO SCH ×3 (06:41→21:31)
[2018-05-06 08:00] VITALS: BP 162/71
[2018-05-06] MEDS: LACTULOSE 20G/30ML UDC PO SCH (09:00)
[2018-05-06] MEDS: SEVELAMER CARBONATE 800 MG TABLET PO SCH ×3 (09:31→16:56)
[2018-05-06] MEDS: HYDRALAZINE HCL 50MG TABLET PO SCH ×4 (09:32→21:31)
[2018-05-06] MEDS: AMLODIPINE 10MG TABLET PO SCH (09:32)
[2018-05-06] MEDS: PANTOPRAZOLE 40MG DR TABLET PO SCH ×2 (09:32→16:56)
[2018-05-06] MEDS: POTASSIUM-SODIUM PHOSPHATE POWDER PACKET PO SCH ×2 (09:33→16:56)
[2018-05-06] MEDS: LEVETIRACETAM 500MG TABLET PO SCH ×2 (09:33→21:31)
[2018-05-06] MEDS: QUETIAPINE FUMARATE 25MG TABLET PO SCH ×2 (09:33→21:32)
[2018-05-06] MEDS: ENOXAPARIN 30MG/0.3ML SYR SUBCUT SCH (09:34)
[2018-05-06] MEDS: LOSARTAN POTASSIUM 50 MG TABLET PO SCH ×2 (09:34→21:31)
[2018-05-06] MEDS: CINACALCET HCL 30MG TABLET PO SCH (16:56)
[2018-05-06] MEDS ORDERED: LACTULOSE 20G/30ML UDC PO PRN (19:15)
[2018-05-06 20:00] VITALS: BP 139/63
[2018-05-06] MEDS: TEMAZEPAM 15MG CAPSULE PO PRN (23:53)
[2018-05-07] MEDS: SUCRALFATE 1 G/10 ML UDC PO SCH ×4 (00:09→17:21)
[2018-05-07] MEDS: LEVOTHYROXINE SODIUM 50MCG TABLET PO SCH (06:42)
[2018-05-07] MEDS: PHENYTOIN 100 MG/4 ML UDC PO SCH ×3 (06:42→22:07)
[2018-05-07] MEDS: BLOOD SUGAR DIAGNOSTIC STRIP TEST SCH ×4 (06:51→21:00)
[2018-05-07 08:41] VITALS: BP 169/77
[2018-05-07] MEDS: INSULIN LISPRO 100 UNITS/ML SUBCUT SCH ×4 (09:00→21:00)
[2018-05-07] MEDS: PANTOPRAZOLE 40MG DR TABLET PO SCH ×2 (09:02→17:21)
[2018-05-07] MEDS: AMLODIPINE 10MG TABLET PO SCH (09:02)
[2018-05-07] MEDS: LOSARTAN POTASSIUM 50 MG TABLET PO SCH ×2 (09:02→22:08)
[2018-05-07] MEDS: SEVELAMER CARBONATE 800 MG TABLET PO SCH ×3 (09:02→17:21)
[2018-05-07] MEDS: LEVETIRACETAM 500MG TABLET PO SCH ×2 (09:02→22:07)
[2018-05-07] MEDS: ENOXAPARIN 30MG/0.3ML SYR SUBCUT SCH (09:03)
[2018-05-07] MEDS: QUETIAPINE FUMARATE 25MG TABLET PO SCH ×2 (09:03→22:08)
[2018-05-07] MEDS: HYDRALAZINE HCL 50MG TABLET PO SCH ×4 (09:03→22:07)
[2018-05-07] MEDS: POTASSIUM-SODIUM PHOSPHATE POWDER PACKET PO SCH ×2 (09:04→17:21)
[2018-05-07] MEDS: CINACALCET HCL 30MG TABLET PO SCH (17:22)
[2018-05-07 20:00] VITALS: BP 127/72
[2018-05-07] MEDS: TEMAZEPAM 15MG CAPSULE PO PRN (22:07)
[2018-05-08] MEDS: SUCRALFATE 1 G/10 ML UDC PO SCH ×5 (06:12→23:15)
[2018-05-08] MEDS: BLOOD SUGAR DIAGNOSTIC STRIP TEST SCH ×4 (06:12→21:10)
[2018-05-08] MEDS: PHENYTOIN 100 MG/4 ML UDC PO SCH ×3 (06:12→21:24)
[2018-05-08] MEDS: LEVOTHYROXINE SODIUM 50MCG TABLET PO SCH (06:12)
[2018-05-08 08:00] VITALS: BP_SYST 119; BP_SYST 125; BP_DIAS 54; BP_DIAS 64
[2018-05-08] MEDS: HYDRALAZINE HCL 50MG TABLET PO SCH ×4 (08:48→21:23)
[2018-05-08] MEDS: LEVETIRACETAM 500MG TABLET PO SCH ×2 (08:48→21:23)
[2018-05-08] MEDS: SEVELAMER CARBONATE 800 MG TABLET PO SCH ×3 (08:48→17:44)
[2018-05-08] MEDS: PANTOPRAZOLE 40MG DR TABLET PO SCH ×2 (08:49→17:45)
[2018-05-08] MEDS: AMLODIPINE 10MG TABLET PO SCH (08:49)
[2018-05-08] MEDS: QUETIAPINE FUMARATE 25MG TABLET PO SCH ×2 (08:49→21:23)
[2018-05-08] MEDS: LOSARTAN POTASSIUM 50 MG TABLET PO SCH ×2 (08:50→21:23)
[2018-05-08] MEDS: INSULIN LISPRO 100 UNITS/ML SUBCUT SCH ×4 (08:54→21:00)
[2018-05-08] MEDS: POTASSIUM-SODIUM PHOSPHATE POWDER PACKET PO SCH ×2 (11:33→17:45)
[2018-05-08] MEDS: ENOXAPARIN 30MG/0.3ML SYR SUBCUT SCH (11:34)
[2018-05-08 13:14] VITALS: BP 127/61
[2018-05-08] MEDS: ACETAMINOPHEN 325MG TABLET PO PRN (14:23)
[2018-05-08 17:27] VITALS: BP 136/61
[2018-05-08] MEDS: CINACALCET HCL 30MG TABLET PO SCH (17:44)
[2018-05-08 20:00] VITALS: BP 135/66
[2018-05-08] MEDS: TEMAZEPAM 15MG CAPSULE PO PRN (21:23)
[2018-05-09] MEDS: BLOOD SUGAR DIAGNOSTIC STRIP TEST SCH ×4 (06:26→20:10)
[2018-05-09] MEDS: LEVOTHYROXINE SODIUM 50MCG TABLET PO SCH (06:26)
[2018-05-09] MEDS: SUCRALFATE 1 G/10 ML UDC PO SCH ×4 (06:26→20:06)
[2018-05-09] MEDS: PHENYTOIN 100 MG/4 ML UDC PO SCH ×3 (06:26→20:10)
[2018-05-09] MEDS: INSULIN LISPRO 100 UNITS/ML SUBCUT SCH ×4 (06:27→20:15)
[2018-05-09 08:00] VITALS: BP 108/59
[2018-05-09] MEDS: AMLODIPINE 10MG TABLET PO SCH (08:46)
[2018-05-09] MEDS: HYDRALAZINE HCL 50MG TABLET PO SCH ×4 (08:46→20:07)
[2018-05-09] MEDS: LOSARTAN POTASSIUM 50 MG TABLET PO SCH ×2 (08:46→20:07)
[2018-05-09] MEDS: ENOXAPARIN 30MG/0.3ML SYR SUBCUT SCH (08:47)
[2018-05-09] MEDS: QUETIAPINE FUMARATE 25MG TABLET PO SCH ×2 (09:05→20:07)
[2018-05-09] MEDS: PANTOPRAZOLE 40MG DR TABLET PO SCH ×2 (09:05→17:33)
[2018-05-09] MEDS: LEVETIRACETAM 500MG TABLET PO SCH ×2 (09:05→20:09)
[2018-05-09] MEDS: SEVELAMER CARBONATE 800 MG TABLET PO SCH ×3 (09:05→17:33)
[2018-05-09] MEDS: POTASSIUM-SODIUM PHOSPHATE POWDER PACKET PO SCH ×2 (09:06→17:33)
[2018-05-09] MEDS: CINACALCET HCL 30MG TABLET PO SCH (17:33)
[2018-05-09 20:00] VITALS: BP 142/65
[2018-05-10] MEDS: ACETAMINOPHEN 325MG TABLET PO PRN (03:50)
[2018-05-10] MEDS: SUCRALFATE 1 G/10 ML UDC PO SCH ×4 (05:55→23:00)
[2018-05-10] MEDS: PHENYTOIN 100 MG/4 ML UDC PO SCH ×3 (05:56→21:18)
[2018-05-10] MEDS: BLOOD SUGAR DIAGNOSTIC STRIP TEST SCH ×4 (05:56→21:00)
[2018-05-10 08:10] VITALS: BP 148/68
[2018-05-10] MEDS: QUETIAPINE FUMARATE 25MG TABLET PO SCH ×2 (08:12→23:00)
[2018-05-10] MEDS: LOSARTAN POTASSIUM 50 MG TABLET PO SCH ×2 (08:12→21:05)
[2018-05-10] MEDS: SEVELAMER CARBONATE 800 MG TABLET PO SCH ×2 (08:13→13:50)
[2018-05-10] MEDS: HYDRALAZINE HCL 50MG TABLET PO SCH ×4 (08:13→21:05)
[2018-05-10] MEDS: AMLODIPINE 10MG TABLET PO SCH (08:13)
[2018-05-10] MEDS: LEVETIRACETAM 500MG TABLET PO SCH ×2 (08:13→21:04)
[2018-05-10] MEDS: PANTOPRAZOLE 40MG DR TABLET PO SCH ×2 (08:14→17:44)
[2018-05-10] MEDS: ENOXAPARIN 30MG/0.3ML SYR SUBCUT SCH (08:14)
[2018-05-10] MEDS: POTASSIUM-SODIUM PHOSPHATE POWDER PACKET PO SCH ×2 (08:14→17:44)
[2018-05-10] MEDS: INSULIN LISPRO 100 UNITS/ML SUBCUT SCH ×2 (17:00→21:00)
[2018-05-10] MEDS: CINACALCET HCL 30MG TABLET PO SCH (17:54)
[2018-05-10 20:00] VITALS: BP 150/70
[2018-05-11] MEDS: SUCRALFATE 1 G/10 ML UDC PO SCH ×3 (05:44→17:11)
[2018-05-11] MEDS: PHENYTOIN 100 MG/4 ML UDC PO SCH ×3 (05:44→21:44)
[2018-05-11] MEDS: BLOOD SUGAR DIAGNOSTIC STRIP TEST SCH ×4 (05:57→21:13)
[2018-05-11] MEDS: POTASSIUM-SODIUM PHOSPHATE POWDER PACKET PO SCH ×2 (08:14→17:11)
[2018-05-11] MEDS: LEVETIRACETAM 500MG TABLET PO SCH ×2 (08:14→21:06)
[2018-05-11] MEDS: AMLODIPINE 10MG TABLET PO SCH (08:14)
[2018-05-11] MEDS: QUETIAPINE FUMARATE 25MG TABLET PO SCH ×2 (08:15→21:07)
[2018-05-11] MEDS: HYDRALAZINE HCL 50MG TABLET PO SCH ×4 (08:15→21:06)
[2018-05-11] MEDS: PANTOPRAZOLE 40MG DR TABLET PO SCH ×2 (08:15→17:11)
[2018-05-11] MEDS: LOSARTAN POTASSIUM 50 MG TABLET PO SCH ×2 (08:15→21:06)
[2018-05-11] MEDS: ENOXAPARIN 30MG/0.3ML SYR SUBCUT SCH (08:16)
[2018-05-11] MEDS ORDERED: LACTULOSE 20G/30ML UDC PO PRN (11:15)
[2018-05-11] MEDS ORDERED: LACTULOSE 20G/30ML UDC PO SCH (11:15)
[2018-05-11] MEDS: INSULIN LISPRO 100 UNITS/ML SUBCUT SCH ×3 (13:00→21:13)
[2018-05-11 13:08] VITALS: BP 156/69
[2018-05-11] MEDS: CINACALCET HCL 30MG TABLET PO SCH (17:11)
[2018-05-11 20:00] VITALS: BP 139/62
[2018-05-12] MEDS: SUCRALFATE 1 G/10 ML UDC PO SCH ×5 (00:06→23:42)
[2018-05-12] MEDS: BLOOD SUGAR DIAGNOSTIC STRIP TEST SCH ×4 (05:50→21:20)
[2018-05-12] MEDS: PHENYTOIN 100 MG/4 ML UDC PO SCH ×3 (05:52→21:19)
[2018-05-12 08:11] VITALS: BP 137/71
[2018-05-12] MEDS: ENOXAPARIN 30MG/0.3ML SYR SUBCUT SCH (08:19)
[2018-05-12] MEDS: POTASSIUM-SODIUM PHOSPHATE POWDER PACKET PO SCH ×2 (08:19→18:16)
[2018-05-12] MEDS: LEVETIRACETAM 500MG TABLET PO SCH ×2 (08:20→21:19)
[2018-05-12] MEDS: QUETIAPINE FUMARATE 25MG TABLET PO SCH ×2 (08:20→21:19)
[2018-05-12] MEDS: HYDRALAZINE HCL 50MG TABLET PO SCH ×5 (08:20→21:19)
[2018-05-12] MEDS: PANTOPRAZOLE 40MG DR TABLET PO SCH ×2 (08:20→18:17)
[2018-05-12] MEDS: LOSARTAN POTASSIUM 50 MG TABLET PO SCH ×2 (08:20→23:42)
[2018-05-12] MEDS: AMLODIPINE 10MG TABLET PO SCH (08:20)
[2018-05-12] MEDS: CALCIUM ACETATE 667MG CAPSULE PO SCH ×3 (08:23→18:19)
[2018-05-12] MEDS: ACETAMINOPHEN 325MG TABLET PO PRN (09:45)
[2018-05-12] MEDS: INSULIN LISPRO 100 UNITS/ML SUBCUT SCH ×2 (17:00→21:00)
[2018-05-12] MEDS: CINACALCET HCL 30MG TABLET PO SCH (18:16)
[2018-05-12 20:00] VITALS: BP 112/62
[2018-05-12] MEDS ORDERED: EPOETIN ALFA 4000UNITS/ML VIAL SUBCUT SCH (21:00)
[2018-05-13] MEDS: SUCRALFATE 1 G/10 ML UDC PO SCH ×4 (06:15→23:26)
[2018-05-13] MEDS: INSULIN LISPRO 100 UNITS/ML SUBCUT SCH ×4 (06:15→21:00)
[2018-05-13] MEDS: BLOOD SUGAR DIAGNOSTIC STRIP TEST SCH ×4 (06:15→21:04)
[2018-05-13] MEDS: PHENYTOIN 100 MG/4 ML UDC PO SCH ×3 (06:15→22:00)
[2018-05-13 08:04] VITALS: BP 145/63
[2018-05-13] MEDS: CALCIUM ACETATE 667MG CAPSULE PO SCH ×3 (10:07→17:52)
[2018-05-13] MEDS: AMLODIPINE 10MG TABLET PO SCH (10:07)
[2018-05-13] MEDS: ENOXAPARIN 30MG/0.3ML SYR SUBCUT SCH (10:07)
[2018-05-13] MEDS: PANTOPRAZOLE 40MG DR TABLET PO SCH ×2 (10:07→17:52)
[2018-05-13] MEDS: POTASSIUM-SODIUM PHOSPHATE POWDER PACKET PO SCH ×2 (10:07→17:52)
[2018-05-13] MEDS: LEVETIRACETAM 500MG TABLET PO SCH ×2 (10:07→21:03)
[2018-05-13] MEDS: HYDRALAZINE HCL 50MG TABLET PO SCH ×4 (10:08→21:04)
[2018-05-13] MEDS: LOSARTAN POTASSIUM 50 MG TABLET PO SCH ×3 (10:08→22:00)
[2018-05-13] MEDS: QUETIAPINE FUMARATE 25MG TABLET PO SCH ×2 (10:08→21:04)
[2018-05-13] MEDS: CINACALCET HCL 30MG TABLET PO SCH (17:52)
[2018-05-13 20:00] VITALS: BP 147/70
[2018-05-13 22:00] VITALS: BP 106/64
[2018-05-14] MEDS: PHENYTOIN 100 MG/4 ML UDC PO SCH ×3 (05:46→23:16)
[2018-05-14] MEDS: SUCRALFATE 1 G/10 ML UDC PO SCH ×4 (05:46→23:16)
[2018-05-14] MEDS: BLOOD SUGAR DIAGNOSTIC STRIP TEST SCH ×4 (05:46→21:34)
[2018-05-14] MEDS: INSULIN LISPRO 100 UNITS/ML SUBCUT SCH ×4 (05:50→21:00)
[2018-05-14 07:55] VITALS: BP 151/82
[2018-05-14 07:59] VITALS: BP 127/70
[2018-05-14] MEDS: ENOXAPARIN 30MG/0.3ML SYR SUBCUT SCH (08:28)
[2018-05-14] MEDS: POTASSIUM-SODIUM PHOSPHATE POWDER PACKET PO SCH ×2 (08:28→17:30)
[2018-05-14] MEDS: HYDRALAZINE HCL 50MG TABLET PO SCH ×4 (08:29→23:15)
[2018-05-14] MEDS: CALCIUM ACETATE 667MG CAPSULE PO SCH ×3 (08:29→17:30)
[2018-05-14] MEDS: LEVETIRACETAM 500MG TABLET PO SCH ×2 (08:29→23:15)
[2018-05-14] MEDS: PANTOPRAZOLE 40MG DR TABLET PO SCH ×2 (08:29→17:31)
[2018-05-14] MEDS: QUETIAPINE FUMARATE 25MG TABLET PO SCH ×2 (08:29→23:16)
[2018-05-14] MEDS: LOSARTAN POTASSIUM 50 MG TABLET PO SCH ×2 (08:30→23:15)
[2018-05-14] MEDS: AMLODIPINE 10MG TABLET PO SCH (08:30)
[2018-05-14 10:23] LABS: HEMATOCRIT. 36.8 % (42.0-52.0); HEMOGLOBIN. 11.7 g/dL (14.0-18.0); MEAN CORPUSCULAR HEMOGLOBIN 30.6 pg (28.0-32.0); MEAN CORPUSCULAR VOLUME 95.8 fL (80.0-94.0); MEAN PLATELET VOLUME 9.4 fl (7.4-10.4); PLATELET 313 x1000/uL (130-400); RED BLOOD CELL COUNT 3.84 mill/uL (4.7-6.1); RED CELL DISTRIBUTION WIDTH 17.4 % (11.6-14.6)
[2018-05-14 14:01] LABS: PLATELET ESTIMATE NORMAL
[2018-05-14] MEDS: CINACALCET HCL 30MG TABLET PO SCH (17:30)
[2018-05-14 20:09] VITALS: BP 144/72
[2018-05-15] MEDS: SUCRALFATE 1 G/10 ML UDC PO SCH ×2 (06:08→13:33)
[2018-05-15] MEDS: PHENYTOIN 100 MG/4 ML UDC PO SCH ×2 (06:08→13:35)
[2018-05-15] MEDS: BLOOD SUGAR DIAGNOSTIC STRIP TEST SCH ×3 (06:12→16:46)
[2018-05-15] MEDS: INSULIN LISPRO 100 UNITS/ML SUBCUT SCH ×3 (06:12→16:46)
[2018-05-15 08:00] VITALS: BP 161/76
[2018-05-15] MEDS: QUETIAPINE FUMARATE 25MG TABLET PO SCH (09:36)
[2018-05-15] MEDS: LEVETIRACETAM 500MG TABLET PO SCH (09:36)
[2018-05-15] MEDS: CALCIUM ACETATE 667MG CAPSULE PO SCH ×3 (09:36→16:45)
[2018-05-15] MEDS: AMLODIPINE 10MG TABLET PO SCH (09:37)
[2018-05-15] MEDS: HYDRALAZINE HCL 50MG TABLET PO SCH ×3 (09:37→16:46)
[2018-05-15] MEDS: POTASSIUM-SODIUM PHOSPHATE POWDER PACKET PO SCH ×2 (09:38→16:45)
[2018-05-15] MEDS: PANTOPRAZOLE 40MG DR TABLET PO SCH ×2 (09:38→16:45)
[2018-05-15] MEDS: LOSARTAN POTASSIUM 50 MG TABLET PO SCH (09:38)
[2018-05-15] MEDS: ENOXAPARIN 30MG/0.3ML SYR SUBCUT SCH (09:38)
[2018-05-15 11:03] VITALS: BP 146/78
[2018-05-15 13:53] VITALS: BP 146/64
[2018-05-15] MEDS: CINACALCET HCL 30MG TABLET PO SCH (16:45)
== END 2018-05-15 17:35 | disposition home health service (06) | DRG 947 ==
PROVIDERS: ADMIT Psychiatry & Neurology Neurology; ATTEND Internal Medicine
PROC: 5A1D70Z Performance of Urinary Filtration, Intermittent, Less than 6 Hours Per Day (ICD-10-PCS; principal; 2018-05-05)
PROC: 5A1D70Z Performance of Urinary Filtration, Intermittent, Less than 6 Hours Per Day (ICD-10-PCS; 2018-05-07)
PROC: 5A1D70Z Performance of Urinary Filtration, Intermittent, Less than 6 Hours Per Day (ICD-10-PCS; 2018-05-09)
PROC: 5A1D70Z Performance of Urinary Filtration, Intermittent, Less than 6 Hours Per Day (ICD-10-PCS; 2018-05-12)
PROC: 5A1D70Z Performance of Urinary Filtration, Intermittent, Less than 6 Hours Per Day (ICD-10-PCS; 2018-05-14)
DX: R53.81 Other malaise (principal); J96.00 Acute respiratory failure, unspecified whether with hypoxia or hypercapnia; J69.0 Pneumonitis due to inhalation of food and vomit; N18.6 End stage renal disease; A41.9 Sepsis, unspecified organism; I63.9 Cerebral infarction, unspecified; G93.49 Other encephalopathy; I12.0 Hypertensive chronic kidney disease with stage 5 chronic kidney disease or end stage renal disease; K92.2 Gastrointestinal hemorrhage, unspecified; G40.409 Other generalized epilepsy and epileptic syndromes, not intractable, without status epilepticus; E11.22 Type 2 diabetes mellitus with diabetic chronic kidney disease; E78.1 Pure hyperglyceridemia; K21.9 Gastro-esophageal reflux disease without esophagitis; Z88.0 Allergy status to penicillin; Z88.2 Allergy status to sulfonamides; Z88.8 Allergy status to other drugs, medicaments and biological substances; K76.0 Fatty (change of) liver, not elsewhere classified; Z87.01 Personal history of pneumonia (recurrent); D32.0 Benign neoplasm of cerebral meninges; F06.31 Mood disorder due to known physiological condition with depressive features; Z79.899 Other long term (current) drug therapy; Z82.49 Family history of ischemic heart disease and other diseases of the circulatory system; Z83.3 Family history of diabetes mellitus; Z86.73 Personal history of transient ischemic attack (TIA), and cerebral infarction without residual deficits; Z99.2 Dependence on renal dialysis
CPT/HCPCS: 36415; 74018; 80048; 80051; 82040; 82140; 82310; 82962; 83970; 84443; 92523; 92610; 93970; 94640; 97110; 97112; 97116; 97163; 97166; 97530; 97535; A6261; G0515; J1650; J1815; J2405; J7620; Q0163

== ENCOUNTER 2019-01-26 18:01 | Inpatient (IN) | payer MEDICARE, MEDICAID ==
[~2019-01-26] VITALS: Ht 182.9 cm; Wt 79.4 kg
[2019-01-26] MEDS ORDERED: LABETALOL 5MG/ML SYR 20 MG/4 ML SYRINGE IV ONE (18:15)
[2019-01-26] MEDS ORDERED: ONDANSETRON HCL 4MG/2ML INJ IV ONE (18:15)
[2019-01-26 18:30] LABS: EOSINOPHILS % 1.4 % (0.0-5.0); HEMATOCRIT. 28.3 % (42.0-52.0); HEMOGLOBIN. 9.2 g/dL (14.0-18.0); LYMPHOCYTES % 11.4 % (20.0-50.0); MEAN CORPUSCULAR VOLUME 91.8 fL (80.0-94.0); MEAN PLATELET VOLUME 7.2 fl (7.4-10.4); MONOCYTES % 9.5 % (2.0-8.0); NEUTROPHILS % 76.7 % (40.0-76.0); PLATELET 436 x1000/uL (130-400); RED BLOOD CELL COUNT 3.08 mill/uL (4.7-6.1); RED CELL DISTRIBUTION WIDTH 19.6 % (11.6-14.6)
[2019-01-26] MEDS ORDERED: LEVETIRACETAM 1000MG/100ML 100 ML IV ONE (18:30)
[2019-01-26] MEDS ORDERED: LORAZEPAM 2MG/ML CPJ IV ONE (18:30)
[2019-01-26] MEDS ORDERED: LORAZEPAM 2MG/ML CPJ ONE (18:32)
[2019-01-26 18:34] LABS: CHLORIDE 92 mEq/L (98-107); PROTHROMBIN TIME 10.4 sec (9.6-11.0)
[2019-01-26 18:38] LABS: ETHANOL BLOOD < 10 mg/dL
[2019-01-26 18:41] LABS: LDL CHOLESTEROL 55 mg/dL (5-100)
[2019-01-26] MEDS ORDERED: SODIUM CHLORIDE 0.9% 10ML VIAL ONE (18:43)
[2019-01-26] MEDS ORDERED: VECURONIUM BROMIDE 10 MG/VIAL IV ONE (18:43)
[2019-01-26] MEDS ORDERED: ETOMIDATE 2MG/ML 10ML VIAL IV ONE ×2 (18:43→19:00)
[2019-01-26] MEDS ORDERED: NICARDIPINE 40MG/200ML PREMIX 200 ML IV STA (18:49)
[2019-01-26] MEDS ORDERED: PROPOFOL 200MG/20ML VIAL IV ONE (19:00)
[2019-01-26] MEDS ORDERED: PROPOFOL 10MG/ML 100ML 100 ML IV SCH (19:00)
[2019-01-26] MEDS ORDERED: IPRATROPIUM/ALBUTEROL 0.5-3(2.5)MG/3ML NEB HHN PRN (19:45)
[2019-01-26 19:52] LABS: BG BASE EXCESS 3.8 mmol/L (-2.0-2.0); BG CARBOXYHEMOGLOBIN 0.3 % (0.5-1.5); BG DEOXYHEMOGLOBIN 0.7 % (0.0-5.0); BG FRACTION INSPIRED OXYGEN 100; BG HCO3 ACT 27.2 mmol/L (22.0-26.0); BG METHEMOGLOBIN 0.2 % (0.0-1.5); BG OXYGEN SATURATION 99.3 % (92.0-98.5); BG OXYHEMOGLOBIN 98.8 % (94.0-97.0); BG PCO2 36.3 mmHg (35.0-45.0); BG PH 7.492 (7.350-7.450); BG PO2 367.6 mmHg (75.0-100.0); BG SAMPLE SITE RIGHT RADIAL; BG TIDAL VOLUME(mL) 550 mL; BG TOTAL HEMOGLOBIN 10.1 g/dL (12.0-18.0); BG VENT MODE VENT - A/C; BG VENT RATE 16 set
[2019-01-26] MEDS ORDERED: MAGNESIUM/ALUMINUM HYDROXIDE/SIMETHICONE 30ML UDC PO PRN (20:00)
[2019-01-26] MEDS ORDERED: IPRATROPIUM/ALBUTEROL 0.5-3(2.5)MG/3ML NEB NEB PRN (20:00)
[2019-01-26] MEDS ORDERED: IPRATROPIUM/ALBUTEROL 0.5-3(2.5)MG/3ML NEB HHN SCH (20:00)
[2019-01-26] MEDS ORDERED: NITROGLYCERIN 0.4MG TABLET SL SL PRN (20:00)
[2019-01-26] MEDS ORDERED: GUAIFENESIN 200MG/10ML SUGAR FREE UDC PO PRN (20:00)
[2019-01-26] MEDS ORDERED: LORAZEPAM 2MG/ML CPJ IV PRN (20:00)
[2019-01-26] MEDS ORDERED: DOCUSATE SODIUM 100MG CAPSULE PO PRN (20:00)
[2019-01-26] MEDS ORDERED: DEXTROSE 50% WATER 50ML SYRINGE IV PRN (20:15)
[2019-01-26 20:48] LABS: CLARITY URINE CLEAR (CLEAR); COLOR URINE YELLOW (YELLOW); KETONES URINE NEGATIVE (NEGATIVE); LEUKOCYTE ESTERASE URINE NEGATIVE (NEGATIVE); NITRITE URINE NEGATIVE (NEGATIVE); OCCULT BLOOD URINE TRACE (NEGATIVE); PH URINE >=9.0 (4.5-8.0); PROTEIN URINE 3+ (NEGATIVE); UROBILINOGEN URINE 0.2 E.U./dL (0.2-1.0)
[2019-01-26] MEDS ORDERED: LEVETIRACETAM 500MG PREMIX 100 ML IV SCH (21:00)
[2019-01-26 21:07] LABS: *BARBITURATES SCREEN URINE NEGATIVE (NEGATIVE); *BENZODIAZEPINES SCREEN URINE NEGATIVE (NEGATIVE); *COCAINE SCREEN URINE NEGATIVE (NEGATIVE)
[2019-01-26 21:08] LABS: *AMPHETAMINES SCREEN URINE NEGATIVE (NEGATIVE); METHADONE URINE SCREEN NEGATIVE (NEGATIVE); OPIATES URINE SCREEN NEGATIVE (NEGATIVE); PHENCYCLIDINE URINE SCREEN NEGATIVE (NEGATIVE)
[2019-01-26 21:09] LABS: CANNABINOID URINE SCREEN NEGATIVE (NEGATIVE)
[2019-01-26] MEDS: DEXT 5%/LACTATED RINGERS 1,000 ML IV SCH (21:37)
[2019-01-26] MEDS ORDERED: PHENYTOIN SODIUM 500 MG in SODIUM CHLORIDE 0.9% 50 ML IV ONE (22:30)
[2019-01-27] VITALS (56 sets, daily range): BP systolic 110–180; BP diastolic 60–88
[2019-01-27] MEDS: PHENYTOIN SODIUM 100MG/2ML VIAL IV SCH ×3 (03:30→17:04)
[2019-01-27 05:05] LABS: CREATINE KINASE 53 IU/L (39-308)
[2019-01-27 05:06] LABS: CREATINE KINASE MB FRACTION < 1.0 ng/mL (0.5-3.6)
[2019-01-27] MEDS ORDERED: IOHEXOL-350 100 ML BOTTLE ONE (06:26)
[2019-01-27 08:19] LABS: CREATINE KINASE 61 IU/L (39-308)
[2019-01-27 08:20] LABS: CREATINE KINASE MB FRACTION < 1.0 ng/mL (0.5-3.6)
[2019-01-27] MEDS: METOPROLOL TARTRATE 25MG TABLET PO SCH ×2 (09:15→20:25)
[2019-01-27] MEDS: AMLODIPINE 10MG TABLET PO SCH (09:15)
[2019-01-27] MEDS: LISINOPRIL 20MG TABLET PO SCH ×2 (09:15→20:24)
[2019-01-27] MEDS: ASPIRIN 325MG EC TABLET PO SCH (09:15)
[2019-01-27 09:18] LABS: BG BASE EXCESS 3.7 mmol/L (-2.0-2.0); BG CARBOXYHEMOGLOBIN 0.3 % (0.5-1.5); BG DEOXYHEMOGLOBIN 1.6 % (0.0-5.0); BG FRACTION INSPIRED OXYGEN 40; BG HCO3 ACT 26.2 mmol/L (22.0-26.0); BG METHEMOGLOBIN 0.1 % (0.0-1.5); BG OXYGEN SATURATION 98.4 % (92.0-98.5); BG PCO2 30.8 mmHg (35.0-45.0); BG PH 7.547 (7.350-7.450); BG PO2 131.6 mmHg (75.0-100.0); BG SAMPLE SITE RIGHT BRACHIAL; BG TIDAL VOLUME(mL) 550 mL; BG TOTAL HEMOGLOBIN 8.2 g/dL (12.0-18.0); BG VENT MODE VENT - A/C; BG VENT RATE 16 set
[2019-01-27] MEDS: ACETAMINOPHEN 325MG TABLET PO PRN ×2 (09:35→17:04)
[2019-01-27] MEDS: PANTOPRAZOLE SODIUM 40 MG/VIAL IV SCH (09:35)
[2019-01-27] MEDS: ENOXAPARIN 30MG/0.3ML SYR SUBCUT SCH (10:12)
[2019-01-27] MEDS ORDERED: LEVETIRACETAM 500MG in SODIUM CHLORIDE 0.9% 100ML IV SCH (10:30)
[2019-01-27] MEDS: PROPOFOL 10MG/ML 100ML 100 ML IV PRN ×3 (11:06→20:26)
[2019-01-27] MEDS: IPRATROPIUM/ALBUTEROL 0.5-3(2.5)MG/3ML NEB HHN SCH ×3 (11:27→20:15)
[2019-01-27] MEDS: BLOOD SUGAR DIAGNOSTIC STRIP TEST SCH ×3 (12:30→20:26)
[2019-01-27] MEDS: INSULIN LISPRO 100 UNITS/ML SUBCUT SCH ×3 (13:00→20:26)
[2019-01-27] MEDS ORDERED: [UNRECOGNIZED DRUG - OTHER] XX SCH (13:15)
[2019-01-27] MEDS: HYDRALAZINE HCL 50MG TABLET PO SCH ×2 (14:04→22:18)
[2019-01-27] MEDS: DEXT 5%/LACTATED RINGERS 1,000 ML IV SCH (14:04)
[2019-01-27] MEDS ORDERED: VANCOMYCIN 1250MG in DEXTROSE 5% WATER 250ML IV NR (15:00)
[2019-01-27] MEDS ORDERED: CEFEPIME 1,000 MG in DEXTROSE 5% WATER 50 ML IV SCH (16:00)
[2019-01-27] MEDS ORDERED: VANCOMYCIN 1500MG in DEXTROSE 5% WATER 250ML IV SCH (16:00)
[2019-01-27] MEDS ORDERED: NON FORMULARY PATIENT HOME MED XX SCH (16:45)
[2019-01-27] MEDS: LACOSAMIDE 200 MG TABLET (VIMPAT) PO SCH (20:24)
[2019-01-27] MEDS: LEVETIRACETAM 1,000 MG in SODIUM CHLORIDE 0.9% 100 ML IV SCH (22:00)
[2019-01-28] VITALS (92 sets, daily range): BP systolic 107–183; BP diastolic 55–87
[2019-01-28] MEDS: IPRATROPIUM/ALBUTEROL 0.5-3(2.5)MG/3ML NEB HHN SCH ×6 (00:33→20:56)
[2019-01-28] MEDS: PROPOFOL 10MG/ML 100ML 100 ML IV PRN ×2 (01:45→07:18)
[2019-01-28] MEDS: PHENYTOIN SODIUM 100MG/2ML VIAL IV SCH ×3 (02:51→17:28)
[2019-01-28] MEDS: HYDRALAZINE HCL 50MG TABLET PO SCH ×3 (06:20→22:09)
[2019-01-28] MEDS: BLOOD SUGAR DIAGNOSTIC STRIP TEST SCH ×4 (07:30→21:47)
[2019-01-28] MEDS: INSULIN LISPRO 100 UNITS/ML SUBCUT SCH ×4 (07:46→21:00)
[2019-01-28] MEDS: ASPIRIN 325MG EC TABLET PO SCH (09:00)
[2019-01-28 09:04] LABS: BG BASE EXCESS 2.1 mmol/L (-2.0-2.0); BG CARBOXYHEMOGLOBIN 0.9 % (0.5-1.5); BG DEOXYHEMOGLOBIN 0.6 % (0.0-5.0); BG FRACTION INSPIRED OXYGEN 40; BG HCO3 ACT 26.3 mmol/L (22.0-26.0); BG OXYGEN SATURATION 99.4 % (92.0-98.5); BG OXYHEMOGLOBIN 98.5 % (94.0-97.0); BG PCO2 39.1 mmHg (35.0-45.0); BG PH 7.446 (7.350-7.450); BG PO2 187.5 mmHg (75.0-100.0); BG SAMPLE SITE RIGHT RADIAL; BG TIDAL VOLUME(mL) 500 mL; BG TOTAL HEMOGLOBIN 7.4 g/dL (12.0-18.0); BG VENT MODE VENT - A/C; BG VENT RATE 12 set
[2019-01-28] MEDS: LISINOPRIL 20MG TABLET PO SCH ×2 (09:32→21:15)
[2019-01-28] MEDS: AMLODIPINE 10MG TABLET PO SCH (09:32)
[2019-01-28] MEDS: LEVETIRACETAM 1,000 MG in SODIUM CHLORIDE 0.9% 100 ML IV SCH ×2 (09:32→21:15)
[2019-01-28] MEDS: METOPROLOL TARTRATE 25MG TABLET PO SCH ×2 (09:33→21:14)
[2019-01-28] MEDS: LACOSAMIDE 200 MG TABLET (VIMPAT) PO SCH ×2 (09:33→17:28)
[2019-01-28] MEDS: ENOXAPARIN 30MG/0.3ML SYR SUBCUT SCH (09:34)
[2019-01-28] MEDS: PANTOPRAZOLE SODIUM 40 MG/VIAL IV SCH (09:52)
[2019-01-28] MEDS ORDERED: LORAZEPAM 2MG/ML CPJ IV SCH (11:00)
[2019-01-28] MEDS ORDERED: LORAZEPAM 2MG/ML CPJ IV PRN (11:00)
[2019-01-28] MEDS: METRONIDAZOLE 500 MG PREMIX 100 ML IV SCH ×2 (12:18→21:15)
[2019-01-28 12:33] LABS: HEMATOCRIT. 25.5 % (42.0-52.0); HEMOGLOBIN. 8.3 g/dL (14.0-18.0); MEAN CORPUSCULAR HEMOGLOBIN 30.2 pg (28.0-32.0); MEAN CORPUSCULAR VOLUME 93.3 fL (80.0-94.0); MEAN PLATELET VOLUME 7.3 fl (7.4-10.4); PLATELET 309 x1000/uL (130-400); RED BLOOD CELL COUNT 2.73 mill/uL (4.7-6.1); RED CELL DISTRIBUTION WIDTH 20.1 % (11.6-14.6)
[2019-01-28 12:34] LABS: CHLORIDE 97 mEq/L (98-107)
[2019-01-28] MEDS: CLONIDINE 0.1MG TABLET PO PRN (12:43)
[2019-01-28 13:16] LABS: BG DEOXYHEMOGLOBIN 1.4 % (0.0-5.0); BG FRACTION INSPIRED OXYGEN 40; BG HCO3 ACT 24.8 mmol/L (22.0-26.0); BG METHEMOGLOBIN 0.3 % (0.0-1.5); BG OXYGEN SATURATION 98.6 % (92.0-98.5); BG OXYHEMOGLOBIN 98.3 % (94.0-97.0); BG PCO2 35.8 mmHg (35.0-45.0); BG PH 7.458 (7.350-7.450); BG PO2 139.4 mmHg (75.0-100.0); BG PRESSURE SUPPORT 8; BG SAMPLE SITE RIGHT BRACHIAL; BG TOTAL HEMOGLOBIN 8.3 g/dL (12.0-18.0); BG VENT MODE VENT - CPAP
[2019-01-28 13:25] LABS: PLATELET ESTIMATE NORMAL
[2019-01-28] MEDS: ACETAMINOPHEN 325MG TABLET PO PRN (14:12)
[2019-01-28] MEDS: ACETYLCYSTEINE 100MG/ML 10% VIAL 4ML INH SCH ×2 (16:03→16:11)
[2019-01-28] MEDS: DEXT 5%/LACTATED RINGERS 1,000 ML IV SCH (17:43)
[2019-01-28] MEDS: CEFEPIME 1,000 MG in DEXTROSE 5% WATER 50 ML IV SCH (18:31)
[2019-01-29] VITALS (97 sets, daily range): BP systolic 109–180; BP diastolic 45–92
[2019-01-29] MEDS: IPRATROPIUM/ALBUTEROL 0.5-3(2.5)MG/3ML NEB HHN SCH ×6 (00:56→20:25)
[2019-01-29] MEDS: ACETYLCYSTEINE 100MG/ML 10% VIAL 4ML INH SCH ×3 (00:57→15:44)
[2019-01-29] MEDS: PHENYTOIN SODIUM 100MG/2ML VIAL IV SCH ×3 (02:17→17:54)
[2019-01-29] MEDS: CLONIDINE 0.1MG TABLET PO PRN (02:18)
[2019-01-29] MEDS: METRONIDAZOLE 500 MG PREMIX 100 ML IV SCH ×3 (03:54→22:43)
[2019-01-29] MEDS: BLOOD SUGAR DIAGNOSTIC STRIP TEST SCH ×4 (07:30→20:49)
[2019-01-29] MEDS: INSULIN LISPRO 100 UNITS/ML SUBCUT SCH ×4 (08:00→21:00)
[2019-01-29] MEDS: ASPIRIN 325MG EC TABLET PO SCH (09:33)
[2019-01-29] MEDS: ACETAMINOPHEN 325MG TABLET PO PRN (09:33)
[2019-01-29] MEDS: AMLODIPINE 10MG TABLET PO SCH (09:34)
[2019-01-29] MEDS: LISINOPRIL 20MG TABLET PO SCH ×2 (09:50→20:48)
[2019-01-29] MEDS: METOPROLOL TARTRATE 25MG TABLET PO SCH ×2 (09:51→20:48)
[2019-01-29] MEDS: PANTOPRAZOLE SODIUM 40 MG/VIAL IV SCH (09:51)
[2019-01-29] MEDS: THIAMINE HCL 100MG TABLET NG SCH (09:51)
[2019-01-29] MEDS: HYDRALAZINE HCL 50MG TABLET PO SCH ×3 (09:52→21:04)
[2019-01-29] MEDS: LEVETIRACETAM 1,000 MG in SODIUM CHLORIDE 0.9% 100 ML IV SCH ×2 (09:52→20:47)
[2019-01-29] MEDS: DEXT 5%/LACTATED RINGERS 1,000 ML IV SCH (09:53)
[2019-01-29] MEDS: LACOSAMIDE 200 MG TABLET (VIMPAT) PO SCH ×2 (09:53→17:12)
[2019-01-29] MEDS: ENOXAPARIN 30MG/0.3ML SYR SUBCUT SCH (10:11)
[2019-01-29] MEDS ORDERED: VANCOMYCIN 1250MG in DEXTROSE 5% WATER 250ML IV NR (12:00)
[2019-01-29 13:23] LABS: HEMATOCRIT. 21.9 % (42.0-52.0); HEMOGLOBIN. 7.3 g/dL (14.0-18.0); MEAN CORPUSCULAR HEMOGLOBIN 30.9 pg (28.0-32.0); MEAN CORPUSCULAR VOLUME 93.4 fL (80.0-94.0); MEAN PLATELET VOLUME 7.5 fl (7.4-10.4); PLATELET 301 x1000/uL (130-400); RED BLOOD CELL COUNT 2.35 mill/uL (4.7-6.1); RED CELL DISTRIBUTION WIDTH 20.3 % (11.6-14.6)
[2019-01-29] MEDS: CEFEPIME 1,000 MG in DEXTROSE 5% WATER 50 ML IV SCH (17:54)
[2019-01-29 19:53] LABS: PLATELET ESTIMATE NORMAL
[2019-01-29] MEDS: EPOETIN ALFA 10000UNITS/ML VIAL SUBCUT SCH (20:47)
[2019-01-30] VITALS (71 sets, daily range): BP systolic 117–216; BP diastolic 45–106
[2019-01-30] MEDS: IPRATROPIUM/ALBUTEROL 0.5-3(2.5)MG/3ML NEB HHN SCH ×6 (00:31→17:49)
[2019-01-30] MEDS: ACETYLCYSTEINE 100MG/ML 10% VIAL 4ML INH SCH ×3 (00:31→17:50)
[2019-01-30] MEDS: PHENYTOIN SODIUM 100MG/2ML VIAL IV SCH ×3 (02:08→18:49)
[2019-01-30] MEDS: METRONIDAZOLE 500 MG PREMIX 100 ML IV SCH ×3 (06:06→22:37)
[2019-01-30] MEDS: HYDRALAZINE HCL 50MG TABLET PO SCH ×3 (06:06→20:55)
[2019-01-30] MEDS: INSULIN LISPRO 100 UNITS/ML SUBCUT SCH ×4 (08:00→20:56)
[2019-01-30] MEDS: DEXT 5%/LACTATED RINGERS 1,000 ML IV SCH ×2 (08:28→23:39)
[2019-01-30] MEDS: BLOOD SUGAR DIAGNOSTIC STRIP TEST SCH ×4 (08:29→20:54)
[2019-01-30] MEDS: LACOSAMIDE 200 MG TABLET (VIMPAT) PO SCH ×2 (09:00→18:49)
[2019-01-30] MEDS: PANTOPRAZOLE SODIUM 40 MG/VIAL IV SCH (09:00)
[2019-01-30] MEDS: THIAMINE HCL 100MG TABLET NG SCH (09:00)
[2019-01-30] MEDS: LEVETIRACETAM 1,000 MG in SODIUM CHLORIDE 0.9% 100 ML IV SCH ×2 (09:00→21:36)
[2019-01-30] MEDS: LISINOPRIL 20MG TABLET PO SCH ×2 (09:00→20:55)
[2019-01-30] MEDS: ASPIRIN 325MG EC TABLET PO SCH (09:00)
[2019-01-30] MEDS: METOPROLOL TARTRATE 25MG TABLET PO SCH ×2 (09:01→20:56)
[2019-01-30] MEDS: AMLODIPINE 10MG TABLET PO SCH (09:01)
[2019-01-30] MEDS: ENOXAPARIN 30MG/0.3ML SYR SUBCUT SCH (09:04)
[2019-01-30] MEDS: DOCUSATE SODIUM SUGAR FREE 100MG/10ML UDC PEG PRN (09:28)
[2019-01-30 09:35] LABS: BG BASE EXCESS 1.6 mmol/L (-2.0-2.0); BG CARBOXYHEMOGLOBIN 0.3 % (0.5-1.5); BG DEOXYHEMOGLOBIN 1.3 % (0.0-5.0); BG FRACTION INSPIRED OXYGEN 40; BG METHEMOGLOBIN 0.6 % (0.0-1.5); BG OXYGEN SATURATION 98.7 % (92.0-98.5); BG OXYHEMOGLOBIN 97.8 % (94.0-97.0); BG PCO2 33.9 mmHg (35.0-45.0); BG PH 7.486 (7.350-7.450); BG PO2 175.1 mmHg (75.0-100.0); BG PRESSURE SUPPORT 12; BG SAMPLE SITE RIGHT RADIAL; BG TIDAL VOLUME(mL) 500 mL; BG TOTAL HEMOGLOBIN 7.5 g/dL (12.0-18.0); BG VENT MODE VENT - SIMV; BG VENT RATE 8 set
[2019-01-30 12:22] LABS: HEMATOCRIT. 23.3 % (42.0-52.0); HEMOGLOBIN. 7.8 g/dL (14.0-18.0); MEAN CORPUSCULAR HEMOGLOBIN 31.2 pg (28.0-32.0); MEAN CORPUSCULAR VOLUME 92.9 fL (80.0-94.0); MEAN PLATELET VOLUME 8.5 fl (7.4-10.4); PLATELET 309 x1000/uL (130-400); RED BLOOD CELL COUNT 2.51 mill/uL (4.7-6.1); RED CELL DISTRIBUTION WIDTH 19.9 % (11.6-14.6)
[2019-01-30 12:37] LABS: PHOSPHORUS 3.6 mg/dL (2.5-4.9)
[2019-01-30 13:03] LABS: PLATELET ESTIMATE NORMAL
[2019-01-30 15:01] LABS: BG BASE EXCESS 0.3 mmol/L (-2.0-2.0); BG CARBOXYHEMOGLOBIN 0.3 % (0.5-1.5); BG DEOXYHEMOGLOBIN 0.8 % (0.0-5.0); BG FRACTION INSPIRED OXYGEN 40; BG HCO3 ACT 23.8 mmol/L (22.0-26.0); BG METHEMOGLOBIN 0.4 % (0.0-1.5); BG OXYGEN SATURATION 99.2 % (92.0-98.5); BG OXYHEMOGLOBIN 98.5 % (94.0-97.0); BG PCO2 33.5 mmHg (35.0-45.0); BG PO2 240.6 mmHg (75.0-100.0); BG SAMPLE SITE RIGHT RADIAL; BG TOTAL HEMOGLOBIN 7.6 g/dL (12.0-18.0); BG VENT MODE VENT - CPAP
[2019-01-30] MEDS: CEFEPIME 1,000 MG in DEXTROSE 5% WATER 50 ML IV SCH (18:50)
[2019-01-30 21:06] LABS: BG BASE EXCESS 0.1 mmol/L (-2.0-2.0); BG CARBOXYHEMOGLOBIN 0.3 % (0.5-1.5); BG DEOXYHEMOGLOBIN 1.6 % (0.0-5.0); BG FRACTION INSPIRED OXYGEN 40; BG HCO3 ACT 23.9 mmol/L (22.0-26.0); BG METHEMOGLOBIN 0.1 % (0.0-1.5); BG OXYGEN SATURATION 98.4 % (92.0-98.5); BG PCO2 35.8 mmHg (35.0-45.0); BG PH 7.443 (7.350-7.450); BG PO2 131.7 mmHg (75.0-100.0); BG PRESSURE SUPPORT 12; BG SAMPLE SITE RIGHT RADIAL; BG TIDAL VOLUME(mL) 500 mL; BG TOTAL HEMOGLOBIN 11.5 g/dL (12.0-18.0); BG VENT MODE VENT - SIMV; BG VENT RATE 8 set
[2019-01-30] MEDS: PROPOFOL 10MG/ML 100ML 100 ML IV PRN (21:36)
[2019-01-30] MEDS: ACETAMINOPHEN 325MG TABLET PO PRN (23:39)
[2019-01-31] VITALS (80 sets, daily range): BP systolic 90–167; BP diastolic 37–77
[2019-01-31] MEDS: IPRATROPIUM/ALBUTEROL 0.5-3(2.5)MG/3ML NEB HHN SCH ×6 (00:28→21:28)
[2019-01-31] MEDS: PHENYTOIN SODIUM 100MG/2ML VIAL IV SCH ×3 (01:26→18:04)
[2019-01-31] MEDS: PROPOFOL 10MG/ML 100ML 100 ML IV PRN ×2 (04:46→15:52)
[2019-01-31] MEDS: HYDRALAZINE HCL 50MG TABLET PO SCH ×3 (05:11→21:30)
[2019-01-31] MEDS: METRONIDAZOLE 500 MG PREMIX 100 ML IV SCH ×2 (06:00→15:53)
[2019-01-31 06:04] LABS: MEAN CORPUSCULAR HEMOGLOBIN 30.3 pg (28.0-32.0); MEAN CORPUSCULAR VOLUME 93.3 fL (80.0-94.0); MEAN PLATELET VOLUME 8.4 fl (7.4-10.4); PLATELET 234 x1000/uL (130-400); RED BLOOD CELL COUNT 2.19 mill/uL (4.7-6.1); RED CELL DISTRIBUTION WIDTH 20.3 % (11.6-14.6)
[2019-01-31 06:24] LABS: HEMATOCRIT. 20.5 % (42.0-52.0); HEMOGLOBIN. 6.6 g/dL (14.0-18.0)
[2019-01-31] MEDS: BLOOD SUGAR DIAGNOSTIC STRIP TEST SCH ×4 (07:30→21:29)
[2019-01-31] MEDS: INSULIN LISPRO 100 UNITS/ML SUBCUT SCH ×4 (08:00→21:00)
[2019-01-31] MEDS: ACETYLCYSTEINE 100MG/ML 10% VIAL 4ML INH SCH ×2 (08:29→15:59)
[2019-01-31] MEDS: LISINOPRIL 20MG TABLET PO SCH ×2 (09:00→21:31)
[2019-01-31] MEDS: AMLODIPINE 10MG TABLET PO SCH (09:00)
[2019-01-31] MEDS: THIAMINE HCL 100MG TABLET NG SCH (09:24)
[2019-01-31] MEDS: LEVETIRACETAM 1,000 MG in SODIUM CHLORIDE 0.9% 100 ML IV SCH ×2 (09:24→22:12)
[2019-01-31] MEDS: METOPROLOL TARTRATE 25MG TABLET PO SCH ×2 (09:24→21:30)
[2019-01-31] MEDS: LACOSAMIDE 200 MG TABLET (VIMPAT) PO SCH ×2 (09:24→18:04)
[2019-01-31] MEDS: ASPIRIN 325MG EC TABLET PO SCH (09:24)
[2019-01-31] MEDS: FAMOTIDINE 20MG/2ML VIAL IV SCH (09:25)
[2019-01-31] MEDS: ENOXAPARIN 30MG/0.3ML SYR SUBCUT SCH (09:28)
[2019-01-31] MEDS: CEFEPIME 1,000 MG in DEXTROSE 5% WATER 50 ML IV SCH (18:04)
[2019-01-31 19:21] LABS: PLATELET ESTIMATE NORMAL
[2019-01-31] MEDS ORDERED: PROPOFOL 10MG/ML 100ML 100 ML IV PRN (20:15)
[2019-01-31] MEDS: EPOETIN ALFA 10000UNITS/ML VIAL SUBCUT SCH (21:53)
[2019-01-31 22:16] LABS: BG BASE EXCESS 3.1 mmol/L (-2.0-2.0); BG CARBOXYHEMOGLOBIN 0.8 % (0.5-1.5); BG FRACTION INSPIRED OXYGEN 40; BG METHEMOGLOBIN 0.2 % (0.0-1.5); BG PCO2 38.4 mmHg (35.0-45.0); BG PH 7.465 (7.350-7.450); BG PO2 131.5 mmHg (75.0-100.0); BG SAMPLE SITE RIGHT RADIAL; BG TIDAL VOLUME(mL) 500 mL; BG TOTAL HEMOGLOBIN 7.9 g/dL (12.0-18.0); BG VENT MODE VENT - A/C; BG VENT RATE 10 set
[2019-02-01] VITALS (80 sets, daily range): BP systolic 59–162; BP diastolic 38–80
[2019-02-01] MEDS: METRONIDAZOLE 500 MG PREMIX 100 ML IV SCH ×3 (00:44→21:07)
[2019-02-01] MEDS: ACETYLCYSTEINE 100MG/ML 10% VIAL 4ML INH SCH ×3 (00:59→16:00)
[2019-02-01] MEDS: IPRATROPIUM/ALBUTEROL 0.5-3(2.5)MG/3ML NEB HHN SCH ×6 (01:00→20:24)
[2019-02-01] MEDS: PHENYTOIN SODIUM 100MG/2ML VIAL IV SCH ×3 (02:11→17:12)
[2019-02-01 06:35] LABS: HEMATOCRIT. 22.6 % (42.0-52.0); HEMOGLOBIN. 7.6 g/dL (14.0-18.0); MEAN CORPUSCULAR HEMOGLOBIN 30.6 pg (28.0-32.0); MEAN CORPUSCULAR VOLUME 91.6 fL (80.0-94.0); MEAN PLATELET VOLUME 8.1 fl (7.4-10.4); PLATELET 271 x1000/uL (130-400); RED BLOOD CELL COUNT 2.47 mill/uL (4.7-6.1); RED CELL DISTRIBUTION WIDTH 19.2 % (11.6-14.6)
[2019-02-01] MEDS: HYDRALAZINE HCL 50MG TABLET PO SCH ×3 (07:11→21:07)
[2019-02-01] MEDS: BLOOD SUGAR DIAGNOSTIC STRIP TEST SCH ×2 (07:30→12:29)
[2019-02-01] MEDS: INSULIN LISPRO 100 UNITS/ML SUBCUT SCH ×3 (08:00→18:00)
[2019-02-01] MEDS: LISINOPRIL 20MG TABLET PO SCH ×2 (08:55→21:07)
[2019-02-01] MEDS: LEVETIRACETAM 1,000 MG in SODIUM CHLORIDE 0.9% 100 ML IV SCH ×2 (08:55→22:42)
[2019-02-01] MEDS: ASPIRIN 325MG EC TABLET PO SCH (08:56)
[2019-02-01] MEDS: METOPROLOL TARTRATE 25MG TABLET PO SCH ×2 (08:56→21:07)
[2019-02-01] MEDS: LACOSAMIDE 200 MG TABLET (VIMPAT) PO SCH ×2 (08:56→16:47)
[2019-02-01] MEDS: FAMOTIDINE 20MG/2ML VIAL IV SCH (08:57)
[2019-02-01] MEDS: AMLODIPINE 10MG TABLET PO SCH (09:00)
[2019-02-01 09:02] LABS: BG BASE EXCESS 2.7 mmol/L (-2.0-2.0); BG CARBOXYHEMOGLOBIN 0.1 % (0.5-1.5); BG DEOXYHEMOGLOBIN 1.2 % (0.0-5.0); BG FRACTION INSPIRED OXYGEN 40; BG HCO3 ACT 26.9 mmol/L (22.0-26.0); BG METHEMOGLOBIN 0.3 % (0.0-1.5); BG OXYGEN SATURATION 98.8 % (92.0-98.5); BG OXYHEMOGLOBIN 98.4 % (94.0-97.0); BG PCO2 39.6 mmHg (35.0-45.0); BG PO2 148.4 mmHg (75.0-100.0); BG SAMPLE SITE RIGHT RADIAL; BG TIDAL VOLUME(mL) 500 mL; BG TOTAL HEMOGLOBIN 8.1 g/dL (12.0-18.0); BG VENT MODE VENT - A/C; BG VENT RATE 10 set
[2019-02-01 13:41] LABS: PLATELET ESTIMATE NORMAL
[2019-02-01] MEDS: CEFEPIME 1,000 MG in DEXTROSE 5% WATER 50 ML IV SCH (17:12)
[2019-02-01] MEDS: PROPOFOL 10MG/ML 100ML 100 ML IV PRN (21:34)
[2019-02-01 23:37] LABS: HEMATOCRIT. 23.7 % (42.0-52.0); HEMOGLOBIN. 7.8 g/dL (14.0-18.0); MEAN CORPUSCULAR HEMOGLOBIN 30.6 pg (28.0-32.0); MEAN CORPUSCULAR VOLUME 92.9 fL (80.0-94.0); MEAN PLATELET VOLUME 7.7 fl (7.4-10.4); PLATELET 299 x1000/uL (130-400); RED BLOOD CELL COUNT 2.55 mill/uL (4.7-6.1)
[2019-02-02] VITALS (87 sets, daily range): BP systolic 95–175; BP diastolic 40–104
[2019-02-02] MEDS: IPRATROPIUM/ALBUTEROL 0.5-3(2.5)MG/3ML NEB HHN SCH ×6 (00:13→20:29)
[2019-02-02] MEDS: ACETYLCYSTEINE 100MG/ML 10% VIAL 4ML INH SCH ×2 (00:14→08:16)
[2019-02-02] MEDS: PHENYTOIN SODIUM 100MG/2ML VIAL IV SCH ×3 (01:29→18:01)
[2019-02-02 01:47] LABS: PLATELET ESTIMATE NORMAL
[2019-02-02] MEDS: BLOOD SUGAR DIAGNOSTIC STRIP TEST SCH ×5 (05:04→23:28)
[2019-02-02] MEDS: METRONIDAZOLE 500 MG PREMIX 100 ML IV SCH ×3 (05:13→20:46)
[2019-02-02] MEDS: HYDRALAZINE HCL 50MG TABLET PO SCH ×3 (05:14→21:39)
[2019-02-02 06:56] LABS: HEMATOCRIT. 24.6 % (42.0-52.0); HEMOGLOBIN. 7.9 g/dL (14.0-18.0); MEAN CORPUSCULAR HEMOGLOBIN 30.2 pg (28.0-32.0); MEAN CORPUSCULAR VOLUME 93.9 fL (80.0-94.0); MEAN PLATELET VOLUME 9.1 fl (7.4-10.4); PLATELET 311 x1000/uL (130-400); RED BLOOD CELL COUNT 2.62 mill/uL (4.7-6.1)
[2019-02-02] MEDS: AMLODIPINE 10MG TABLET PO SCH (09:00)
[2019-02-02] MEDS: LISINOPRIL 20MG TABLET PO SCH ×3 (09:00→20:47)
[2019-02-02] MEDS: METOPROLOL TARTRATE 25MG TABLET PO SCH ×2 (09:00→20:47)
[2019-02-02] MEDS: LACOSAMIDE 200 MG TABLET (VIMPAT) PO SCH ×2 (10:03→18:01)
[2019-02-02] MEDS: LEVETIRACETAM 1,000 MG in SODIUM CHLORIDE 0.9% 100 ML IV SCH ×2 (10:03→21:38)
[2019-02-02] MEDS: FAMOTIDINE 20MG/2ML VIAL IV SCH (10:04)
[2019-02-02] MEDS: ASPIRIN 325MG EC TABLET PO SCH (10:04)
[2019-02-02] MEDS: INSULIN LISPRO 100 UNITS/ML SUBCUT SCH ×4 (12:00→23:29)
[2019-02-02] MEDS: PROPOFOL 10MG/ML 100ML 100 ML IV PRN (12:11)
[2019-02-02 12:31] LABS: PLATELET ESTIMATE NORMAL
[2019-02-02 13:43] LABS: BG BASE EXCESS 3.8 mmol/L (-2.0-2.0); BG CARBOXYHEMOGLOBIN 0.3 % (0.5-1.5); BG DEOXYHEMOGLOBIN 2.7 % (0.0-5.0); BG FRACTION INSPIRED OXYGEN 40; BG METHEMOGLOBIN 0.3 % (0.0-1.5); BG OXYGEN SATURATION 97.3 % (92.0-98.5); BG OXYHEMOGLOBIN 96.7 % (94.0-97.0); BG PH 7.453 (7.350-7.450); BG PO2 95.7 mmHg (75.0-100.0); BG PRESSURE SUPPORT 12; BG SAMPLE SITE RIGHT RADIAL; BG TIDAL VOLUME(mL) 500 mL; BG TOTAL HEMOGLOBIN 8.6 g/dL (12.0-18.0); BG VENT MODE VENT - SIMV; BG VENT RATE 8 set
[2019-02-02] MEDS ORDERED: PROPOFOL 10MG/ML 100ML 100 ML IV PRN (13:45)
[2019-02-02] MEDS: CEFEPIME 1,000 MG in DEXTROSE 5% WATER 50 ML IV SCH (18:01)
[2019-02-03] VITALS (89 sets, daily range): BP systolic 110–165; BP diastolic 51–82
[2019-02-03] MEDS: IPRATROPIUM/ALBUTEROL 0.5-3(2.5)MG/3ML NEB HHN SCH ×6 (00:22→20:11)
[2019-02-03] MEDS: PHENYTOIN SODIUM 100MG/2ML VIAL IV SCH ×3 (02:15→17:44)
[2019-02-03] MEDS: METRONIDAZOLE 500 MG PREMIX 100 ML IV SCH ×3 (04:34→20:58)
[2019-02-03] MEDS: INSULIN LISPRO 100 UNITS/ML SUBCUT SCH ×4 (05:49→23:49)
[2019-02-03] MEDS: BLOOD SUGAR DIAGNOSTIC STRIP TEST SCH ×4 (05:49→23:49)
[2019-02-03] MEDS: HYDRALAZINE HCL 50MG TABLET PO SCH ×3 (06:21→21:17)
[2019-02-03] MEDS: FAMOTIDINE 20MG/2ML VIAL IV SCH (08:42)
[2019-02-03] MEDS: AMLODIPINE 10MG TABLET PO SCH (08:42)
[2019-02-03] MEDS: LISINOPRIL 20MG TABLET PO SCH ×2 (08:42→21:17)
[2019-02-03] MEDS: ASPIRIN 325MG EC TABLET PO SCH (08:42)
[2019-02-03] MEDS: LACOSAMIDE 200 MG TABLET (VIMPAT) PO SCH ×2 (08:42→17:45)
[2019-02-03] MEDS: METOPROLOL TARTRATE 25MG TABLET PO SCH ×2 (08:42→21:16)
[2019-02-03 09:39] LABS: BG CARBOXYHEMOGLOBIN 0.3 % (0.5-1.5); BG DEOXYHEMOGLOBIN 1.2 % (0.0-5.0); BG FRACTION INSPIRED OXYGEN 40; BG HCO3 ACT 26.7 mmol/L (22.0-26.0); BG METHEMOGLOBIN 0.4 % (0.0-1.5); BG OXYGEN SATURATION 98.8 % (92.0-98.5); BG OXYHEMOGLOBIN 98.1 % (94.0-97.0); BG PCO2 42.4 mmHg (35.0-45.0); BG PH 7.417 (7.350-7.450); BG PO2 141.2 mmHg (75.0-100.0); BG PRESSURE SUPPORT 12; BG SAMPLE SITE RIGHT RADIAL; BG TIDAL VOLUME(mL) 500 mL; BG TOTAL HEMOGLOBIN 10.2 g/dL (12.0-18.0); BG VENT MODE VENT - SIMV; BG VENT RATE 8 set
[2019-02-03] MEDS: LEVETIRACETAM 1,000 MG in SODIUM CHLORIDE 0.9% 100 ML IV SCH ×2 (11:02→20:58)
[2019-02-03] MEDS ORDERED: LORAZEPAM 2MG/ML CPJ IV PRN (17:30)
[2019-02-03] MEDS ORDERED: MORPHINE SULFATE 2 MG/ML CPJ (NOT FOR IM USE) IV PRN (17:30)
[2019-02-03] MEDS: CEFEPIME 1,000 MG in DEXTROSE 5% WATER 50 ML IV SCH (17:44)
[2019-02-03 18:27] LABS: BG BASE EXCESS 2.9 mmol/L (-2.0-2.0); BG CARBOXYHEMOGLOBIN 0.3 % (0.5-1.5); BG DEOXYHEMOGLOBIN 2.2 % (0.0-5.0); BG FRACTION INSPIRED OXYGEN 40; BG HCO3 ACT 27.2 mmol/L (22.0-26.0); BG METHEMOGLOBIN 0.3 % (0.0-1.5); BG OXYGEN SATURATION 97.8 % (92.0-98.5); BG OXYHEMOGLOBIN 97.2 % (94.0-97.0); BG PCO2 40.9 mmHg (35.0-45.0); BG PH 7.441 (7.350-7.450); BG PO2 112.1 mmHg (75.0-100.0); BG PRESSURE SUPPORT 8; BG SAMPLE SITE RIGHT BRACHIAL; BG TOTAL HEMOGLOBIN 9.2 g/dL (12.0-18.0); BG VENT MODE VENT - CPAP
[2019-02-03] MEDS: EPOETIN ALFA 10000UNITS/ML VIAL SUBCUT SCH (21:16)
[2019-02-04] VITALS (72 sets, daily range): BP systolic 103–167; BP diastolic 44–80
[2019-02-04] MEDS: IPRATROPIUM/ALBUTEROL 0.5-3(2.5)MG/3ML NEB HHN SCH ×6 (00:09→20:35)
[2019-02-04] MEDS: PHENYTOIN SODIUM 100MG/2ML VIAL IV SCH ×3 (02:24→17:40)
[2019-02-04] MEDS: METRONIDAZOLE 500 MG PREMIX 100 ML IV SCH ×3 (04:29→20:34)
[2019-02-04] MEDS: HYDRALAZINE HCL 50MG TABLET PO SCH ×3 (06:00→21:27)
[2019-02-04] MEDS: INSULIN LISPRO 100 UNITS/ML SUBCUT SCH ×4 (06:00→23:17)
[2019-02-04] MEDS: BLOOD SUGAR DIAGNOSTIC STRIP TEST SCH ×4 (06:19→23:17)
[2019-02-04] MEDS: LACOSAMIDE 200 MG TABLET (VIMPAT) PO SCH ×2 (10:00→17:40)
[2019-02-04] MEDS: LEVETIRACETAM 1,000 MG in SODIUM CHLORIDE 0.9% 100 ML IV SCH ×2 (10:00→21:38)
[2019-02-04] MEDS: FAMOTIDINE 20MG/2ML VIAL IV SCH (10:00)
[2019-02-04] MEDS: ASPIRIN 325MG EC TABLET PO SCH (10:01)
[2019-02-04] MEDS: AMLODIPINE 10MG TABLET PO SCH (10:02)
[2019-02-04] MEDS: LISINOPRIL 20MG TABLET PO SCH ×2 (10:02→20:35)
[2019-02-04] MEDS: METOPROLOL TARTRATE 25MG TABLET PO SCH ×2 (10:02→20:34)
[2019-02-04 11:17] LABS: BG BASE EXCESS 1.2 mmol/L (-2.0-2.0); BG CARBOXYHEMOGLOBIN 0.1 % (0.5-1.5); BG DEOXYHEMOGLOBIN 1.3 % (0.0-5.0); BG FRACTION INSPIRED OXYGEN 40; BG HCO3 ACT 25.4 mmol/L (22.0-26.0); BG METHEMOGLOBIN 0.3 % (0.0-1.5); BG OXYGEN SATURATION 98.7 % (92.0-98.5); BG OXYHEMOGLOBIN 98.3 % (94.0-97.0); BG PCO2 38.6 mmHg (35.0-45.0); BG PH 7.436 (7.350-7.450); BG PO2 137.9 mmHg (75.0-100.0); BG PRESSURE SUPPORT 8; BG SAMPLE SITE RIGHT RADIAL; BG TOTAL HEMOGLOBIN 8.5 g/dL (12.0-18.0); BG VENT MODE VENT - CPAP
[2019-02-04] MEDS: ACETYLCYSTEINE 100MG/ML 10% VIAL 4ML INH SCH ×2 (11:53→20:36)
[2019-02-04] MEDS: ONDANSETRON HCL 4MG/2ML INJ IV PRN (15:39)
[2019-02-05] VITALS (79 sets, daily range): BP systolic 103–177; BP diastolic 43–88
[2019-02-05] MEDS: IPRATROPIUM/ALBUTEROL 0.5-3(2.5)MG/3ML NEB HHN SCH ×6 (01:06→21:24)
[2019-02-05] MEDS: PHENYTOIN SODIUM 100MG/2ML VIAL IV SCH ×4 (01:57→17:28)
[2019-02-05] MEDS: BLOOD SUGAR DIAGNOSTIC STRIP TEST SCH ×3 (05:52→17:23)
[2019-02-05] MEDS: INSULIN LISPRO 100 UNITS/ML SUBCUT SCH ×3 (05:52→17:59)
[2019-02-05] MEDS: HYDRALAZINE HCL 50MG TABLET PO SCH ×3 (05:55→21:48)
[2019-02-05] MEDS: LEVETIRACETAM 1,000 MG in SODIUM CHLORIDE 0.9% 100 ML IV SCH ×2 (08:06→21:47)
[2019-02-05] MEDS: FAMOTIDINE 20MG/2ML VIAL IV SCH (08:06)
[2019-02-05] MEDS: LACOSAMIDE 200 MG TABLET (VIMPAT) PO SCH ×2 (08:06→17:28)
[2019-02-05] MEDS: ASPIRIN 325MG EC TABLET PO SCH (08:06)
[2019-02-05] MEDS: ACETYLCYSTEINE 100MG/ML 10% VIAL 4ML INH SCH ×2 (08:45→16:06)
[2019-02-05 09:38] LABS: HEMATOCRIT 24.9 % (42.0-52.0); MEAN CORPUSCULAR HEMOGLOBIN 30.9 pg (28.0-32.0); MEAN CORPUSCULAR VOLUME 96.4 fL (80.0-94.0); PLATELET 386 x1000/uL (130-400); RED BLOOD CELL COUNT 2.58 mill/uL (4.7-6.1); RED CELL DISTRIBUTION WIDTH 20.1 % (11.6-14.6)
[2019-02-05 11:50] LABS: HEMATOCRIT. 27.4 % (42.0-52.0); MEAN CORPUSCULAR HEMOGLOBIN 30.9 pg (28.0-32.0); MEAN CORPUSCULAR VOLUME 94.5 fL (80.0-94.0); MEAN PLATELET VOLUME 7.8 fl (7.4-10.4); PLATELET 371 x1000/uL (130-400); RED CELL DISTRIBUTION WIDTH 19.4 % (11.6-14.6)
[2019-02-05 12:01] LABS: CHLORIDE 111 mEq/L (98-107)
[2019-02-05 12:48] LABS: PLATELET ESTIMATE NORMAL
[2019-02-05] MEDS ORDERED: LACTULOSE 20G/30ML UDC PO NR (13:15)
[2019-02-05] MEDS: AMLODIPINE 10MG TABLET PO SCH (13:26)
[2019-02-05] MEDS: LISINOPRIL 20MG TABLET PO SCH ×2 (13:26→21:48)
[2019-02-05] MEDS: METOPROLOL TARTRATE 25MG TABLET PO SCH ×2 (13:27→21:48)
[2019-02-05] MEDS: CLONIDINE 0.1MG TABLET PO PRN (18:48)
[2019-02-05] MEDS ORDERED: EPOETIN ALFA 10000UNITS/ML VIAL SUBCUT SCH (21:00)
[2019-02-05] MEDS: DIPHENHYDRAMINE 50MG/ML VIAL IV PRN (21:47)
[2019-02-06] VITALS (33 sets, daily range): BP systolic 97–156; BP diastolic 46–80
[2019-02-06] MEDS: ACETYLCYSTEINE 100MG/ML 10% VIAL 4ML INH SCH ×3 (01:16→16:55)
[2019-02-06] MEDS: IPRATROPIUM/ALBUTEROL 0.5-3(2.5)MG/3ML NEB HHN SCH ×6 (01:16→20:27)
[2019-02-06] MEDS: PHENYTOIN SODIUM 100MG/2ML VIAL IV SCH ×3 (01:38→17:06)
[2019-02-06] MEDS: HYDRALAZINE HCL 50MG TABLET PO SCH ×3 (05:42→21:35)
[2019-02-06] MEDS: INSULIN LISPRO 100 UNITS/ML SUBCUT SCH ×4 (06:00→18:00)
[2019-02-06] MEDS: BLOOD SUGAR DIAGNOSTIC STRIP TEST SCH ×4 (06:16→18:21)
[2019-02-06] MEDS: LACOSAMIDE 200 MG TABLET (VIMPAT) PO SCH ×2 (08:06→17:06)
[2019-02-06] MEDS: LISINOPRIL 20MG TABLET PO SCH ×2 (08:07→21:34)
[2019-02-06] MEDS: AMLODIPINE 10MG TABLET PO SCH (08:07)
[2019-02-06] MEDS: METOPROLOL TARTRATE 25MG TABLET PO SCH ×2 (08:07→21:34)
[2019-02-06] MEDS: MULTIVITAMINS,THER W-MINERALS TABLET GT SCH (08:07)
[2019-02-06] MEDS: ASPIRIN 325MG EC TABLET PO SCH (08:07)
[2019-02-06] MEDS: LEVETIRACETAM 1,000 MG in SODIUM CHLORIDE 0.9% 100 ML IV SCH ×2 (08:12→21:32)
[2019-02-06] MEDS: FAMOTIDINE 20MG/2ML VIAL IV SCH (08:44)
[2019-02-06 10:49] LABS: BG BASE EXCESS -0.3 mmol/L (-2.0-2.0); BG CARBOXYHEMOGLOBIN 0.2 % (0.5-1.5); BG FRACTION INSPIRED OXYGEN 40; BG HCO3 ACT 24.5 mmol/L (22.0-26.0); BG METHEMOGLOBIN 0.3 % (0.0-1.5); BG OXYHEMOGLOBIN 98.5 % (94.0-97.0); BG PCO2 40.5 mmHg (35.0-45.0); BG PH 7.399 (7.350-7.450); BG PO2 158.1 mmHg (75.0-100.0); BG SAMPLE SITE RIGHT RADIAL; BG TOTAL HEMOGLOBIN 8.4 g/dL (12.0-18.0); BG VENT MODE T-TUBE
[2019-02-06] MEDS: ATROPINE SULFATE 1% OPHTH 2ML SL SCH ×2 (13:49→22:00)
[2019-02-07] VITALS (70 sets, daily range): BP systolic 93–150; BP diastolic 48–89
[2019-02-07] MEDS: ACETYLCYSTEINE 100MG/ML 10% VIAL 4ML INH SCH ×3 (00:20→15:35)
[2019-02-07] MEDS: IPRATROPIUM/ALBUTEROL 0.5-3(2.5)MG/3ML NEB HHN SCH ×6 (00:20→20:10)
[2019-02-07] MEDS: BLOOD SUGAR DIAGNOSTIC STRIP TEST SCH ×4 (00:43→18:04)
[2019-02-07] MEDS: PHENYTOIN SODIUM 100MG/2ML VIAL IV SCH ×3 (02:00→18:04)
[2019-02-07] MEDS: HYDRALAZINE HCL 50MG TABLET PO SCH ×3 (06:00→21:50)
[2019-02-07] MEDS: INSULIN LISPRO 100 UNITS/ML SUBCUT SCH ×4 (06:00→18:00)
[2019-02-07] MEDS: ATROPINE SULFATE 1% OPHTH 2ML SL SCH ×3 (06:21→21:54)
[2019-02-07] MEDS ORDERED: LIDOCAINE HCL 2% JELLY 5ML TOP NR (08:00)
[2019-02-07] MEDS: LACOSAMIDE 200 MG TABLET (VIMPAT) PO SCH ×2 (09:05→18:04)
[2019-02-07] MEDS: DOCUSATE SODIUM SUGAR FREE 100MG/10ML UDC PEG PRN ×2 (09:05→18:03)
[2019-02-07] MEDS: ASPIRIN 325MG EC TABLET PO SCH (09:05)
[2019-02-07] MEDS: MULTIVITAMINS,THER W-MINERALS TABLET GT SCH (09:05)
[2019-02-07] MEDS: LEVETIRACETAM 1,000 MG in SODIUM CHLORIDE 0.9% 100 ML IV SCH ×2 (10:03→21:52)
[2019-02-07] MEDS: AMLODIPINE 10MG TABLET PO SCH (10:05)
[2019-02-07] MEDS: METOPROLOL TARTRATE 25MG TABLET PO SCH ×2 (10:06→21:51)
[2019-02-07] MEDS: LISINOPRIL 20MG TABLET PO SCH ×2 (10:06→21:50)
[2019-02-07] MEDS: FAMOTIDINE 20MG/2ML VIAL IV SCH (10:19)
[2019-02-07] MEDS: MORPHINE SULFATE 2 MG/ML CPJ (NOT FOR IM USE) IV PRN (10:21)
[2019-02-07] MEDS ORDERED: MORPHINE SULFATE 250 MG in DEXT 5% WATER 240 ML IV PRN (12:00)
[2019-02-07] MEDS ORDERED: MORPHINE SULFATE 100 MG in DEXT 5% WATER 90 ML IV PRN (12:00)
[2019-02-07] MEDS ORDERED: RACEPINEPHRINE 2.25% 0.5ML NEB VIAL HHN PRN ×2 (12:15)
[2019-02-07] MEDS ORDERED: LIDOCAINE HCL/PF 1% 2ML VIAL ONE (13:16)
[2019-02-07 14:36] LABS: BG BASE EXCESS 3.3 mmol/L (-2.0-2.0); BG CARBOXYHEMOGLOBIN 0.6 % (0.5-1.5); BG DEOXYHEMOGLOBIN 1.8 % (0.0-5.0); BG FRACTION INSPIRED OXYGEN 35; BG HCO3 ACT 27.6 mmol/L (22.0-26.0); BG METHEMOGLOBIN 0.4 % (0.0-1.5); BG OXYGEN SATURATION 98.2 % (92.0-98.5); BG OXYHEMOGLOBIN 97.2 % (94.0-97.0); BG PCO2 40.7 mmHg (35.0-45.0); BG PH 7.449 (7.350-7.450); BG PO2 126.3 mmHg (75.0-100.0); BG SAMPLE SITE RIGHT RADIAL; BG TOTAL HEMOGLOBIN 9.4 g/dL (12.0-18.0); BG VENT MODE MASK - AEROSOL
[2019-02-07] MEDS ORDERED: MAGNESIUM HYDROXIDE 400MG/5ML 30ML UDC PO PRN (18:00)
[2019-02-07] MEDS: ACETAMINOPHEN 325MG TABLET PO PRN (18:03)
[2019-02-07] MEDS: ONDANSETRON HCL 4MG/2ML INJ IV PRN (18:04)
[2019-02-07] MEDS: EPOETIN ALFA 10000UNITS/ML VIAL SUBCUT SCH (22:01)
[2019-02-08] VITALS (35 sets, daily range): BP systolic 106–182; BP diastolic 51–95
[2019-02-08] MEDS: BLOOD SUGAR DIAGNOSTIC STRIP TEST SCH ×5 (00:44→23:25)
[2019-02-08] MEDS: ACETYLCYSTEINE 100MG/ML 10% VIAL 4ML INH SCH ×3 (00:50→15:17)
[2019-02-08] MEDS: DIPHENHYDRAMINE 50MG/ML VIAL IV PRN (00:51)
[2019-02-08] MEDS: IPRATROPIUM/ALBUTEROL 0.5-3(2.5)MG/3ML NEB HHN SCH ×6 (00:51→20:31)
[2019-02-08] MEDS: PHENYTOIN SODIUM 100MG/2ML VIAL IV SCH ×3 (02:47→18:24)
[2019-02-08] MEDS: CLONIDINE 0.1MG TABLET PO PRN ×2 (05:09→08:35)
[2019-02-08] MEDS: HYDRALAZINE HCL 50MG TABLET PO SCH ×3 (05:09→21:26)
[2019-02-08] MEDS: ATROPINE SULFATE 1% OPHTH 2ML SL SCH ×3 (05:11→21:27)
[2019-02-08] MEDS: INSULIN LISPRO 100 UNITS/ML SUBCUT SCH ×5 (05:21→23:25)
[2019-02-08 07:00] LABS: HEMATOCRIT. 24.9 % (42.0-52.0); HEMOGLOBIN. 7.9 g/dL (14.0-18.0); MEAN CORPUSCULAR HEMOGLOBIN 30.9 pg (28.0-32.0); MEAN CORPUSCULAR VOLUME 96.8 fL (80.0-94.0); MEAN PLATELET VOLUME 8.4 fl (7.4-10.4); PLATELET 423 x1000/uL (130-400); RED BLOOD CELL COUNT 2.57 mill/uL (4.7-6.1); RED CELL DISTRIBUTION WIDTH 20.9 % (11.6-14.6)
[2019-02-08] MEDS: FAMOTIDINE 20MG/2ML VIAL IV SCH (08:33)
[2019-02-08] MEDS: LISINOPRIL 20MG TABLET PO SCH ×2 (08:34→21:26)
[2019-02-08] MEDS: MULTIVITAMINS,THER W-MINERALS TABLET GT SCH (08:34)
[2019-02-08] MEDS: LACOSAMIDE 200 MG TABLET (VIMPAT) PO SCH ×2 (08:34→18:24)
[2019-02-08] MEDS: METOPROLOL TARTRATE 25MG TABLET PO SCH ×2 (08:34→21:25)
[2019-02-08] MEDS: ASPIRIN 325MG EC TABLET PO SCH (08:35)
[2019-02-08] MEDS: AMLODIPINE 10MG TABLET PO SCH (08:35)
[2019-02-08] MEDS: DOCUSATE SODIUM SUGAR FREE 100MG/10ML UDC PEG PRN ×2 (08:35→18:24)
[2019-02-08] MEDS: LEVETIRACETAM 1,000 MG in SODIUM CHLORIDE 0.9% 100 ML IV SCH ×2 (09:23→21:26)
[2019-02-08] MEDS: ONDANSETRON HCL 4MG/2ML INJ IV PRN (23:25)
[2019-02-09] VITALS (49 sets, daily range): BP systolic 123–168; BP diastolic 46–79
[2019-02-09] MEDS: ACETYLCYSTEINE 100MG/ML 10% VIAL 4ML INH SCH ×3 (00:24→12:11)
[2019-02-09] MEDS: IPRATROPIUM/ALBUTEROL 0.5-3(2.5)MG/3ML NEB HHN SCH ×6 (00:24→20:45)
[2019-02-09] MEDS: PHENYTOIN SODIUM 100MG/2ML VIAL IV SCH ×3 (01:03→17:18)
[2019-02-09] MEDS: MORPHINE SULFATE 2 MG/ML CPJ (NOT FOR IM USE) IV PRN (03:34)
[2019-02-09] MEDS: BLOOD SUGAR DIAGNOSTIC STRIP TEST SCH ×4 (05:39→23:38)
[2019-02-09] MEDS: INSULIN LISPRO 100 UNITS/ML SUBCUT SCH ×4 (05:39→23:38)
[2019-02-09] MEDS: ATROPINE SULFATE 1% OPHTH 2ML SL SCH ×3 (05:39→21:22)
[2019-02-09] MEDS: HYDRALAZINE HCL 50MG TABLET PO SCH ×3 (05:39→21:21)
[2019-02-09 06:39] LABS: HEMATOCRIT. 25.5 % (42.0-52.0); HEMOGLOBIN. 8.2 g/dL (14.0-18.0); MEAN CORPUSCULAR HEMOGLOBIN 31.4 pg (28.0-32.0); MEAN CORPUSCULAR VOLUME 97.7 fL (80.0-94.0); MEAN PLATELET VOLUME 7.9 fl (7.4-10.4); PLATELET 448 x1000/uL (130-400); RED BLOOD CELL COUNT 2.62 mill/uL (4.7-6.1); RED CELL DISTRIBUTION WIDTH 21.7 % (11.6-14.6)
[2019-02-09 07:10] LABS: PHOSPHORUS 2.5 mg/dL (2.5-4.9)
[2019-02-09] MEDS: LEVETIRACETAM 1,000 MG in SODIUM CHLORIDE 0.9% 100 ML IV SCH ×2 (08:24→21:20)
[2019-02-09] MEDS: METOPROLOL TARTRATE 25MG TABLET PO SCH ×2 (08:25→21:21)
[2019-02-09] MEDS: LISINOPRIL 20MG TABLET PO SCH ×2 (08:25→21:20)
[2019-02-09] MEDS: MULTIVITAMINS,THER W-MINERALS TABLET GT SCH (08:25)
[2019-02-09] MEDS: DOCUSATE SODIUM SUGAR FREE 100MG/10ML UDC PEG PRN ×2 (08:25→17:18)
[2019-02-09] MEDS: LACOSAMIDE 200 MG TABLET (VIMPAT) PO SCH ×2 (08:25→17:18)
[2019-02-09] MEDS: FAMOTIDINE 20MG/2ML VIAL IV SCH (08:25)
[2019-02-09] MEDS: AMLODIPINE 10MG TABLET PO SCH (08:26)
[2019-02-09] MEDS: ASPIRIN 325MG EC TABLET PO SCH (08:26)
[2019-02-09] MEDS: CLONIDINE 0.1MG TABLET PO PRN (08:38)
[2019-02-09 09:27] LABS: BG BASE EXCESS 0.5 mmol/L (-2.0-2.0); BG CARBOXYHEMOGLOBIN 0.7 % (0.5-1.5); BG DEOXYHEMOGLOBIN 1.3 % (0.0-5.0); BG FRACTION INSPIRED OXYGEN 36; BG HCO3 ACT 26.1 mmol/L (22.0-26.0); BG METHEMOGLOBIN 0.4 % (0.0-1.5); BG OXYGEN SATURATION 98.7 % (92.0-98.5); BG OXYHEMOGLOBIN 97.6 % (94.0-97.0); BG PCO2 47.3 mmHg (35.0-45.0); BG PO2 145.6 mmHg (75.0-100.0); BG SAMPLE SITE RIGHT RADIAL; BG TOTAL HEMOGLOBIN 8.3 g/dL (12.0-18.0); BG VENT MODE NASAL CANNULA
[2019-02-09 10:24] LABS: PLATELET ESTIMATE INCREASED
[2019-02-09 14:02] LABS: PLATELET ESTIMATE INCREASED
[2019-02-09] MEDS: ACETAMINOPHEN 325MG TABLET PO PRN (17:18)
[2019-02-10] VITALS (58 sets, daily range): BP systolic 90–169; BP diastolic 44–112
[2019-02-10] MEDS: IPRATROPIUM/ALBUTEROL 0.5-3(2.5)MG/3ML NEB HHN SCH ×6 (00:23→20:34)
[2019-02-10] MEDS: PHENYTOIN SODIUM 100MG/2ML VIAL IV SCH ×3 (01:25→17:24)
[2019-02-10] MEDS: INSULIN LISPRO 100 UNITS/ML SUBCUT SCH ×4 (05:27→20:46)
[2019-02-10] MEDS: ATROPINE SULFATE 1% OPHTH 2ML SL SCH (05:27)
[2019-02-10] MEDS: HYDRALAZINE HCL 50MG TABLET PO SCH ×3 (05:27→21:15)
[2019-02-10] MEDS: BLOOD SUGAR DIAGNOSTIC STRIP TEST SCH ×4 (05:28→20:29)
[2019-02-10 06:15] LABS: HEMATOCRIT. 25.9 % (42.0-52.0); HEMOGLOBIN. 8.3 g/dL (14.0-18.0); MEAN CORPUSCULAR HEMOGLOBIN 31.4 pg (28.0-32.0); MEAN CORPUSCULAR VOLUME 98.1 fL (80.0-94.0); MEAN PLATELET VOLUME 7.8 fl (7.4-10.4); PLATELET 432 x1000/uL (130-400); RED BLOOD CELL COUNT 2.64 mill/uL (4.7-6.1); RED CELL DISTRIBUTION WIDTH 21.2 % (11.6-14.6)
[2019-02-10] MEDS: MULTIVITAMINS,THER W-MINERALS TABLET GT SCH (08:40)
[2019-02-10] MEDS: LACOSAMIDE 200 MG TABLET (VIMPAT) PO SCH ×2 (08:40→17:24)
[2019-02-10] MEDS: ASPIRIN 325MG EC TABLET PO SCH (08:40)
[2019-02-10] MEDS: LISINOPRIL 20MG TABLET PO SCH ×2 (08:40→20:46)
[2019-02-10] MEDS: LEVETIRACETAM 1,000 MG in SODIUM CHLORIDE 0.9% 100 ML IV SCH ×3 (08:41→21:15)
[2019-02-10] MEDS: FAMOTIDINE 20MG/2ML VIAL IV SCH (08:41)
[2019-02-10] MEDS: AMLODIPINE 10MG TABLET PO SCH (08:41)
[2019-02-10] MEDS: METOPROLOL TARTRATE 25MG TABLET PO SCH ×2 (08:41→20:45)
[2019-02-10] MEDS: DOCUSATE SODIUM SUGAR FREE 100MG/10ML UDC PEG PRN (08:41)
[2019-02-10] MEDS: ACETAMINOPHEN 325MG TABLET PO PRN ×2 (09:58→20:44)
[2019-02-10] MEDS: ACETYLCYSTEINE 100MG/ML 10% VIAL 4ML INH SCH (15:34)
[2019-02-10 17:10] LABS: PLATELET ESTIMATE INCREASED
[2019-02-10] MEDS: EPOETIN ALFA 10000UNITS/ML VIAL SUBCUT SCH (20:44)
[2019-02-10] MEDS ORDERED: EPOETIN ALFA 10000UNITS/ML VIAL SUBCUT SCH (21:00)
[2019-02-11] VITALS (15 sets, daily range): BP systolic 118–160; BP diastolic 43–103
[2019-02-11] MEDS: IPRATROPIUM/ALBUTEROL 0.5-3(2.5)MG/3ML NEB HHN SCH ×6 (00:34→20:55)
[2019-02-11] MEDS: ACETYLCYSTEINE 100MG/ML 10% VIAL 4ML INH SCH ×3 (00:35→15:57)
[2019-02-11] MEDS: PHENYTOIN SODIUM 100MG/2ML VIAL IV SCH ×3 (01:10→17:28)
[2019-02-11] MEDS: BLOOD SUGAR DIAGNOSTIC STRIP TEST SCH ×4 (06:13→20:26)
[2019-02-11] MEDS: INSULIN LISPRO 100 UNITS/ML SUBCUT SCH ×4 (06:13→20:26)
[2019-02-11 06:23] LABS: HEMATOCRIT. 25.1 % (42.0-52.0); HEMOGLOBIN. 8.3 g/dL (14.0-18.0); MEAN CORPUSCULAR VOLUME 97.4 fL (80.0-94.0); MEAN PLATELET VOLUME 7.4 fl (7.4-10.4); PLATELET 410 x1000/uL (130-400); RED BLOOD CELL COUNT 2.58 mill/uL (4.7-6.1); RED CELL DISTRIBUTION WIDTH 21.6 % (11.6-14.6)
[2019-02-11] MEDS: HYDRALAZINE HCL 50MG TABLET PO SCH ×3 (06:41→22:09)
[2019-02-11] MEDS: LISINOPRIL 20MG TABLET PO SCH ×2 (08:16→22:10)
[2019-02-11] MEDS: METOPROLOL TARTRATE 25MG TABLET PO SCH ×2 (08:17→22:10)
[2019-02-11] MEDS: AMLODIPINE 10MG TABLET PO SCH (08:17)
[2019-02-11] MEDS: MULTIVITAMINS,THER W-MINERALS TABLET GT SCH (08:18)
[2019-02-11] MEDS: LEVETIRACETAM 1,000 MG in SODIUM CHLORIDE 0.9% 100 ML IV SCH ×2 (08:18→22:09)
[2019-02-11] MEDS: ASPIRIN 325MG EC TABLET PO SCH (08:18)
[2019-02-11] MEDS: FAMOTIDINE 20MG/2ML VIAL IV SCH (08:18)
[2019-02-11] MEDS: ONDANSETRON HCL 4MG/2ML INJ IV PRN (08:46)
[2019-02-11] MEDS: LACOSAMIDE 200 MG TABLET (VIMPAT) PO SCH ×2 (11:20→17:30)
[2019-02-11 17:38] LABS: PLATELET ESTIMATE INCREASED
[2019-02-12] VITALS (17 sets, daily range): BP systolic 126–171; BP diastolic 28–90
[2019-02-12] MEDS: IPRATROPIUM/ALBUTEROL 0.5-3(2.5)MG/3ML NEB HHN SCH ×6 (01:25→23:59)
[2019-02-12] MEDS: ACETYLCYSTEINE 100MG/ML 10% VIAL 4ML INH SCH ×4 (01:25→23:59)
[2019-02-12] MEDS: PHENYTOIN SODIUM 100MG/2ML VIAL IV SCH ×3 (02:19→17:08)
[2019-02-12] MEDS: HYDRALAZINE HCL 50MG TABLET PO SCH ×3 (06:24→22:54)
[2019-02-12] MEDS: BLOOD SUGAR DIAGNOSTIC STRIP TEST SCH ×4 (06:30→21:00)
[2019-02-12] MEDS: INSULIN LISPRO 100 UNITS/ML SUBCUT SCH ×4 (06:30→21:00)
[2019-02-12] MEDS ORDERED: CINACALCET HCL 30MG TABLET PO SCH (07:30)
[2019-02-12] MEDS: FAMOTIDINE 20MG/2ML VIAL IV SCH (08:27)
[2019-02-12] MEDS: LACOSAMIDE 200 MG TABLET (VIMPAT) PO SCH ×3 (08:28→22:54)
[2019-02-12] MEDS: MULTIVITAMINS,THER W-MINERALS TABLET GT SCH (08:28)
[2019-02-12] MEDS: METOPROLOL TARTRATE 25MG TABLET PO SCH ×2 (08:30→22:53)
[2019-02-12] MEDS: LISINOPRIL 20MG TABLET PO SCH ×2 (08:31→22:54)
[2019-02-12] MEDS: ASPIRIN 325MG EC TABLET PO SCH (08:31)
[2019-02-12 09:01] LABS: PHOSPHORUS 2.9 mg/dL (2.5-4.9)
[2019-02-12] MEDS: LEVETIRACETAM 1,000 MG in SODIUM CHLORIDE 0.9% 100 ML IV SCH ×3 (09:10→22:53)
[2019-02-12] MEDS: DOCUSATE SODIUM SUGAR FREE 100MG/10ML UDC PEG PRN (09:59)
[2019-02-12 12:26] LABS: BG BASE EXCESS -0.2 mmol/L (-2.0-2.0); BG CARBOXYHEMOGLOBIN 0.4 % (0.5-1.5); BG DEOXYHEMOGLOBIN 6.7 % (0.0-5.0); BG HCO3 ACT 24.3 mmol/L (22.0-26.0); BG OXYGEN SATURATION 93.3 % (92.0-98.5); BG OXYHEMOGLOBIN 92.9 % (94.0-97.0); BG PCO2 39.1 mmHg (35.0-45.0); BG PH 7.412 (7.350-7.450); BG PO2 67.8 mmHg (75.0-100.0); BG SAMPLE SITE RIGHT RADIAL; BG TOTAL HEMOGLOBIN 9.2 g/dL (12.0-18.0); BG VENT MODE ROOM AIR
[2019-02-12] MEDS: EPOETIN ALFA 10000UNITS/ML VIAL SUBCUT SCH (22:51)
[2019-02-12] MEDS: CINACALCET HCL 30MG TABLET PO SCH (22:54)
[2019-02-13] VITALS (12 sets, daily range): BP systolic 120–171; BP diastolic 56–83
[2019-02-13] MEDS: PHENYTOIN SODIUM 100MG/2ML VIAL IV SCH ×3 (04:47→17:00)
[2019-02-13] MEDS: IPRATROPIUM/ALBUTEROL 0.5-3(2.5)MG/3ML NEB HHN SCH ×5 (05:05→20:00)
[2019-02-13] MEDS: HYDRALAZINE HCL 50MG TABLET PO SCH ×3 (05:59→21:39)
[2019-02-13] MEDS: BLOOD SUGAR DIAGNOSTIC STRIP TEST SCH ×4 (06:50→21:00)
[2019-02-13] MEDS: INSULIN LISPRO 100 UNITS/ML SUBCUT SCH ×4 (06:50→21:00)
[2019-02-13 07:20] LABS: HEMATOCRIT. 25.5 % (42.0-52.0); HEMOGLOBIN. 8.1 g/dL (14.0-18.0); MEAN CORPUSCULAR HEMOGLOBIN 31.5 pg (28.0-32.0); MEAN CORPUSCULAR VOLUME 98.9 fL (80.0-94.0); MEAN PLATELET VOLUME 8.1 fl (7.4-10.4); PLATELET 375 x1000/uL (130-400); RED BLOOD CELL COUNT 2.57 mill/uL (4.7-6.1); RED CELL DISTRIBUTION WIDTH 22.1 % (11.6-14.6)
[2019-02-13] MEDS: ACETYLCYSTEINE 100MG/ML 10% VIAL 4ML INH SCH ×2 (08:54→15:42)
[2019-02-13] MEDS ORDERED: PAMIDRONATE DISODIUM 60 MG in SODIUM CHLORIDE 0.9% 500 ML IV NR (09:00)
[2019-02-13] MEDS: AMLODIPINE 10MG TABLET PO SCH ×2 (09:00→09:10)
[2019-02-13] MEDS: ASPIRIN 325MG EC TABLET PO SCH (09:08)
[2019-02-13] MEDS: LACOSAMIDE 200 MG TABLET (VIMPAT) PO SCH ×2 (09:09→17:00)
[2019-02-13] MEDS: METOPROLOL TARTRATE 25MG TABLET PO SCH ×2 (09:10→21:40)
[2019-02-13] MEDS: FAMOTIDINE 20MG/2ML VIAL IV SCH (09:10)
[2019-02-13] MEDS: MULTIVITAMINS,THER W-MINERALS TABLET GT SCH (09:10)
[2019-02-13] MEDS: LISINOPRIL 20MG TABLET PO SCH ×2 (09:10→21:39)
[2019-02-13] MEDS: LEVETIRACETAM 1,000 MG in SODIUM CHLORIDE 0.9% 100 ML IV SCH ×2 (09:11→21:40)
[2019-02-13 10:37] LABS: PLATELET ESTIMATE NORMAL
[2019-02-13] MEDS: CINACALCET HCL 30MG TABLET PO SCH (19:00)
[2019-02-14] VITALS (8 sets, daily range): BP systolic 149–191; BP diastolic 73–147
[2019-02-14] MEDS: ACETYLCYSTEINE 100MG/ML 10% VIAL 4ML INH SCH ×3 (01:14→15:45)
[2019-02-14] MEDS: IPRATROPIUM/ALBUTEROL 0.5-3(2.5)MG/3ML NEB HHN SCH ×5 (01:15→15:45)
[2019-02-14] MEDS: PHENYTOIN SODIUM 100MG/2ML VIAL IV SCH ×2 (02:00→10:58)
[2019-02-14] MEDS: DIPHENHYDRAMINE 50MG/ML VIAL IV PRN (04:46)
[2019-02-14] MEDS: HYDRALAZINE HCL 50MG TABLET PO SCH ×2 (05:45→14:00)
[2019-02-14] MEDS: BLOOD SUGAR DIAGNOSTIC STRIP TEST SCH ×2 (06:50→11:49)
[2019-02-14] MEDS: MULTIVITAMINS,THER W-MINERALS TABLET GT SCH (09:00)
[2019-02-14] MEDS: FAMOTIDINE 20MG/2ML VIAL IV SCH (09:01)
[2019-02-14] MEDS: INSULIN LISPRO 100 UNITS/ML SUBCUT SCH ×2 (09:02→11:49)
[2019-02-14] MEDS: AMLODIPINE 10MG TABLET PO SCH (09:02)
[2019-02-14] MEDS: METOPROLOL TARTRATE 25MG TABLET PO SCH (09:03)
[2019-02-14] MEDS: LACOSAMIDE 200 MG TABLET (VIMPAT) PO SCH ×3 (09:03→16:07)
[2019-02-14] MEDS: ASPIRIN 325MG EC TABLET PO SCH (09:03)
[2019-02-14] MEDS: LISINOPRIL 20MG TABLET PO SCH (09:03)
[2019-02-14] MEDS: LEVETIRACETAM 1,000 MG in SODIUM CHLORIDE 0.9% 100 ML IV SCH ×2 (09:07→15:16)
[2019-02-17] MEDS ORDERED: LACOSAMIDE 100 MG TABLET PO SCH (22:00)
== END 2019-02-14 16:35 | disposition left against medical advice (07) | DRG 870 ==
LOC: ER 18:01 → 5EST 19:13 → SUPCPDRO 19:16 → EDBEDREQSVC 19:17 → EDBEDREQ 19:17 → ENRESERV 01-27 07:07 → 3WST 02-11 01:45
PROVIDERS: ADMIT Pain Medicine Interventional Pain Medicine; ATTEND Internal Medicine
PROC: 5A1955Z Respiratory Ventilation, Greater than 96 Consecutive Hours (ICD-10-PCS; principal; 2019-01-26)
PROC: 0BH17EZ Insertion of Endotracheal Airway into Trachea, Via Natural or Artificial Opening (ICD-10-PCS; 2019-01-26)
PROC: 4A00X4Z Measurement of Central Nervous Electrical Activity, External Approach (ICD-10-PCS; 2019-01-29)
PROC: 30233N1 Transfusion of Nonautologous Red Blood Cells into Peripheral Vein, Percutaneous Approach (ICD-10-PCS; 2019-01-31)
PROC: 5A1D70Z Performance of Urinary Filtration, Intermittent, Less than 6 Hours Per Day (ICD-10-PCS; 2019-02-01)
PROC: 5A1D70Z Performance of Urinary Filtration, Intermittent, Less than 6 Hours Per Day (ICD-10-PCS; 2019-02-09)
PROC: 5A09357 Assistance with Respiratory Ventilation, Less than 24 Consecutive Hours, Continuous Positive Airway Pressure (ICD-10-PCS; 2019-02-12)
DX: A41.52 Sepsis due to Pseudomonas (principal); J96.00 Acute respiratory failure, unspecified whether with hypoxia or hypercapnia; E43 Unspecified severe protein-calorie malnutrition; N18.6 End stage renal disease; J69.0 Pneumonitis due to inhalation of food and vomit; E87.1 Hypo-osmolality and hyponatremia; G93.40 Encephalopathy, unspecified; I12.0 Hypertensive chronic kidney disease with stage 5 chronic kidney disease or end stage renal disease; D62 Acute posthemorrhagic anemia; N25.81 Secondary hyperparathyroidism of renal origin; I69.354 Hemiplegia and hemiparesis following cerebral infarction affecting left non-dominant side; G40.901 Epilepsy, unspecified, not intractable, with status epilepticus; E87.5 Hyperkalemia; E10.51 Type 1 diabetes mellitus with diabetic peripheral angiopathy without gangrene; D63.8 Anemia in other chronic diseases classified elsewhere; Z99.2 Dependence on renal dialysis; D32.9 Benign neoplasm of meninges, unspecified; E10.22 Type 1 diabetes mellitus with diabetic chronic kidney disease; E83.52 Hypercalcemia; J44.9 Chronic obstructive pulmonary disease, unspecified; R13.10 Dysphagia, unspecified; Z78.1 Physical restraint status; Z51.5 Encounter for palliative care; Z79.4 Long term (current) use of insulin; Z79.899 Other long term (current) drug therapy; Z86.011 Personal history of benign neoplasm of the brain; Z88.2 Allergy status to sulfonamides; Z87.01 Personal history of pneumonia (recurrent); Z88.0 Allergy status to penicillin; Z68.23 Body mass index [BMI] 23.0-23.9, adult
CPT/HCPCS: 36415; 36600; 70496; 70498; 70551; 71045; 80048; 80061; 80185; 80202; 80305; 80320; 80339; 81003; 82040; 82140; 82270; 82310; 82375; 82550; 82553; 82805; 82962; 83036; 83721; 83735; 83970; 84100; 84443; 84478; 84484; 85027; 85044; 86850; 86900; 86920; 87070; 87077; 87186; 92610; 93005; 93306; 93923; 93970; 93971; 94002; 94003; 94640; 94660; 94667; 97162; 99291; A6261; C1893; C9113; J0692; J0885; J1165; J1200; J1650; J1815; J1953; J2060; J2270; J2405; J2430; J2704; J3370; J3490; J7040; J7050; J7060; J7608; J7620; P9021; Q9967; A4315; G0480

== ENCOUNTER 2019-06-18 07:30 | Inpatient (IN) | payer MEDICARE, MEDICAID ==
[~2019-06-18] VITALS: Ht 167.6 cm; Wt 68.9 kg
[~2019-06-18 07:30] MED LIST changes: -AMLO10TA80 PO; -AMLO5TAB88 MT; +ASPI-1497 PO; +ATOR40TA70 MT; -CLON1PAT10 TD; +CLON1PAT11 TP; -DIPH1TAB24 MT; -ESOM40CA53 PO; -FURO-151 PO; -FURO40TA5 PO; +HYDR-4135 MT; +KEPP500 MT; +KEPPSOL MT; +LACO100T2 PO; +LACT10SO PO; -LEVE500T19 PO; -LORA1TAB PO; -METO-539 PO; +METO100T16 MT; +NEPVIT MT; +NIFE90TA60 PO; +NUT.237L82 PO; -OMEP10SU2 PO; +OMEP20CA14 PO; +ONDA4TAB11 PO; +PHEN50TA2 PO; -PIOG30TA70 PO; +TOPUD PO; -TRAM-529 PO
[2019-06-18] MEDS ORDERED: ONDANSETRON HCL 4MG/2ML INJ IV STA (07:55)
[2019-06-18] MEDS ORDERED: LABETALOL 5MG/ML SYR 20 MG/4 ML SYRINGE IV ONE (08:00)
[2019-06-18] MEDS ORDERED: LEVETIRACETAM 1000MG/100ML 100 ML IV ONE (08:00)
[2019-06-18 08:23] LABS: EOSINOPHILS % 3.1 % (0.0-5.0); HEMATOCRIT. 35.3 % (42.0-52.0); HEMOGLOBIN. 11.6 g/dL (14.0-18.0); LYMPHOCYTES % 8.2 % (20.0-50.0); MEAN CORPUSCULAR HEMOGLOBIN 29.6 pg (28.0-32.0); MEAN CORPUSCULAR VOLUME 90.4 fL (80.0-94.0); MEAN PLATELET VOLUME 6.8 fl (7.4-10.4); MONOCYTES % 6.1 % (2.0-8.0); NEUTROPHILS % 81.6 % (40.0-76.0); PLATELET 471 x1000/uL (130-400); RED CELL DISTRIBUTION WIDTH 25.1 % (11.6-14.6)
[2019-06-18 08:30] LABS: CHLORIDE 98 mEq/L (98-107)
[2019-06-18 08:34] LABS: ETHANOL BLOOD < 10 mg/dL
[2019-06-18] MEDS ORDERED: LORAZEPAM 2MG/ML CPJ IV ONE (08:45)
[2019-06-18] MEDS ORDERED: VALPROATE SODIUM 500 MG in SODIUM CHLORIDE 0.9% 100 ML IV STA (08:47)
[2019-06-18] MEDS ORDERED: LORAZEPAM 2MG/ML CPJ ONE (08:49)
[2019-06-18] MEDS ORDERED: VALPROATE SODIUM 1,000 MG in SODIUM CHLORIDE 0.9% 100 ML IV NR (09:00)
[2019-06-18 09:06] LABS: PHOSPHORUS 3.2 mg/dL (2.5-4.9)
[2019-06-18 09:24] LABS: PLATELET ESTIMATE INCREASED
[2019-06-18] MEDS ORDERED: NICARDIPINE 40MG/200ML PREMIX 200 ML IV STA (10:16)
[2019-06-18 10:48] LABS: CLARITY URINE CLEAR (CLEAR); COLOR URINE YELLOW (YELLOW); KETONES URINE NEGATIVE (NEGATIVE); LEUKOCYTE ESTERASE URINE NEGATIVE (NEGATIVE); NITRITE URINE NEGATIVE (NEGATIVE); OCCULT BLOOD URINE 1+ (NEGATIVE); PH URINE >=9.0 (4.5-8.0); PROTEIN URINE 3+ (NEGATIVE); SPECIFIC GRAVITY URINE 1.011 (1.005-1.030); UROBILINOGEN URINE 0.2 E.U./dL (0.2-1.0)
[2019-06-18 11:40] LABS: METHADONE URINE SCREEN NEGATIVE (NEGATIVE)
[2019-06-18 11:41] LABS: *AMPHETAMINES SCREEN URINE NEGATIVE (NEGATIVE); OPIATES URINE SCREEN NEGATIVE (NEGATIVE)
[2019-06-18 11:42] LABS: *BARBITURATES SCREEN URINE NEGATIVE (NEGATIVE); *COCAINE SCREEN URINE NEGATIVE (NEGATIVE); PHENCYCLIDINE URINE SCREEN NEGATIVE (NEGATIVE)
[2019-06-18 11:43] LABS: *BENZODIAZEPINES SCREEN URINE NEGATIVE (NEGATIVE)
[2019-06-18 11:51] LABS: CANNABINOID URINE SCREEN NEGATIVE (NEGATIVE)
[2019-06-18 16:38] LABS: PROTHROMBIN TIME 42.2 sec (9.6-11.0)
[2019-06-18 16:40] LABS: INR 4.4; PARTIAL THROMBOPLASTIN TIME 76.5 sec (23.4-31.0)
[2019-06-18] MEDS ORDERED: IPRATROPIUM/ALBUTEROL 0.5-3(2.5)MG/3ML NEB HHN ONE (23:15)
[2019-06-18] MEDS ORDERED: LEVETIRACETAM 500MG PREMIX 100 ML IV ONE (23:15)
[2019-06-19] VITALS (9 sets, daily range): BP systolic 111–170; BP diastolic 42–80
[2019-06-19] MEDS ORDERED: TRAMADOL 50MG TABLET PO PRN (06:46)
[2019-06-19] MEDS ORDERED: TRAMADOL 50MG TABLET PO ONE (07:00)
[2019-06-19] MEDS: LOSARTAN POTASSIUM 50 MG TABLET PO SCH ×2 (07:00→21:30)
[2019-06-19] MEDS ORDERED: LEVETIRACETAM 100MG/ML ORAL SYR PO ONE (07:00)
[2019-06-19] MEDS ORDERED: LOSARTAN POTASSIUM 50 MG TABLET PO ONE (07:00)
[2019-06-19] MEDS: SEVELAMER CARBONATE 800 MG TABLET PO SCH ×3 (08:22→18:00)
[2019-06-19] MEDS ORDERED: LEVETIRACETAM 500MG TABLET PO SCH (09:00)
[2019-06-19] MEDS: ONDANSETRON HCL 4MG/2ML INJ IV PRN ×2 (09:28→23:39)
[2019-06-19] MEDS: AMLODIPINE 10MG TABLET PO SCH (09:29)
[2019-06-19] MEDS: VIMPAT 100 MG PO SCH ×2 (12:30→21:33)
[2019-06-19] MEDS: HYDRALAZINE HCL 50MG TABLET PO SCH ×2 (14:00→22:31)
[2019-06-19 16:04] LABS: HEMATOCRIT. 35.5 % (42.0-52.0); HEMOGLOBIN. 11.4 g/dL (14.0-18.0); MEAN CORPUSCULAR HEMOGLOBIN 29.6 pg (28.0-32.0); MEAN CORPUSCULAR VOLUME 91.8 fL (80.0-94.0); MEAN PLATELET VOLUME 7.2 fl (7.4-10.4); PLATELET 342 x1000/uL (130-400); RED BLOOD CELL COUNT 3.86 mill/uL (4.7-6.1); RED CELL DISTRIBUTION WIDTH 25.4 % (11.6-14.6)
[2019-06-19 16:21] LABS: BG BASE EXCESS 5.9 mmol/L (-2.0-2.0); BG CARBOXYHEMOGLOBIN 0.9 % (0.5-1.5); BG DEOXYHEMOGLOBIN 5.9 % (0.0-5.0); BG FRACTION INSPIRED OXYGEN 21; BG HCO3 ACT 30.2 mmol/L (22.0-26.0); BG OXYHEMOGLOBIN 93.2 % (94.0-97.0); BG PCO2 42.3 mmHg (35.0-45.0); BG PH 7.471 (7.350-7.450); BG PO2 68.5 mmHg (75.0-100.0); BG SAMPLE SITE RIGHT BRACHIAL; BG TOTAL HEMOGLOBIN 11.1 g/dL (12.0-18.0); BG VENT MODE ROOM AIR
[2019-06-19 16:26] LABS: CHLORIDE 102 mEq/L (98-107)
[2019-06-19] MEDS ORDERED: IPRATROPIUM/ALBUTEROL 0.5-3(2.5)MG/3ML NEB HHN PRN (17:30)
[2019-06-19] MEDS ORDERED: BISACODYL 10MG SUPP PR PRN (17:30)
[2019-06-19] MEDS ORDERED: LEVETIRACETAM 250MG TABLET PO PRN (18:00)
[2019-06-19 18:49] LABS: PLATELET ESTIMATE NORMAL
[2019-06-19] MEDS ORDERED: LEVOFLOXACIN 250MG PREMIX 50 ML IV SCH (20:00)
[2019-06-19] MEDS ORDERED: LEVETIRACETAM 1000MG/100ML 100 ML IV SCH (21:00)
[2019-06-19] MEDS: TRAMADOL 50MG TABLET PO PRN (21:31)
[2019-06-19 22:24] LABS: PROTHROMBIN TIME 42.6 sec (9.6-11.0)
[2019-06-19 22:30] LABS: INR 4.4
[2019-06-20] VITALS (11 sets, daily range): BP systolic 125–165; BP diastolic 57–100
[2019-06-20] MEDS ORDERED: ACETAMINOPHEN 325MG TABLET PO PRN (00:15)
[2019-06-20] MEDS: HYDRALAZINE HCL 50MG TABLET PO SCH ×2 (05:07→13:12)
[2019-06-20 05:57] LABS: EOSINOPHILS % 1.6 % (0.0-5.0); HEMATOCRIT. 28.1 % (42.0-52.0); HEMOGLOBIN. 9.1 g/dL (14.0-18.0); LYMPHOCYTES % 7.6 % (20.0-50.0); MEAN CORPUSCULAR HEMOGLOBIN 29.3 pg (28.0-32.0); MEAN CORPUSCULAR VOLUME 90.7 fL (80.0-94.0); MONOCYTES % 9.3 % (2.0-8.0); NEUTROPHILS % 80.5 % (40.0-76.0); PLATELET 311 x1000/uL (130-400); RED BLOOD CELL COUNT 3.09 mill/uL (4.7-6.1); RED CELL DISTRIBUTION WIDTH 24.8 % (11.6-14.6)
[2019-06-20 06:06] LABS: PROTHROMBIN TIME 29.5 sec (9.6-11.0)
[2019-06-20] MEDS: LEVETIRACETAM 1,000 MG in SODIUM CHLORIDE 0.9% 100 ML IV SCH (09:43)
[2019-06-20] MEDS: LOSARTAN POTASSIUM 50 MG TABLET PO SCH (09:44)
[2019-06-20] MEDS: SEVELAMER CARBONATE 800 MG TABLET PO SCH ×3 (09:44→18:01)
[2019-06-20] MEDS: AMLODIPINE 10MG TABLET PO SCH (09:44)
[2019-06-20] MEDS: VIMPAT 100 MG PO SCH ×2 (09:45→20:58)
[2019-06-20] MEDS: HYDRALAZINE 20MG/ML VIAL IV PRN ×4 (12:47→23:10)
[2019-06-20] MEDS ORDERED: HYDRALAZINE HCL 50MG TABLET PO SCH (14:00)
[2019-06-20] MEDS: ONDANSETRON HCL 4MG/2ML INJ IV PRN (16:04)
[2019-06-20] MEDS ORDERED: LORAZEPAM 2MG/ML CPJ IM PRN (17:30)
[2019-06-20] MEDS ORDERED: LORAZEPAM 2MG/ML CPJ IV PRN (17:37)
[2019-06-20] MEDS: METOPROLOL TARTRATE 50MG TABLET PO SCH (20:57)
[2019-06-20] MEDS: HYDRALAZINE HCL 100MG TABLET PO SCH (22:00)
[2019-06-20] MEDS: TRAMADOL 50MG TABLET PO PRN (23:10)
[2019-06-21] VITALS (25 sets, daily range): BP systolic 122–170; BP diastolic 52–96
[2019-06-21] MEDS: LEVETIRACETAM 1,000 MG in SODIUM CHLORIDE 0.9% 100 ML IV SCH ×3 (00:33→20:25)
[2019-06-21] MEDS: ONDANSETRON HCL 4MG/2ML INJ IV PRN (01:34)
[2019-06-21] MEDS: HYDRALAZINE HCL 100MG TABLET PO SCH ×3 (06:00→20:26)
[2019-06-21] MEDS: SEVELAMER CARBONATE 800 MG TABLET PO SCH ×3 (08:27→18:30)
[2019-06-21] MEDS: NIFEDIPINE XL 90MG TAB PO SCH (09:00)
[2019-06-21] MEDS: METOPROLOL TARTRATE 50MG TABLET PO SCH ×2 (09:00→20:27)
[2019-06-21] MEDS: PHENYTOIN 100 MG/4 ML UDC PO SCH (09:00)
[2019-06-21] MEDS: VIMPAT 100 MG PO SCH ×2 (09:00→20:26)
[2019-06-21 09:03] LABS: BASOPHILS % 0.7 % (0.0-2.0); EOSINOPHILS % 2.4 % (0.0-5.0); HEMATOCRIT. 26.8 % (42.0-52.0); HEMOGLOBIN. 8.9 g/dL (14.0-18.0); LYMPHOCYTES % 7.4 % (20.0-50.0); MEAN CORPUSCULAR HEMOGLOBIN 29.9 pg (28.0-32.0); MEAN CORPUSCULAR VOLUME 90.6 fL (80.0-94.0); MEAN PLATELET VOLUME 6.9 fl (7.4-10.4); MONOCYTES % 10.8 % (2.0-8.0); NEUTROPHILS % 78.7 % (40.0-76.0); PLATELET 257 x1000/uL (130-400); RED BLOOD CELL COUNT 2.96 mill/uL (4.7-6.1); RED CELL DISTRIBUTION WIDTH 24.2 % (11.6-14.6)
[2019-06-21 09:21] LABS: INR 1.5
[2019-06-21] MEDS ORDERED: WARFARIN SODIUM 2.5MG TABLET PO SCH (18:00)
[2019-06-21] MEDS ORDERED: PHENYTOIN 100 MG/4 ML UDC PO SCH (21:00)
[2019-06-22] VITALS (9 sets, daily range): BP systolic 125–165; BP diastolic 54–94
[2019-06-22 06:14] LABS: HEMATOCRIT 30.3 % (42.0-52.0); HEMOGLOBIN 9.8 g/dL (14.0-18.0); MEAN CORPUSCULAR HEMOGLOBIN 29.3 pg (28.0-32.0); MEAN CORPUSCULAR VOLUME 90.6 fL (80.0-94.0); PLATELET 290 x1000/uL (130-400); RED BLOOD CELL COUNT 3.34 mill/uL (4.7-6.1); RED CELL DISTRIBUTION WIDTH 24.1 % (11.6-14.6)
[2019-06-22] MEDS: HYDRALAZINE HCL 100MG TABLET PO SCH ×3 (07:18→21:58)
[2019-06-22 07:29] LABS: INR 1.2; PROTHROMBIN TIME 12.3 sec (9.6-11.0)
[2019-06-22] MEDS: LEVETIRACETAM 1,000 MG in SODIUM CHLORIDE 0.9% 100 ML IV SCH (09:17)
[2019-06-22] MEDS: SEVELAMER CARBONATE 800 MG TABLET PO SCH ×3 (09:18→18:11)
[2019-06-22] MEDS: NIFEDIPINE XL 90MG TAB PO SCH (09:19)
[2019-06-22] MEDS: PHENYTOIN 100 MG/4 ML UDC PO SCH (09:19)
[2019-06-22] MEDS: METOPROLOL TARTRATE 50MG TABLET PO SCH (09:19)
[2019-06-22] MEDS: VIMPAT 100 MG PO SCH (09:20)
[2019-06-22] MEDS ORDERED: CLONIDINE HCL 0.3MG/24HR PATCH TD SCH (14:00)
[2019-06-22] MEDS ORDERED: APIXABAN 5 MG TABLET PO NR (17:45)
[2019-06-22] MEDS ORDERED: WARFARIN SODIUM 2.5MG TABLET PO NR (18:00)
[2019-06-22] MEDS ORDERED: PHENYTOIN SODIUM EXTENDED 100MG CAPSULE PO SCH ×2 (19:18→19:20)
[2019-06-22] MEDS ORDERED: METOPROLOL TARTRATE 100MG TABLET PO SCH (21:00)
[2019-06-23] MEDS ORDERED: EPOETIN ALFA 4000UNITS/ML VIAL SUBCUT SCH (21:00)
== END 2019-06-22 22:45 | disposition home health service (06) | DRG 100 ==
LOC: ER 07:30 → EDBEDREQSVC 10:32 → EDBEDREQ 10:32 → EDBEDREQSVC 16:21 → ENRESERV 06-19 07:39 → 5EST 06-19 08:21 → 6WST 06-22 11:05
PROVIDERS: ADMIT Ophthalmology; ATTEND Ophthalmology
PROC: 05H733Z Insertion of Infusion Device into Right Axillary Vein, Percutaneous Approach (ICD-10-PCS; principal; 2019-06-18)
PROC: B54MZZA Ultrasonography of Right Upper Extremity Veins, Guidance (ICD-10-PCS; 2019-06-18)
PROC: 5A1D70Z Performance of Urinary Filtration, Intermittent, Less than 6 Hours Per Day (ICD-10-PCS; 2019-06-19)
PROC: 4A00X4Z Measurement of Central Nervous Electrical Activity, External Approach (ICD-10-PCS; 2019-06-22)
DX: G40.409 Other generalized epilepsy and epileptic syndromes, not intractable, without status epilepticus (principal); N18.6 End stage renal disease; E43 Unspecified severe protein-calorie malnutrition; J69.0 Pneumonitis due to inhalation of food and vomit; I21.4 Non-ST elevation (NSTEMI) myocardial infarction; I12.0 Hypertensive chronic kidney disease with stage 5 chronic kidney disease or end stage renal disease; D68.9 Coagulation defect, unspecified; I16.1 Hypertensive emergency; I82.721 Chronic embolism and thrombosis of deep veins of right upper extremity; D62 Acute posthemorrhagic anemia; I67.82 Cerebral ischemia; T42.0X5A Adverse effect of hydantoin derivatives, initial encounter; E11.22 Type 2 diabetes mellitus with diabetic chronic kidney disease; D63.8 Anemia in other chronic diseases classified elsewhere; N28.89 Other specified disorders of kidney and ureter; E11.51 Type 2 diabetes mellitus with diabetic peripheral angiopathy without gangrene; E78.00 Pure hypercholesterolemia, unspecified; E78.5 Hyperlipidemia, unspecified; Z79.01 Long term (current) use of anticoagulants; Z99.2 Dependence on renal dialysis; Z79.4 Long term (current) use of insulin; Z86.011 Personal history of benign neoplasm of the brain; Z86.73 Personal history of transient ischemic attack (TIA), and cerebral infarction without residual deficits; Z87.891 Personal history of nicotine dependence; Z79.899 Other long term (current) drug therapy; Z88.0 Allergy status to penicillin; Z88.2 Allergy status to sulfonamides; Z88.8 Allergy status to other drugs, medicaments and biological substances; Z79.82 Long term (current) use of aspirin; Z68.24 Body mass index [BMI] 24.0-24.9, adult; Y92.89 Other specified places as the place of occurrence of the external cause
CPT/HCPCS: 36415; 36600; 70551; 71045; 76937; 80048; 80053; 80185; 80305; 80320; 81003; 82375; 82805; 83735; 84100; 84484; 85025; 85027; 87804; 93005; 93306; 93970; 96365; 97162; 97166; 99291; C1725; J0360; J1953; J1956; J2060; J2405; J3490; J7050; G0480